=== PATIENT | male | born 1985 | race Caucasian/White ===

== ENCOUNTER 2023-02-24 06:07 | Outpatient (REF) | payer OTHER, SELFPAY ==
--- NOTE | ~2023-02-24 | XR_ITS ---
EXAMINATION: XR LUMBOSACRAL SPINE CLINICAL INFORMATION: Radiculopathy COMPARISON: None available. TECHNIQUE: Three views of the lumbosacral spine. FINDINGS: Mild curvature of the lumbar spine to the left. There may be transitional anatomy or 6 lumbar-type vertebral bodies. No fracture or dislocation. Mild lower lumbar spine degenerative spondylosis. Normal disc spaces. XR/XR lumbar spine 2-3V IMPRESSION: Mild curvature of the lumbar spine to the left and mild lower lumbar spine degenerative spondylosis.
[2023-02-24 06:31] LABS: MANUAL DIFF FLAG NO
[2023-02-24 07:27] LABS: Basophils Percent Auto 0.7 % (0-2); Eosinophils Absolute Auto 0.2 X10*3/uL (0.0-0.4); Hematocrit 45.7 % (42.0-52.0); Hemoglobin 15.6 g/dl (14.0-18.0); Imm Gran Abs Auto 0.01 X10*3/uL (0.00-0.03); Imm Gran Pct Auto 0.2 % (0.0-0.4); Lymphocytes Percent Auto 34.8 % (20-40); Mean Corpuscular HGB Conc 34.1 g/dl (31.0-36.0); Mean Corpuscular Hemoglobin 30.3 pg (27.0-33.0); Mean Corpuscular Volume 88.7 fL (80.0-98.0); Mean Platelet Volume 12.1 fL (9.4-12.4); Monocytes Absolute Auto 0.5 X10*3/uL (0.1-1.2); Monocytes Percent Auto 9.2 % (2-11); Neutrophils Absolute Auto 2.9 x10*3/uL (2.0-8.3); Neutrophils Percent Auto 51.1 % (45-73); Platelet Count 207 X10*3/uL (160-400); Red Blood Count 5.15 X10*6/uL (4.60-5.80); Red Cell Distribution Width 11.9 % (11.0-16.0); White Blood Count 5.8 X10*3/uL (4.8-10.8)
[2023-02-24 08:16] LABS: Alanine Aminotransferase 35 U/L (0-40); Albumin Level 4.3 g/dL (3.5-5.0); Alkaline Phosphatase 51 U/L (39-117); Anion Gap 11 (12-20); Aspartate Amino Transferase 26 U/L (5-37); Bilirubin Total 1.2 mg/dL (0.0-1.0); Blood Urea Nitrogen 16 mg/dL (9-16); Calcium 9.3 mg/dL (8.4-10.2); Carbon Dioxide 27 mmol/L (22-29); Chloride 108 mmol/L (96-108); Cholesterol 196 mg/dL; Estimated Glomerular Filt Rate > 60; Glucose Random 94 mg/dL (60-115); HDL Cholesterol 40 mg/dL; LDL Cholesterol Calculated 140 mg/dl; Potassium 4.1 mmol/L (3.3-5.1); Sodium 142 mmol/L (135-145); Total Protein 6.8 g/dL (6.5-8.0); Triglycerides 82 mg/dL
[2023-02-24 08:18] LABS: TSH reflex Free T4 2.09 uIU/mL (0.32-4.0)
== END 2023-02-24 06:08 | disposition home or self-care (01) ==
LOC: HO.XRAY 06:07
PROVIDERS: PCP Nurse Practitioner Family; Visit Provider Nurse Practitioner Family
DX: Z13.0 Encounter for screening for diseases of the blood and blood-forming organs and certain disorders involving the immune mechanism (principal); Z13.220 Encounter for screening for lipoid disorders; Z13.29 Encounter for screening for other suspected endocrine disorder; M54.16 Radiculopathy, lumbar region
CPT/HCPCS: 36415; 72100; 80053; 80061; 84443; 85025

== ENCOUNTER 2023-08-17 08:33 | Outpatient (AMB) | payer OTHER, SELFPAY ==
[2023-08-17 08:30] VITALS: BP 116/82; PULSE 56; O2SAT 98; BMI 35.9
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
== END 2023-08-17 08:55 | disposition home or self-care (01) ==
PROVIDERS: PCP Nurse Practitioner Family; Visit Provider Nurse Practitioner Family
DX: M54.16 Radiculopathy, lumbar region (principal); T59.811A Toxic effect of smoke, accidental (unintentional), initial encounter; G47.33 Obstructive sleep apnea (adult) (pediatric); E78.5 Hyperlipidemia, unspecified
CPT/HCPCS: 99214

== ENCOUNTER 2023-10-12 10:26 | Outpatient (AMB) | payer OTHER, SELFPAY ==
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
[2023-10-12 10:30] VITALS: BP 118/82; PULSE 77; O2SAT 97; BMI 36.9
== END 2023-10-12 10:44 | disposition home or self-care (01) ==
PROVIDERS: PCP Nurse Practitioner Family; Referring Provider Nurse Practitioner Family; Visit Provider Internal Medicine Pulmonary Disease
DX: T59.811A Toxic effect of smoke, accidental (unintentional), initial encounter (principal); R06.09 Other forms of dyspnea
CPT/HCPCS: 99204

== ENCOUNTER → 2023-10-12 10:26 | Outpatient (BNVA) | payer OTHER, SELFPAY | PROVIDERS: PCP Nurse Practitioner Family; Referring Provider Nurse Practitioner Family; Visit Provider Internal Medicine Pulmonary Disease | DX: T59.811A Toxic effect of smoke, accidental (unintentional), initial encounter (principal); R06.09 Other forms of dyspnea | CPT/HCPCS: 99202 ==

== ENCOUNTER 2023-11-24 07:00 | Outpatient (RCR) | payer OTHER, SELFPAY ==
--- NOTE | 2023-10-16 10:23 | MHC.PT.EP ---
[facility] [place] Office [place] Office [place] Office [address] Luz Hernandez [address] [phone] F: [phone] F: [phone] F: [phone] F: [phone] Physical Therapy Plan of Care Date of Evaluation: 10/16/23 Date of Surgery: none. Diagnosis: low back pain Assessment: Patient is a 38 year old R handed male who presents with s/s consistent with low back pain. 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 Patient past medical history includes sleep apnea and PTSD. Current impairments include pain, posture, ROM, strength, flexibility, activity tolerance and functional mobility. Functional limitations include decreased ability to walk, exercise, stand longer duration, squat, lift and run. Patient is motivated with good rehab potential. Skilled PT will address impairments and functional limitations in order to achieve goals. Frequency and Duration: The patient will be seen 2x/week for 5 weeks Short Term Goals: I with HEP - 2 weeks Centralized s/s - 3 weeks Tissue tension of lumbar spine and piriformis absent - 3 weeks Snf Goals: Able to walk/stand 1 hour or greater without increased s/s - 5 weeks Oswestry 12% or less - 5 weeks Max pain with ADLs - 2/10 - 5 weeks I with central/periph concept - 5 weeks Treatment Plan: Modalities to reduce pain, spasms and effusion. Manual therapy to restore motion and function. Therapeutic exercise to improve strength and flexibility. Neuromuscular re-education for posture and balance. Therapeutic activities to return to functional activities of daily living. Electronically signed by: Derrek Mccallum, PT Please sign and return to therapist. Thank you for your referral.
--- NOTE | 2024-06-13 11:09 | MHC.PT.DC ---
[facility] [place] Office [address] Luz Hernandez [address] [phone] F: [phone] F: [phone] F: [phone] F: [phone] Physical Therapy Discharge Report Diagnosis: low back pain Date of Surgery: none. Date of Evaluation: 10/16/23 Date of Discharge: 01/05/24 Treatments to Date: 7 Cancellations to Date: No Shows to Date: Discharge Status: Independent with HEP Discharge Summary: 11/24/23: pt with significantly less s/s than when he started. improved understanding of how to manage s/s when he does feel the onset. he is I with HEP. s/s centralized. tissue tension still present but to minimal degree. He is able to walk and stand > 1 hour without increased s/s . Max pain with ADLs 11/11. Oswestry 28%. 11/22/23: still with increased R piriformis tissue tension. he does respond well to above program and still needs continued hip strength, flex symmetry. 11/13/23: increasing independence. progressing well. still with pain with walking, group home weight bearing. strength and flexibility discrepancies still present. continue to progress as tolerated. 11/06/23: pt is progressing well. we are taping down to 1x/week for 2 more weeks and with likely transition to stretching and core strength HEP. 10/30/23: pt progressing well with skilled PT. no adverse reactions. reduced pain overall. we will progress functional activities NV. 10/25/23: pt progressing well with skilled PT. added stretching today and pt notes reduced s/s into LE. reduced severity around SI/lumbar area. continue to progress core stab and flex. 10/23/23: Pt progressed with skilled PT. added stretching and manual intervention. IFC to finish. assess response NV. normal skin presentation post. Patient is a 38 year old R handed male who presents with s/s consistent with low back pain. 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 Patient past medical history includes sleep apnea and PTSD. Current impairments include pain, posture, ROM, strength, flexibility, activity tolerance and functional mobility. Functional limitations include decreased ability to walk, exercise, stand longer duration, squat, lift and run. Patient is motivated with good rehab potential. Skilled PT will address impairments and functional limitations in order to achieve goals. Electronically signed by: Derrek Mccallum, PT Please sign and return to therapist. Thank you for your referral.
== END 2024-06-13 11:10 | disposition home or self-care (01) ==
LOC: HO.PTCHIC 07:00
PROVIDERS: PCP Nurse Practitioner Family; Visit Provider Nurse Practitioner Family
DX: M54.16 Radiculopathy, lumbar region (principal)
CPT/HCPCS: 97014; 97110; 97140; 97161

== ENCOUNTER 2023-11-24 08:54 | Outpatient (REF) | payer OTHER, SELFPAY ==
[2023-11-24 08:32] VITALS: PULSE 80; RESP 14; O2SAT 97
--- NOTE | 2023-11-24 11:20 | PFT_ITS ---
Flows: FEV1: 101 % of predicted at 5.19 L FVC: 99 % of predicted at 6.40 L FEV1/FVC: 81 % Bronchodilator response: Absent Volumes: Total lung capacity: 90 % of predicted at 7.80 L Residual volume: 67 % of predicted at 1.29 L Slow vital capacity: 96 % of predicted at 6.51 L Expiratory reserve volume: 63 % of predicted at 1.37 L Diffusion capacity: Normal Impression: No obstructive or restrictive ventilatory defect. No bronchodilator response. Essentially normal pulmonary function test. MTDD
== END 2023-11-24 08:55 | disposition home or self-care (01) ==
LOC: HO.RESP 08:54
PROVIDERS: Visit Provider Internal Medicine Pulmonary Disease
DX: T59.811A Toxic effect of smoke, accidental (unintentional), initial encounter (principal)
CPT/HCPCS: 94010; 94640; 94727; 94729

== ENCOUNTER → 2023-11-24 11:20 | Outpatient (BNV) | payer OTHER, SELFPAY | PROVIDERS: Visit Provider Internal Medicine Pulmonary Disease | DX: R06.09 Other forms of dyspnea (principal) | CPT/HCPCS: 94060; 94727; 94729 ==

== ENCOUNTER 2023-12-08 15:22 | Outpatient (REF) | payer OTHER, SELFPAY ==
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
== END 2023-12-08 15:23 | disposition home or self-care (01) ==
LOC: HO.CT 15:22
PROVIDERS: PCP Nurse Practitioner Family; Visit Provider Internal Medicine Pulmonary Disease
DX: T59.811A Toxic effect of smoke, accidental (unintentional), initial encounter (principal)
CPT/HCPCS: 71250

== ENCOUNTER 2023-12-13 08:54 | Outpatient (AMB) | payer OTHER, SELFPAY ==
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
[2023-12-13 09:05] VITALS: BP 122/78; PULSE 66; O2SAT 99; BMI 37.6
== END 2023-12-13 09:19 | disposition home or self-care (01) ==
PROVIDERS: PCP Nurse Practitioner Family; Referring Provider Nurse Practitioner Family; Visit Provider Internal Medicine Pulmonary Disease
DX: T59.811A Toxic effect of smoke, accidental (unintentional), initial encounter (principal); R91.8 Other nonspecific abnormal finding of lung field
CPT/HCPCS: 99214

== ENCOUNTER → 2023-12-13 08:54 | Outpatient (BNVA) | payer OTHER, SELFPAY | PROVIDERS: PCP Nurse Practitioner Family; Visit Provider Internal Medicine Pulmonary Disease | DX: J45.909 Unspecified asthma, uncomplicated (principal); T59.811A Toxic effect of smoke, accidental (unintentional), initial encounter; R91.8 Other nonspecific abnormal finding of lung field; Z87.891 Personal history of nicotine dependence | CPT/HCPCS: 99212 ==

== ENCOUNTER 2024-02-21 07:52 | Outpatient (AMB) | payer OTHER, SELFPAY ==
--- NOTE | 2024-02-21 07:55 | A.OFFPC_ITS ---
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 Pt is active . He has put in 20 yrs and will be retiring next year. Reports constant back pain and right hip pain for the past few years. Unable to walk more than a mile. Pain in the right hip radiating into the leg. Has had PT a month ago. Not much improvement. Tried OTC meds with minimal relief. Reluctant to take prescription anti inflammatories without exact diagnosis. Gives history of PTSD. Would like to speak to a therapist. [facility] Medical History (Updated 02/21/24 @ 08:29 by Kalpesh Sheldon MD) Lumbar back pain with radiculopathy affecting right lower extremity Adjustment disorder Surgical History No pertinent past surgical history Family History Father COPD (chronic obstructive pulmonary disease) CHF (congestive heart failure) Mother Hypertension High cholesterol Brother High cholesterol Maternal Grandfather Skin cancer Social History Housing: House Alcohol intake: current Alcohol intake frequency: a few times a week Alcohol type: hard liquor Patient Tobacco Use Status: Current someday Tobacco user Tobacco use type: Cigar and Smokeless Tobacco (Chewing Tobacco) e-Cigarette/Vaping Use: Never Used Second Hand Smoke Exposure: No service: Yes Current occupational status: employed Current occupational exposures/hazards: No Cognitive needs: No Hearing needs: No Vision needs: No Questionnaire PHQ-9 Over the last 2 weeks, how often have you been bothered by any of the following problems? 1. Little interest or pleasure in doing things: several days 2. Feeling down, depressed, or hopeless: several days 3. Trouble falling or staying asleep, or sleeping too much: nearly every day 4. Feeling tired or having little energy: more than half the days 5. Poor appetite or overeating: not at all 6. Feeling bad about yourself - or that you are a failure or have let yourself or your family down: not at all 7. Trouble concentrating on things, such as reading the newspaper or watching television: not at all 8. Moving or speaking so slowly that other people could have noticed. Or the opposite - being so fidgety or restless that you have been moving around a lot more than usual: not at all 9. Thoughts that you would be better off or of hurting yourself in some way: not at all Total score: 7 Depression Screening Interpretation: Positive Depression Screening Follow-up: Existing condition and Community Mental Health Worker F/U Depression Screening Done: Yes Source: Developed by Drs. Gwyn Ballesteros, Aby Lua, Selvin Albarran and colleagues, with an educational juvenal from [employer]. Thrive Questionnaire Date Thrive assessed: 02/21/24 I am a: Patient What is your living situation today?: I have a steady place to live Within the past 12 months, did the food you bought not last and you didn't have the money to get more?: Never true Within the past 12 months, did you worry whether your food would run out before you got money to buy more?: Never true Do you have trouble paying for medicines?: No Do you have trouble getting transportation to medical appointments?: No Do you have trouble paying your heating and electricity bill?: No Do you have trouble taking care of your child, family member or friend?: No Do you have trouble with day-to-day activities such as bathing, preparing meals, shopping, managing finances, etc.?: No Are you currently unemployed and looking for a job?: No Are you interested in more education?: No Please select the resources that you would like help with: None Currently or been in a relationship where the following occur: no concerns repo rted THRIVE Score: 0 AUDIT C Alcohol Use Questionnaire (AUDIT-C) 1. How often do you have a drink containing alcohol?: Monthly or less 2. How many drinks containing alcohol do you have on a typical day when you are drinking?: 1 or 2 3. How often do you have six or more drinks on one occasion?: Never Total Score: 1 HARSH-7 AMB Questionnaire HARSH-7 Date HARSH - 7 assessed: 02/21/24 Feeling nervous, anxious, or on edge: 2 = More than half the days Not being able to stop or control worryin = Not at all Worrying too much about different things: 2 = More than half the days Trouble relaxin = Not at all Being so restless that it is hard to sit still: 0 = Not at all Becoming easily annoyed or irritable: 2 = More than half the days Feeling afraid as if something awful might happen: 0 = Not at all Total HARSH-7 score (0-4 normal; 5-9 mild; 10-14 moderate; 15-21 severe): 6 Source: Developed by Drs. Gwyn Ballesteros, Aby Lua, Selvin Albarran and colleagues, with an educational juvenal from [employer]. Physical exam (Primary Care) Vital Signs: Last Vital Signs Pulse 77 02/21/24 07:57 BP 126/84 02/21/24 07:57 Pulse Ox 97 02/21/24 07:57 Oxygen Delivery Method Room Air 02/21/24 07:57 Care Plan Goal for BP management: BP is in range. BMI result Body Mass Index 36.6 BMI Assessment/Plan discussion: High (One pound per week weight suggested) BMI High, discussed plan: lifestyle, weight reduction, dietary and physical activity Tobacco/Smoking Status: Tobacco use Status Tobacco use date assessed 02/21/24 02/21/24 08:03 Patient Tobacco Use Status Current someday Tobacco 02/21/24 08:03 Tobacco use type Cigar,Smokeless Tobacco ( 02/21/24 08:03 Chewing Tobacco) e-Cigarette/Vaping Use Never Used 02/21/24 08:03 Are you ready to quit: No PHQ-9: PHQ-9 Score PHQ-9: Total score 7 02/21/24 08:03 Depression Screening Interpretation: Positive Depression Screening Follow-up: Existing condition and Community Mental Health Worker F/U Thrive Assessment: Date of Thrive Assessment Date Thrive assessed 02/21/24 02/21/24 08:03 Currently or been in a relationship where the following occur: no concerns reported Assessment and Plan Assessment & Plan (1) Lumbar back pain with radiculopathy affecting right lower extremity: Code(s): M54.16 - Radiculopathy, lumbar region Plan: MRI hip and lower back ordered. Pt was encuoraged to use muscle relaxants. (2) Borderline hyperlipidemia: Code(s): E78.5 - Hyperlipidemia, unspecified Plan: Will call with results (3) Annual physical exam: Code(s): Z00.00 - Encounter for general adult medical examination without abnormal findings Plan: Blood work ordered. Will call with results (4) Adjustment disorder: Code(s): F43.20 - Adjustment disorder, unspecified Plan: [facility] requesting a therapist Orders: Orders Basic Metabolic Panel Today E78.5 - Hyperlipidemia, unspecified, M54.16 - Radiculopathy, lumbar region Lipid Panel Today E78.5 - Hyperlipidemia, unspecified, M54.16 - Radiculopathy, lumbar region Liver Panel Today E78.5 - Hyperlipidemia, unspecified, M54.16 - Radiculopathy, lumbar region UA and rflx microscopic Today E78.5 - Hyperlipidemia, unspecified, M54.16 - Radiculopathy, lumbar region Complete Blood Count no Diff Today E78.5 - Hyperlipidemia, unspecified, M54.16 - Radiculopathy, lumbar region Thyroid Stimulating Hormone Today E78.5 - Hyperlipidemia, unspecified, M54.16 - Radiculopathy, lumbar region MR hip LT wo con Today M54.16 - Radiculopathy, lumbar region Coding Level of Care Code Est Pt Prev Care 18-39y(78026) Diagnoses Lumbar back pain with radiculopathy affecting right lower extremity M54.16 Borderline hyperlipidemia E78.5 Annual physical exam Z00.00 Adjustment disorder F43.20
[2024-02-21 07:57] VITALS: BP 126/84; PULSE 77; O2SAT 97; BMI 36.6
== END 2024-02-21 08:16 | disposition home or self-care (01) ==
PROVIDERS: PCP Nurse Practitioner Family; Visit Provider Internal Medicine
DX: M54.16 Radiculopathy, lumbar region (principal); E78.5 Hyperlipidemia, unspecified; Z00.00 Encounter for general adult medical examination without abnormal findings; F43.20 Adjustment disorder, unspecified
CPT/HCPCS: 99395

== ENCOUNTER 2024-05-29 09:16 | Outpatient (REF) | payer OTHER, SELFPAY ==
--- NOTE | ~2024-05-29 | MR_ITS ---
EXAMINATION: MR LUMBAR SPINE WITHOUT CONTRAST CLINICAL INFORMATION: Radiculopathy COMPARISON: None TECHNIQUE: MRI of the lumbar spine was obtained using routine sequences without contrast. FINDINGS: For the purposes of this dictation, the last formed disc space is designated L5-S1. Hypoplastic or absent ribs at T12. Mild leftward curvature of the lumbar spine. Lumbar straightening. Trace anterolisthesis of L3 on L4. No suspicious marrow signal or focal osseous lesion. No significant marrow edema. Several small endplate Schmorl's nodes including type II marrow signal changes associated with a Schmorl's node along the anterior aspect of the L4 inferior endplate. The vertebral body heights are maintained. Mild multilevel disc dessication and height loss. The conus medullaris terminates at the level of L1. The distal spinal cord is normal in appearance. The cauda equina nerve roots appear normal. No significant abnormalities of the paraspinal musculature. Limited evaluation of the intra-abdominal structures without significant abnormalities. The abdominal aorta is of normal contour and caliber. SPINAL LEVELS: L1-L2: No significant spinal canal or neuroforaminal narrowing. L2-L3: Shallow disc bulge and mild facet arthropathy. Bilateral subarticular zone narrowing. No significant spinal canal or neural foraminal narrowing. L3-L4: Facet arthropathy, worst in moderate to severe on the right. Trace anterolisthesis with posterior disc uncovering. No significant central spinal canal stenosis. Bilateral subarticular zone narrowing and moderate bilateral neural foraminal narrowing, right greater than left. L4-L5: Facet arthropathy, shallow disc bulge. No significant central spinal canal stenosis. [id number] bilateral neural foraminal narrowing L5-S1: No significant spinal canal or neuroforaminal narrowing. Facet arthropathy. MR/MR lumbar spine wo con IMPRESSION: 1. Mild leftward curvature of the lumbar spine with superimposed multilevel spondylosis as described above without significant central spinal canal narrowing. Degenerative changes are most notable at L3-L4 where asymmetric right greater than left facet arthropathy results in trace anterolisthesis and moderate right greater than left neural foraminal narrowing 2. Please refer to numbering convention as above with last formed disc space designated L5-S1 and absent or hypoplastic ribs at T12. Electronically signed by: Abdoulaye Collier MD 06/17/2024 12:47 PM EDT RP
== END 2024-05-29 09:17 | disposition home or self-care (01) ==
LOC: HO.MRI 09:16
PROVIDERS: PCP Internal Medicine; Visit Provider Internal Medicine
DX: M54.16 Radiculopathy, lumbar region (principal)
CPT/HCPCS: 72148

== ENCOUNTER 2024-06-20 10:20 | Outpatient (AMB) | payer OTHER, SELFPAY ==
--- NOTE | 2024-06-20 10:35 | MHC.PC.OV ---
Vital Signs 06/20/24 10:37 Height 6 ft 5 in Weight 312 lb 4 oz BMI 37.0 BP 110/60 Blood Pressure Location Lt brachial Position Sitting Pulse 70 Pulse Source Pulse Oximeter Pulse Oximetry (%) 98 Oxygen Delivery Method Room Air Intake Visit Reasons: Knee pain/ Referral to ENT & Psy Intake Note: Patient is here to follow up on right Knee pain, requesting for referral to ENT for post nasal drip and Psy for PTSD and MRI result. Gradall Operator Required: No Grease Maker: Not Required per policy Accompanied by: Self / Same As Patient Allergies amoxicillin Allergy (Mild, Verified 06/20/24 10:37) Hives Tobacco use date assessed: 06/20/24 Dental Screening Dental Screen Date: 02/21/24 HPI HPI Comments History of Present Illness Details 39-year-old male presents to the office to discuss his medical conditions. Patient continues to have lower back pain. He recently had an MRI done and would like to discuss the results. Patient also reports history of an adjustment disorder with depression. 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 Also reporting symptoms of persistent postnasal drip and a nonproductive cough. [facility] Medical History (Updated 02/21/24 @ 08:29 by Kalpesh Sheldon MD) Lumbar back pain with radiculopathy affecting right lower extremity Adjustment disorder Surgical History No pertinent past surgical history Family History Father COPD (chronic obstructive pulmonary disease) CHF (congestive heart failure) Mother Hypertension High cholesterol Brother High cholesterol Maternal Grandfather Skin cancer Social History Housing: House Alcohol intake: current Alcohol intake frequency: a few times a week Alcohol type: hard liquor Patient Tobacco Use Status: Current someday Tobacco user Tobacco use type: Cigar (once a month) and Smokeless Tobacco (Chewing Tobacco) e-Cigarette/Vaping Use: Never Used Second Hand Smoke Exposure: Yes service: Yes Current occupational status: employed Current occupational exposures/hazards: No Cognitive needs: No Hearing needs: No Vision needs: No Questionnaire PHQ-9 Over the last 2 weeks, how often have you been bothered by any of the following problems? 1. Little interest or pleasure in doing things: several days 2. Feeling down, depressed, or hopeless: several days 3. Trouble falling or staying asleep, or sleeping too much: several days 4. Feeling tired or having little energy: nearly every day 5. Poor appetite or overeating: not at all 6. Feeling bad about yourself - or that you are a failure or have let yourself or your family down: nearly every day 7. Trouble concentrating on things, such as reading the newspaper or watching television: nearly every day 8. Moving or speaking so slowly that other people could have noticed. Or the opposite - being so fidgety or restless that you have been moving around a lot more than usual: not at all 9. Thoughts that you would be better off or of hurting yourself in some way: not at all Total score: 12 Depression Screening Interpretation: Positive Depression Screening Follow-up: Community Mental Health Worker F/U Depression Screening Done: Yes Source: Developed by Drs. Gwyn Ballesteros, Aby Lua, Selvin Albarran and colleagues, with an educational juvenal from [employer]). Thrive Questionnaire Date Thrive assessed: 02/21/24 Are you currently unemployed and looking for a job?: No AUDIT C Alcohol Use Questionnaire (AUDIT-C) 1. How often do you have a drink containing alcohol?: 2-3 times a week 2. How many drinks containing alcohol do you have on a typical day when you are drinking?: 1 or 2 Total Score: 3 HARSH-7 AMB Questionnaire HARSH-7 Date HARSH - 7 assessed: 06/20/24 Feeling nervous, anxious, or on edge: 3 = Nearly every day Not being able to stop or control worryin = Nearly every day Worrying too much about different things: 3 = Nearly every day Trouble relaxin = Nearly every day Being so restless that it is hard to sit still: 3 = Nearly every day Becoming easily annoyed or irritable: 3 = Nearly every day Feeling afraid as if something awful might happen: 3 = Nearly every day Total HARSH-7 score (0-4 normal; 5-9 mild; 10-14 moderate; 15-21 severe): 21 Source: Developed by Drs. Gwyn Ballesteros, Selvin Carranzaoenke and colleagues, with an educational juvenal from [employer] ([employer]). Physical exam (Primary Care) Vital Signs: Last Vital Signs Pulse 70 06/20/24 10:37 BP 110/60 06/20/24 10:37 Pulse Ox 98 06/20/24 10:37 Oxygen Delivery Method Room Air 06/20/24 10:37 BMI result Body Mass Index 37.0 Tobacco/Smoking Status: Tobacco use Status Tobacco use date assessed 06/20/24 06/20/24 10:57 Patient Tobacco Use Status Current someday Tobacco 06/20/24 10:57 Tobacco use type Cigar (once a month), 06/20/24 10:57 Smokeless Tobacco (Chewing Tobacco) e-Cigarette/Vaping Use Never Used 06/20/24 10:57 PHQ-9: PHQ-9 Score PHQ-9: Total score 12 06/20/24 10:57 Depression Screening Interpretation: Positive Depression Screening Follow-up: Community Mental Health Worker F/U Thrive Assessment: Date of Thrive Assessment Date Thrive assessed 02/21/24 06/20/24 10:57 Const General: cooperative and healthy appearing Nutritional Appearance: well nourished Orientation/consciousness: patient oriented x3 Limitations: no limitations HENMT Head: Yes normal to inspection Eyes General: appearance normal, both eyes and all related structures Neck Neck: Yes normal visual inspection Chest Chest palpation & inspection: normal palpation of entire chest wall Resp Effort & Inspection: normal respiratory effort Neuro General: patient oriented x3 Assessment and Plan Assessment & Plan (1) PTSD (post-traumatic stress disorder): Code(s): F43.10 - Post-traumatic stress disorder, unspecified Plan: Appointment with psychiatry/therapist requested. (2) Lumbar back pain with radiculopathy affecting right lower extremity: Code(s): M54.16 - Radiculopathy, lumbar region Plan: MRI of the spine shows foraminal stenosis. An appointment with the spinal surgeon to be made. (3) Postnasal Drip: Code(s): R09.82 - Postnasal drip Plan: ENT appointment requested. Flonase has been added to the regimen. Orders: Referrals Ear/Nose/Throat Referral F43.10 - Post-traumatic stress disorder, unspecified, R09.82 - Postnasal drip Psychiatry Outpatient Consultation Service F43.10 - Post-traumatic stress disorder, unspecified Neuro Spine Referral M54.16 - Radiculopathy, lumbar region Coding Level of Care Code Est Pt Level 4 (00100) Complex EM visit Add On G2211 Diagnoses PTSD (post-traumatic stress disorder) F43.10 Lumbar back pain with radiculopathy affecting right lower extremity M54.16 Postnasal Drip R09.82
[2024-06-20 10:37] VITALS: BP 110/60; PULSE 70; O2SAT 98; BMI 37.0
== END 2024-06-20 11:16 | disposition home or self-care (01) ==
PROVIDERS: PCP Internal Medicine; Visit Provider Internal Medicine
DX: F43.10 Post-traumatic stress disorder, unspecified (principal); M54.16 Radiculopathy, lumbar region; R09.82 Postnasal drip

== ENCOUNTER → 2024-06-20 10:20 | Outpatient (BNVA) | payer OTHER, SELFPAY | PROVIDERS: PCP Internal Medicine; Visit Provider Internal Medicine | DX: M54.16 Radiculopathy, lumbar region (principal); F43.10 Post-traumatic stress disorder, unspecified; R09.82 Postnasal drip | CPT/HCPCS: 99212 ==

== ENCOUNTER 2024-06-28 10:24 | Outpatient (AMB) | payer OTHER, SELFPAY ==
--- NOTE | 2024-06-28 10:33 | HO.SPINEOV ---
Intake Visit Reasons: low back pain Intake Note: Ms. Lowe is here today c/o low back pain. 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 He generally just put up with the discomfort, but over time it has been getting progressively worse. He used to be very active, now has had 2 avoid doing things like running because it will aggravate the symptoms significantly. The pain is localized over his right SI joint region and seems to radiate down around to his right hip. He does not have any radicular pain shooting down the leg, tingling numbness weakness, bowel bladder incontinence etc.. He did undergo an MRI showing some foraminal stenosis on the right at L3 and was sent today for an evaluation. He can have a flare-up from time to time that will incapacitated him for few days. Generally he gets through this with things like ibuprofen, localized skin patches and tiger balm etc.. He did do physical therapy for awhile. It did seem to help a little bit. When he was doing the band exercises with abduction for his hips it seemed to make the symptoms get worse. He still does some of them at home. PMH: Vasectomy Social hx: Does not smoke drink use any recreational drugs Medications: None Allergies: Amoxicillin Physical exam: He is 6'3 , 295 lb. Strength and reflexes are normal. He does have pain with internal and external rotation of his legs that does mimic the pain that he gets when he is walking. Imaging review: Lumbar MRI shows varying degrees of mild degenerative disc disease, there is moderate right L3 stenosis. No significant central canal stenosis. A mild levoscoliosis but nothing meaningful. 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 The symptoms have slowly gotten worse over time. He has no radicular symptoms down the leg. He can get flare-ups from time to time that will incapacitated him for a few days. He generally gets out of this with tincture of time, ibuprofen etc.. Standing and walking he can feel it most of the time, running can make it flare-up a lot. On exam, he has reassuring neurological examination, does have tenderness over the SI joint and pain with internal and external rotation of his hip. His lumbar MRI does show some mild degenerative disc disease with a very subtle levoscoliosis, there is some mild to moderate right foraminal stenosis. Nothing on his MRI looks surgical at this time. I think what he is dealing with his likely some kind of overuse injury from the days of carrying very heavy packs going on extended 20-30 mi hikes with this weight on his back. It could be an SI joint inflammation, or some kind of tendinopathy. I do not think it is discogenic and he does not have any radicular symptoms to correlate to the L3 foraminal stenosis. I think what he would benefit most from is a physiatry evaluation. I will send him to Dr. Sandoval and Jordan GARY to see if they have any thoughts on what might help him. Thank you for allowing us to care for your patient. The total time spent with this visit with this patient was 45 minutes reviewing history, physical exam, lumbar imaging review, and implementation of treatment plan or further diagnostic testing Manas Marie MD,PhD [facility] Orders: Referrals Physiatry Referral M54.9 - Dorsalgia, unspecified Coding Level of Care Code New Pt Level 4 (03021) Diagnoses Back pain M54.9
== END 2024-06-28 11:07 | disposition home or self-care (01) ==
PROVIDERS: PCP Internal Medicine; Referring Provider Internal Medicine; Visit Provider Physician Assistant
DX: M54.9 Dorsalgia, unspecified (principal)
CPT/HCPCS: 99204

== ENCOUNTER → 2024-06-28 10:24 | Outpatient (BNVA) | payer OTHER, SELFPAY | PROVIDERS: PCP Internal Medicine; Visit Provider Physician Assistant | DX: M54.9 Dorsalgia, unspecified (principal) | CPT/HCPCS: 99202 ==

== ENCOUNTER 2024-08-08 14:21 | Outpatient (AMB) | payer OTHER, SELFPAY ==
--- NOTE | 2024-08-08 13:12 | A.OFFPSYCH_ITS ---
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 He served two tours in the [facility] in [place] and [place]. Pt stated he witnessed several deaths, bodies, and violence during his tours. He has been able to compartmentalize the memories and feelings most of the time for years, but its become more difficult over time; He has coped by working and by staying very task oriented during the day and then using alcohol at night. He reports the memories and images of the war are constantly intruding in his mind; He is on high alert no matter where he goes. he is always casing the the place for exits and to make sure his family is safe. He feels at times that all the violence he experienced and lived through was for no reason. 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 He himself had contemplated and planned a suicide in 2016 when he was overwhelmed with distress. He did not follow through because he thought of his children; He is very close with his and dedicated to his family. He is not currently suicidal but struggles with PTSD symptoms, feelings of guilt, remorse, and trying to make sense of all his experiences. Pt reports he drinks approximately 5 days a week and upt to 4 drinks. Pt stated he has come to the point where he feels he is unable to suppress his traumatic memories (has constant images playing in his mind from war), and feels he needs medications and psychotherapy. Past Psychiatric History: brief treatment in 2010 but feared judgement from peers Subjective Subjective Subjective Medication Compliance: Yes Side effects from medications: No Review of Systems Medical Review of Systems: unchanged Mental Status Exam Mental Status Exam Patient Appearance: Appropriate Patient Orientation: Person, Place, Time and Situation Level of Consciousness: Appropriate Patient Behavior: Appropriate, Swearing, Crying (tearful) and Poor Eye Contact (off and on ) Mood Description: Depressed Affect Description: Depressed Patient Cognition Impaired: No Ability to Follow Directions: Good Speech Pattern: Difficulty Finding Words, Appropriate and Coherent Memory Description: Intact and Episodic Impaired Hallucinations: None Delusions: Not Present Thought Process: Intact and Racing (some flooding of trauma related images, sensations, feelings) Thought Content: positive for Goal Oriented and positive for Loose Associations Judgement: Good Assessment and Plan Assessment & Plan (1) PTSD (post-traumatic stress disorder): Status: Acute Code(s): F43.10 - Post-traumatic stress disorder, unspecified Plan start Prozac 20 mg daily start gababpentin 100mg in evening consider EMDR therpay consider vet group therapy consider cutting back on etoh use Medications: New fluoxetine (Prozac) 20 mg PO DAILY 30 caps 1RF gabapentin 100 mg PO BEDTIME 30 caps 1RF Counseling and coordination of Care Pt. Self Management counseling: Maintenance-social rhythm, Mod caffeine/ETOH intake, General coping skills and Greif counseling Medication management counseling: Effectiveness, Side effects, Dosing range, Duration, Drug interaction and Adherence Diagnosis and Prognosis Counseling: Accuracy of diagnosis, Prognosis over time, Impact of diagnosis on life functions, Impact of family relationship, Probl ematic behaviors secondary to diagnosis and Adequacy of current interventions Details: I spent 75 minutes reviewing the record, seeing the patient and documenting in the medical record. Counseling provided to the patient/caregiver as outlined below. Addressed patient/caregiver concerns regarding current medication regime including effective adherence. Addressed patient/caregiver concerns regarding diagnosis and prognosis including accuracy of diagnosis, prognosis over time, impact of diagnosis. Addressed patient/caregiver concerns regarding impact of recent stressors. [facility] Medical History (Updated 06/28/24 @ 10:59 by ABDIRAHMAN Miller) Lumbar back pain with radiculopathy affecting right lower extremity Adjustment disorder Surgical History No pertinent past surgical history Family History Father COPD (chronic obstructive pulmonary disease) CHF (congestive heart failure) Mother Hypertension High cholesterol Brother High cholesterol Maternal Grandfather Skin cancer Social History Housing: House Alcohol intake: current Alcohol intake frequency: a few times a week Alcohol type: hard liquor Patient Tobacco Use Status: Current someday Tobacco user Tobacco use type: Cigar (once a month) and Smokeless Tobacco (Chewing Tobacco) e-Cigarette/Vaping Use: Never Used Second Hand Smoke Exposure: Yes service: Yes Current occupational status: employed Current occupational exposures/hazards: No Cognitive needs: No Hearing needs: No Vision needs: No Social History: lives with of 17 years and his 2 children age 11 and 15. He works FT in [employer]; grew up with both parents until they divorce when he was 10 yrs old; has an older brother; was very close to father who was also in ; father from unexpected complication of COPD in 2021 at the age of 66. Substance History: etoh 5 days a week 4 drinks Trauma History: yes age 22- 2 tours in the [facility] 2008 and 2010. Coding Level of Care Code Psych Diag Eval w/Med (22954) Diagnoses PTSD (post-traumatic stress disorder) F43.10
== END 2024-08-08 15:42 | disposition home or self-care (01) ==
LOC: HO.HOP 14:21
PROVIDERS: PCP Internal Medicine; Visit Provider Clinical Nurse Specialist Psychiatric/Mental Health
DX: F43.10 Post-traumatic stress disorder, unspecified (principal)
CPT/HCPCS: 90792

== ENCOUNTER → 2024-08-08 14:21 | Outpatient (BNVA) | payer OTHER, SELFPAY | PROVIDERS: PCP Internal Medicine; Visit Provider Clinical Nurse Specialist Psychiatric/Mental Health | DX: F43.10 Post-traumatic stress disorder, unspecified (principal); F10.20 Alcohol dependence, uncomplicated; Z91.85 Personal history of military service; Z91.82 Personal history of military deployment | CPT/HCPCS: 90792 ==

== ENCOUNTER 2024-09-05 09:59 | Outpatient (AMB) | payer OTHER, SELFPAY ==
--- NOTE | 2024-09-05 10:22 | MHC.OFFVISPS ---
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 He reports less reactivity. He did not take gabapentin; he has cut back ETOH use. No side effects from meds. Pt reports he can think about war memories without feeling completely overwhelmed at times. He is still sorting through his experiences and making sense of them. Discussed trauma and development of internal parts to cope. Discussed positive psychology strategies to utilize in current day life to increase good feelings when not in crisis/ high adrenaline situations. No SI or HI. Past Psychiatric History: brief outpt treatment in 2010 but feared judgement from peers Subjective Subjective Subjective Medication Compliance: Yes Side effects from medications: No Review of Systems Medical Review of Systems: unchanged Mental Status Exam Mental Status Exam Patient Appearance: Well Grooomed and Appropriate Patient Orientation: Person, Place, Time and Situation Level of Consciousness: Awake, Appropriate and Alert Patient Behavior: Appropriate, Talkative and Cooperative Mood Description: Anxious and Sad Affect Description: Anxious, Blunted and Sad Patient Cognition Impaired: No Ability to Follow Directions: Good Speech Pattern: Appropriate and Coherent Memory Description: Episodic Impaired Hallucinations: None Delusions: Not Present Thought Process: Intact Thought Content: positive for Intact and positive for Loose Associations Judgement: Good Assessment and Plan Assessment & Plan (1) PTSD (post-traumatic stress disorder): Status: Acute Code(s): F43.10 - Post-traumatic stress disorder, unspecified Plan continue prozac consider individual therapy Medications: Refilled fluoxetine (Prozac) 20 mg PO DAILY 30 caps 1RF Counseling and coordination of Care Pt. Self Management counseling: Maintenance-social rhythm, Mod caffeine/ETOH intake, Sleep hygiene, Behavior activation, Cognitive restructuring, General coping skills, Greif counseling and Problem solving Medication management counseling: Effectiveness, Side effects, Dosing range, Duration, Drug interaction and Adherence Diagnosis and Prognosis Counseling: Accuracy of diagnosis, Prognosis over time, Impact of diagnosis on life functions, Impact of family relationship, Problematic behaviors secondary to diagnosis and Adequacy of current interventions Details: I spent 55 minutes reviewing the record, seeing the patient and documenting in the medical record. Counseling provided to the patient/caregiver as outlined below. Addressed patient/caregiver concerns regarding current medication regime including effective adherence. Addressed patient/caregiver concerns regarding diagnosis and prognosis including accuracy of diagnosis, prognosis over time, impact of diagnosis. Addressed patient/caregiver concerns regarding impact of recent stressors. [facility] Medical History (Updated 06/28/24 @ 10:59 by ABDIRAHMAN Miller) Lumbar back pain with radiculopathy affecting right lower extremity Adjustment disorder Surgical History No pertinent past surgical history Family History Father COPD (chronic obstructive pulmonary disease) CHF (congestive heart failure) Mother Hypertension High cholesterol Brother High cholesterol Maternal Grandfather Skin cancer Social History Housing: House Alcohol intake: current Alcohol intake frequency: a few times a week Alcohol type: hard liquor Patient Tobacco Use Status: Current someday Tobacco user Tobacco use type: Cigar (once a month) and Smokeless Tobacco (Chewing Tobacco) e-Cigarette/Vaping Use: Never Used Second Hand Smoke Exposure: Yes service: Yes Current occupational status: employed Current occupational exposures/hazards: No Cognitive needs: No Hearing needs: No Vision needs: No Social History: lives with of 17 years and his 2 children age 11 and 15. He works FT in [employer]; grew up with both parents until they divorce when he was 10 yrs old; has an older brother; was very close to father who was also in ; father from unexpected complication of COPD in 2021 at the age of 66. Substance History: etoh 5 days a week 4 drinks Trauma History: yes age 22- 2 tours in [facility] 2008 and 2010. Coding Level of Care Code Est Pt Level 4 (84779) Therapy 30m w/E&M (84919) Diagnoses PTSD (post-traumatic stress disorder) F43.10
--- OUTSIDE RECORDS SUMMARY | 2024-09-11 01:26 | XMS_ITS | Continuity of Care Document ---
Author Name [facility] Organization [facility] Care Team Providers Care Continuous Improvement Coordinator Name Role Phone [facility] Unavailable Unavailable Problems Combined list of problems from Department of Defense and Veterans Affairs facilities. It does not include entries that were removed or entered in error. Problem Status Onset Date Problem Type Date of Resolution Comments Source visit for: screening mental / developmental disorders Inactive Condition DoD visit for: examination of subpopulation Active Condition DoD adjustment disorder with anxiety Active Condition DoD marital problem Inactive Condition DoD adjustment disorder Active Condition Do D atopic dermatitis Inactive Condition DoD astigmatism Active Condition DoD visit for: follow-up exam Active Condition DoD visit for: administrative purpose Active Condition DoD visit for: laboratory Active Condition DoD visit for: ears / hearing exam Active Condition DoD visit for: services physical Active Condition DoD ankle sprain left Inactive Condition [facility] Patient Counseling: Inactive Condition No treatment indicated per this interview DoD Need For Vaccination Against Single Disease Inactive Condition DoD Need For Vaccination Against Combinations Of Diseases Inactive Condition DoD visit for: screening exam pulmonary tuberculosis Inactive Condition DoD visit for: screening exam Inactive Condition DoD refractive error Active Condition DoD visit for: new patient eye exam Inactive Condition DoD Allergies, Adverse Reactions, Alerts Combined list of allergies from Department of Defense and Veterans Affairs facilities. It does not include entries that were removed or entered in error. Substance Category Reaction Severity Reaction type Status Date Reported Comments Source AMOXICILLIN (AMOXICILLIN TRIHYDRATE) Drug allergy (disorder) Unknown active 01/08/2009 [facility] Immunizations Combined list of available immunizations from the Department of Defense and Veterans Affairs facilities. Immunization Series Date Given Administered By Site Reaction Lot Number CVX Code Drug Judo Teacher Status Comments Source influenza, injectable, quadrivalent, preservative free 2021 JANES GILLETTE () Not Given influenza , injectabl e, quadrival ent, preservat tino free [facility] Influenza, injectable, quadrivalent, preservative free 0 2021 Unknown, Provider TRS 150 [employer] (SKB) complet ed Influenza , injectabl e, quadrival ent, preservat tino free DoD COVID-19, mRNA, LNP-S, PF, 30 mcg/0.3 mL dose 2020 JANES GILLETTE () Not Given COVID-19, mRNA, LNP-S, PF, 30 mcg/0.3 mL dose DoD SARS-COV-2 (COVID-19) vaccine, mRNA, spike protein, LNP, preservative free, 30 mcg/0.3mL dose 0 2020 Unknown, Provider TRS 208 [facility], [facility] (PFR) complet ed SARS-COV- 2 (COVID-19 ) vaccine, mRNA, spike protein, LNP, preservat tino free, 30 mcg/0.3mL dose DoD COVID-19, mRNA, LNP-S, PF, 30 mcg/0.3 mL dose 2020 JANES GILLETTE () Not Given COVID-19, mRNA, LNP-S, PF, 30 mcg/0.3 mL dose DoD SARS-COV-2 (COVID-19) vaccine, mRNA, spike protein, LNP, preservative free, 30 mcg/0.3mL dose 0 2020 Unknown, Provider TRS 208 [employer] (PFR) complet ed SARS-COV- 2 (COVID-19 ) vaccine, mRNA, spike protein, LNP, preservat tino free, 30 mcg/0.3mL dose DoD Influenza, injectable, quadrivalent, preservative free 1 2020 [id number] 150 [employer] (SEQ) comple t ed Influenza , injectabl e, quadrival ent, preservat tino free DoD influenza, injectable, quadrivalent, preservative free 2019 EVERARDO HAMILTON () Not Given influenza , injectabl e, quadrival ent, preservat tino free DoD Influenza, injectable, quadrivalent, preservative free 0 2019 150 (MVX) complet ed Influenza , injectabl e, quadrival ent, preservat tino free DoD influenza, injectable, quadrivalent, preservative free 2018 EVERARDO HAMILTON () Not Given influenza , injectabl e, quadrival ent, preservat tino free DoD Influenza, injectable, quadrivalent, preservative free 0 2018 150 (MVX) complet ed Influenza , injectabl e, quadrival ent, preservat tino free DoD influenza, injectable, quadrivalent, contains preservative 1 2018 [id number] 158 [employer] (SKB) complet ed influenza , injectabl e, quadrival ent, contains preservat tino DoD influenza, injectable, quadrivalent, contains preservative 1 2017 [id number] 158 Unknown (UNK) comple t ed influenza , injectabl e, quadrival ent, contains preservat tino DoD Influenza, injectable, quadrivalent, preservative free 1 2016 [id number] 150 [employer] (SKB) complet ed Influenza , injectabl e, quadrival ent, preservat tino free DoD influenza, injectable, quadrivalent, contains preservative 1 2015 [id number] 158 [employer]irus (SEQ) complet ed influenza , injectabl e, quadrival ent, contains preservat tino DoD measles, mumps and rubella virus vaccine 2 2014 [id number] 03 Merck (MSD) complet ed measles, mumps and rubella virus vaccine DoD Influenza, seasonal, injectable 2013 CARMELA ROQUE () Not Given Influenza , seasonal, injectabl e DoD influenza, injectable, quadrivalent, contains preservative 1 2013 [id number] 158 Novartis [employer]aisert[employer] l Adriano. (NOV) complet ed influenza , injectabl e, quadrival ent, contains preservat tino DoD Influenza, seasonal, injectable 0 2012 141 (MVX) complet ed Influenza , seasonal, injectabl e DoD Influenza, seasonal, injectable, preservative free 1 2012 [id number] 140 Unknown (UNK) comple t ed Influenza , seasonal, injectabl e, preservat tino free DoD Influenza, seasonal, injectable, preservative free 1 2011 [id number] 140 Nov[employer] Adriano. (NOV) complet ed Influenza , seasonal, injectabl e, preservat tino free DoD tuberculin skin test; purified protein derivative solution, intradermal 0 2010 TRUDI BRIGGS 96 Transcribed (TRS) complet ed tuberculi n skin test; purified protein derivativ e solution, intraderm al DoD Influenza, seasonal, injectable, preservative free 1 2010 [id number] 140 Unknown (UNK) comple t ed Influenza , seasonal, injectabl e, preservat tino free DoD typhoid Vi capsular polysaccharid e vaccine 1 2010 [id number] 101 Sanofi Pasteur ([facility]) complet ed typhoid Vi capsular polysacch aride vaccine DoD anthrax vaccine 2 2010 [id number] 24 [facility] ([facility]) complet ed anthrax vaccine DoD tetanus toxoid, reduced diphtheria toxoid, and acellular pertu is vaccine, adsorbed 1 2010 [id number] 115 Sanofi Pasteur ([facility]) complet ed tetanus toxoid, reduced diphtheri a toxoid, and acellular pertussis vaccine, adsorbed DoD influenza virus vaccine, unspecified formulation 1 2010 [id number] 88 [facility] ([facility]) complet ed influenza virus vaccine, unspecifi ed formulati on DoD hepatitis A vaccine, adult dosage 4 2009 [id number] 52 [employer] (SKB) complet ed hepatitis A vaccine, adult dosage DoD Novel influenza-H1N 1-09, injectable 1 2008 [id number] 127 [employer]. (NOV) complet ed Novel influenza -Q0V8-80, injectabl e DoD anthrax vaccine 1 2008 [id number] 24 [facility] ([facility]) complet ed anthrax vaccine DoD typhoid Vi capsular polysaccharid e vaccine 1 2008 [id number] 101 Sanofi Pasteur ([facility]) complet ed typhoid Vi capsular polysacch aride vaccine DoD influenza virus vaccine, live, attenuated, for intranasal use 1 2007 [id number] 111 Other (OTH) complet ed influenza virus vaccine, live, attenuate d, for intranasa l use DoD influenza virus vaccine, live, attenuated, for intranasal use 1 2006 [id number] 111 [employer] (MED) complet ed influenza virus vaccine, live, attenuate d, for intranasa l use DoD influenza virus vaccine, live, attenuated, for intranasal use 1 2005 UNK 111 Unknown (UNK) comple t ed influenza virus vaccine, live, attenuate d, for intranasa l use DoD hepatitis A vaccine, adult dosage 3 2005 UNK 52 Unknown (UNK) comple t ed hepatitis A vaccine, adult dosage DoD vaccinia (smallpox) vaccine 1 2005 [id number] 75 Rogelio-Ayreinat (WAL) complet ed vaccinia (smallpox ) vaccine DoD typhoid Vi capsular polysaccharid e vaccine 1 2005 [id number] Sanofi Pasteur (PMC) complet ed typhoid Vi capsular polysacch aride vaccine DoD hepatitis A and hepatitis B vaccine 2 2005 [id number] 104 [employer] (SKB) complet ed hepatitis A and hepatitis B vaccine DoD varicella virus vaccine 1 2004 NONE 21 (NON) Not Given varicella virus vaccine DoD hepatitis B vaccine, adult dosage 1 2004 NONE 43 (NON) Not Given hepatitis B vaccine, adult dosage DoD hepatitis A vaccine, adult dosage 1 2004 [id number] 52 [employer] (SKB) complet ed hepatitis A vaccine, adult dosage DoD measles, mumps and rubella virus vaccine 1 2004 [id number] 03 Merck (MSD) complet ed measles, mumps and rubella virus vaccine DoD tetanus and diphtheria toxoids, adsorbed, preservative free, for adult use (2 Lf of tetanus toxoid and 2 Lf of diphtheria toxoid) 1 2004 [id number] 09 Sanofi Pasteur (PMC) complet ed tetanus and diphtheri a toxoids, adsorbed, preservat tino free, for adult use (2 Lf of tetanus toxoid and 2 Lf of diphtheri a toxoid) DoD poliovirus vaccine, inactivated 1 2004 [id number] 10 Sanofi Pasteur (PMC) complet ed polioviru s vaccine, inactivat ed DoD influenza virus vaccine, split virus (incl. purified surface antigen)-reti red CODE 1 2004 [id number] 15 [employer]. (MED) complet ed influenza virus vaccine, split virus (incl. purified surface antigen)- retired CODE DoD meningococcal polysaccharid e vaccine (MPSV4) 1 2004 [id number] 32 Sanofi Pasteur (PMC) complet ed meningoco ccal polysacch aride vaccine (MPSV4) DoD Encounters Combined list of: 1) Encounters from Department of Veterans Affairs facilities going back up to thelast 18 months. 2) Encounters from the Department of Defense facilities going back up to 280 months. Location Location Details Encounter Type Encounter Number Reason For Visit Attending Provider ADM Date DC Date Status Disposition Source [place] [facility] [place] OUTPATIENT [id number] YEHUDA Vides 08/30 Released w/o Limitations [facility] [place] [facility]) [place] OUTPATIENT [id number] LATANYA PERALTA 08/31 Released w/o Limitations [place] [place] ) [facility](1st C.R.O.W.S .) OUTPATIENT [id number] IMAN Miranda 01/24 Released w/o Limitations [facility](1 st C.R.O.W .S.) [facility]([place] 2-2 SBCT) OUTPATIENT [id number] left ankle pain TRUDI SAGASTUME 08/01 Released w/o Limitations [facility]([place] 2-2 SBCT) [facility]([place] OUTPATIENT [id number] JESICA SUAREZ 09/17 Released w/o Limitations [facility]([place] ) [facility](AMH S 01A17 Fabricati on) OUTPATIENT [id number] hiv screeni YVAN Villegas 01/08 Released w/o Limitations [facility](A MHS 01A17 [place] tion) [facility](AMH S 01A17 Fabricati on) OUTPATIENT [id number] HIV test RENITA FERNANDEZ 05/27 Released w/o Limitations [facility](A MHS 01A17 [place] tion) [facility](AMH S 01A17 Fabricati on) OUTPATIENT [id number] oversea s screeni RENITA Feng 06/01 Released w/o Limitations [facility](A MHS 01A17 [place] tion) [facility](ZZZBH R Physical Exam) OUTPATIENT [id number] INPROCE RON OMER 07/21 Released w/o Limitations [facility](ZZZ R Physica l Exam) [facility](1AD 11/07 In BAS) OUTPATIENT [id number] ALLI Chand 07/29 Released w/o Limitations [facility](1AD 2 In BAS) [facility](ZZZ R Physical Exam) OUTPATIENT [id number] PDHA JENNIFER RONAylin COLLAZO 08/30 Released w/o Limitations [facility](ZZZ R Physica l Exam) [facility] Hearing Conservat ion) OUTPATIENT [id number] Pre-Dep loyment Hearing Test JOBY COX 08/30 Released w/o Limitations [facility] Hearing Conserv ation) [facility] Optometry ) OUTPATIENT [id number] eye exam GENO FRENCH 02/22 Released w/o Limitations [facility] Optomet ry) [facility] Primary Care) OUTPATIENT [id number] PHA, online portion complet ed FRANCISCO RIOS 03/14 Released w/o Limitations [facility] Primary Care) [facility] OUTPATIENT [id number] 06/17 Released w/o Limitations Theater Facilit y [facility](ZZZ R Pre/Post Deploymen t) OUTPATIENT [id number] redeplo yment FRANCISCO RIOS 08/13 Released w/o Limitations [facility](ZZZ BHR Pre/Pos t Deploym ent) [facility](1AD 11/07 In BAS) OUTPATIENT [id number] pdhWALTER Castillo 01/15 Released w/o Limitations [facility](1AD 11/07 In BAS) [facility] Du) OUTPATIENT [id number] meta/yue d pod/fit test NASRA UNGER 09/02 Released w/o Limitations [facility]( [facility] Du) [facility] ANGELA Fernandez([facility]) OUTPATIENT [id number] Notes Entered by: MILIND FERRO 04 May 2017 1319 ------- ------- ------- ------- -- PHA KATHERINE DURÁN 05/04 Released w/o Limitations ANGELA Phan([facility]) ANGELA Phan([facility]) OUTPATIENT [id number] Notes Entered by: MILIND FERRO 24 May 2017 1314 ------- ------- ------- ------- -- Hearing follow up KATHERINE DURÁN 05/24 Released w/o Limitations ANGELA Phan([facility]) ANGELA Phan([facility] S01A [facility]) TELE CONSULT [id number] Notes Entered by: MAURICIO DAO 19 Jun 2019 0751 ------- ------- ------- ------- -- Month Medicat ion Review CORRINE DAO 06/19 Other Not Elsewhere Classified ANGELA Phan([facility] S01A [facility]) ANGELA Phan([facility] F02B [facility]) TELE CONSULT [id number] 3 Notes Entered by: MAURICIO DAO 10 Sep 2020 1124 ------- ------- ------- ------- -- Month Medicat ion Review CORRINE DAO 09/10 Other Not Elsewhere Classified ANGELA Phan([facility] F02B [facility]) Procedures Combined list of: 1) Procedures from Department of Veterans Affairs facilities going back up to thelast 18 months, not all VA non-surgical procedures are included; 2) All procedures from the Department of Defense facilities. Procedure Procedure Type Code Date Perfomer Comments Kamlesh e HEPATITIS A VACCINE (HEPA), ADULT DOSAGE, FOR INTRAMUSCULAR USE 08/31/20 05 DoD PHYS/OTH QUALIFIED HEALTH JAVA SCALA DEVELOPER QUALIFIED,EDUCATION, TRAIN,LICENSURE/REGU LATION (WHEN APPLICABLE) EDUC SER RENDERED TO PATS IN A [facility] SETTING (EG,,OBESITY ,OR DIABETIC INSTRUCT) 08/30/[address] [facility] OPHTHALMOLOGICAL SERVICES: MEDICAL EXAMINATION AND EVALUATION WITH INITIATION OF DIAGNOSTIC AND TREATMENT PROGRAM; INTERMEDIATE, NEW PATIENT 08/30/[address] [facility] HEPATITIS A VACCINE (HEPA), ADULT DOSAGE, FOR INTRAMUSCULAR USE 04/06/20 10 DoD PHYS/OTH QUALIFIED HEALTH JAVA SCALA DEVELOPER QUALIFIED,EDUCATION, TRAIN,LICENSURE/REGU LATION (WHEN APPLICABLE) EDUC SER RENDERED TO PATS IN A GRP SETTING (EG,,OBESITY ,OR DIABETIC INSTRUCT) 02/11/[address] [facility] ANALYSIS OF CLINICAL DATA STORED IN COMPUTERS (EG, ECGS, BLOOD PRESSURES, HEMATOLOGIC DATA) 10/23/[address] [facility] SUPP &MATERIAL (EXCEPT SPECTACLE),PROVID,TH E PHYS/OTH QUALIFIED HEALTH JAVA SCALA DEVELOPER OVER &ABOVE THOSE USUALLY INCLD W THE OFFICE VISIT/OTH SER RENDERED (LIST DRUG,TRAYS,SUPP,OR MATERIAL PROVID) 09/17/[address] [facility] ANALYSIS OF CLINICAL DATA STORED IN COMPUTERS (EG, ECGS, BLOOD PRESSURES, HEMATOLOGIC DATA) 10/04/[address] [facility] COLLECTION OF VENOUS BLOOD BY VENIPUNCTURE 05/10/[address] [facility] OXYGEN UPTAKE, GAS ANALYSIS; REST AND EXERCISE, DIRECT, SIMPLE 09/02/[address] [facility] PSYCHIATRIC DIAGNOSTIC EVALUATION 02/11/[address] [facility] MOST RECENT DIASTOLIC BLOOD PRESSURE 80-89 MM HG (HTN, CKD, CAD) (DM) 05/24/[address] [facility] WEIGHT RECORDED (PAG) 05/04/[address] [facility] PSYC TSTNG(PSYCODIAG ASSESS,EMOTITY,INTEL LECTUAL ABILITIES,PERSONALIT Y&PSYCOPATHOLOGY,EG, MMPI&WAIS),W QUALIFIED HEALTH CARE PROFSIONAL INTERP&RPT,ADMINISTE RED THREAD DRESSER,/HR,TECH TME,FCE-2-FCE 02/28/[address] [facility] INDIVIDUAL PSYCHOTHERAPY, INSIGHT ORIENTED, BEHAVIOR MODIFYING AND/OR SUPPORTIVE, IN AN OFFICE OR OUTPATIENT FACILITY, APPROXIMATELY 45 TO 50 MINUTES [id number] WITH THE PATIENT 10/27/[address] [facility] INDIVIDUAL PSYCHOTHERAPY, INSIGHT ORIENTED, BEHAVIOR MODIFYING AND/OR SUPPORTIVE, IN AN OFFICE OR OUTPATIENT FACILITY, APPROXIMATELY 45 TO 50 MINUTES [id number] WITH THE PATIENT 10/13/[address] [facility] INDIVIDUAL PSYCHOTHERAPY, INSIGHT ORIENTED, BEHAVIOR MODIFYING AND/OR SUPPORTIVE, IN AN OFFICE OR OUTPATIENT FACILITY, APPROXIMATELY 20 TO 30 MINUTES [id number] W THE PATIENT; W MED EVAL & MGT SER 10/12/19 12 DoD INDIVIDUAL PSYCHOTHERAPY, INSIGHT ORIENTED, BEHAVIOR MODIFYING AND/OR SUPPORTIVE, IN AN OFFICE OR OUTPATIENT FACILITY, APPROXIMATELY 45 TO 50 MINUTES [id number] WITH THE PATIENT 09/27/[address] [facility] INDIVIDUAL PSYCHOTHERAPY, INSIGHT ORIENTED, BEHAVIOR MODIFYING AND/OR SUPPORTIVE, IN AN OFFICE OR OUTPATIENT FACILITY, APPROXIMATELY 20 TO 30 MINUTES [id number] W THE PATIENT; W MED EVAL & MGT SER 09/19/20 11 DoD INDIVIDUAL PSYCHOTHERAPY, INSIGHT ORIENTED, BEHAVIOR MODIFYING AND/OR SUPPORTIVE, IN AN OFFICE OR OUTPATIENT FACILITY, APPROXIMATELY 45 TO 50 MINUTES [id number] WITH THE PATIENT 09/02/[address] [facility] PSYCHIATRIC DIAGNOSTIC INTERVIEW EXAMINATION 09/02/[address] [facility] PSYCHIATRIC DIAGNOSTIC INTERVIEW EXAMINATION 08/24/[address] [facility] SCREENING TEST OF VISUAL ACUITY, QUANTITATIVE, BILATERAL 03/14/[address] [facility] FITTING OF SPECTACLES, EXCEPT FOR APHAKIA; MONOFOCAL 02/23/[address] [facility] PURE TONE AUDIOMETRY (THRESHOLD); AIR ONLY 08/30/20 10 DoD Most Recent Diastolic BP 80-89 mmHg Most Recent Diastolic BP 80-89 mmHg [id number] 05/24/20 17 KATHERINE DURÁN Most Recent Systolic BP 130 - 139 mmHg Most Recent Systolic BP 130 - 139 mmHg 3075F 05/24/20 17 KATHERINE DURÁN Threshold Audiogram (Pure Tone) Threshold Audiogram (Pure Tone) 59093 05/24/20 17 KATHERINE DURÁN Weight Recorded Weight Recorded 05/04/20 17 KATHERINE DURÁN Most Recent Diastolic BP 80-89 mmHg Most Recent Diastolic BP 80-89 mmHg 3079F 05/04/20 17 KATHERINE DURÁN Most Recent Systolic BP < 130 mmHg Most Recent Systolic BP < 130 mmHg 3074F 05/04/20 17 KATHERINE DURÁN Threshold Audiogram (Pure Tone) Threshold Audiogram (Pure Tone) 49232 05/04/20 17 KATHERINE DURÁN Screening Test Of Visual Acuity, Quantitative, Bilateral Screening Test Of Visual Acuity, Quantitative, Bilateral 23070 05/04/20 17 KATHERINE DURÁN PT A e ment Physical Performance Testing PT Assessment Physical Performance Testing 37939 09/02/20 NASRA EPSTEIN Pulmon Function - O2 Uptake - Gas Analysis Rest, Ind Pulmon Function - O2 [place] [address] 09/02/20 14 TNODINNASRA KELLEY [facility] Pulmonary Function - O2 Uptake - Gas Determination Pulmonary Function - O2 Uptake - Gas Determination 20027 09/02/20 14 TNODINNASRA KELLEY [facility] PT Performance Testing A istive Technology A e [facility] PT Performance Testing Assistive Technology Assessment 11039 09/02/20 14 TNODINNASRA KELLEY [facility] Psychiatric Diagnostic Evaluation Review of Records and Reports Psychiatric Diagnostic Evaluation Review of Records and Reports [id number] 02/28/[address] [facility] Psychologic Testing And Report Administered By Aircraft Avionics Technician Psychologic Testing And Report Administered By Aircraft Avionics Technician [id number] 02/28/[address] [facility] Psychiatric Diagnostic Evaluation Comprehensive Examination Psychiatric Diagnostic Evaluation Comprehensive Examination 00315 02/28/[address] [facility] Clinical Social Work Individual Outpatient Counseling 45 Minutes Clinical Social Work Individual Outpatient Counseling 45 Minutes 15619 10/28/[address] [facility] Clinical Social Work Individual Outpatient Counseling 45 Minutes Clinical Social Work Individual Outpatient Counseling 45 Minutes [id number] 10/14/[address] [facility] Psychotherapy Individual Approx 30 Min W/ Medical Evaluation & Management Psychotherapy Individual Approx 30 Min W/ Medical Evaluation & Management 93378 10/12/[address] [facility] Clinical Social Work Individual Outpatient Counseling 45 Minutes Clinical Social Work Individual Outpatient Counseling 45 Minutes 07602 09/28/20 11 BRIELLE RUIZ Psychotherapy With Medication Management Psychotherapy With Medication Management [id number] 09/19/[address] [facility] Clinical Social Work Individual Outpatient Counseling 45 Minutes Clinical Social Work Individual Outpatient Counseling 45 Minutes 47145 09/08/[address] [facility] Psychiatric Diagnostic Evaluation Comprehensive Examination Psychiatric Diagnostic Evaluation Comprehensive Examination 61430 09/02/[address] [facility] Psychiatric Diagnostic Evaluation Comprehensive Examination Psychiatric Diagnostic Evaluation Comprehensive Examination 73130 08/30/20 11 BRIELLE RUIZ [employer] [facility] Fitting Monofocal Except For Aphakia [facility] Services Fitting Monofocal Except For Aphakia 72531 02/23/20 11 GENO FRENCH Fitted and ordered 350, FOC. [facility] Determination Of Refractive State Determination Of Refractive State 99348 02/23/[address] [facility] Ophthalmological New Patient Start Comprehensive Care Ophthalmological New Patient Start Comprehensive Care 74113 02/23/[address] [facility] Threshold Audiogram (Pure Tone) Threshold Audiogram (Pure Tone) 20591 08/30/[address] [facility] Physician Supervised Group Educational Services 09/17/[address] [facility] Physician Supervised Services Provision Of Special Supplies Physician Supervised Services Provision Of Special Supplies 04974 09/17/20 08 NARENDRA COOLEY Audiometry Group Testing Audiometry Group Testing 15512 09/17/[address] [facility] ENT Services ENT Services 63294 09/17/[address] [facility] Special Physician Services Analysis Of Computerized Data Special Physician Services Analysis Of Computerized Data 72305 09/17/[address] [facility] Threshold Audiogram (Pure Tone) Threshold Audiogram (Pure Tone) 46075 09/17/[address] [facility] Influenza Split Virus Vaccine 0.5mL Dosage Intramuscular 08/31/[address] [place] [address] Immunization Administration By Injection, One Vaccine Immunization Administration By Injection, One Vaccine 32926 08/31/[address] [place] [address] Hepatitis A Vaccine Adult Dosage (Intramuscular Use) Hepatitis A Vaccine Adult Dosage (Intramuscular Use) 70838 08/31/[address] [place] [address] Venipuncture Venipuncture 95887 08/31/[address] [place] [address] Vaccines Viral Measles, Mumps and Rubella, Live Vaccines Viral Measles, Mumps and Rubella, Live 65894 08/31/[address] [place] [address] Td Vaccine Td Vaccine 11713 08/31/[address] [place] [address] Skin Test Anergy Tuberculin Intradermal Skin Test Anergy Tuberculin Intradermal [id number] 08/31/[address] [place] [address] Physician Supervised Injection Subcutaneous Physician Supervised Injection Subcutaneous [id number] 08/31/[address] [place] [address] Meningococcal Polysaccharide Vaccine Serogroup C Meningococcal Polysaccharide Vaccine Serogroup C [id number] 08/31/[address] [place] [address] Vaccines Viral Polio, Inactivated Vaccines Viral Polio, Inactivated [id number] 08/31/[address] [place] [address] [facility] Immunization Administration By Injection, Each Additional Vaccine 08/31/[address] [facility] Spectacles Services Fitting Monofocal Except For Aphakia Spectacles Services Fitting Monofocal Except For Aphakia 65881 08/30/20 05 YEHUDA POLK Determination Of Refractive State Determination Of Refractive State 93513 08/30/20 05 YEHUDA POLK Ophthalmological New Patient Start Intermediate Level Care Ophthalmological New Patient Start Intermediate Level Care [id number] 08/30/[address] [facility] Psychiatric Diagnostic Evaluation Psychiatric Diagnostic Evaluation [id number] [facility] Social History Combined list of available smoking, tobacco, and other social history from [facility] Defense and [facility] facilities. Social History Type Response Date Comment Sour e This section is an empty social history section. [employer]
== END 2024-09-05 11:19 | disposition home or self-care (01) ==
LOC: HO.HOP 09:59
PROVIDERS: PCP Internal Medicine; Visit Provider Clinical Nurse Specialist Psychiatric/Mental Health
DX: F43.10 Post-traumatic stress disorder, unspecified (principal)
CPT/HCPCS: 90833; 99214

== ENCOUNTER → 2024-09-05 09:59 | Outpatient (BNVA) | payer OTHER, SELFPAY | PROVIDERS: PCP Internal Medicine; Visit Provider Clinical Nurse Specialist Psychiatric/Mental Health | DX: F43.10 Post-traumatic stress disorder, unspecified (principal); Z91.85 Personal history of military service | CPT/HCPCS: 99212 ==

== ENCOUNTER 2024-10-07 10:01 | Outpatient (AMB) | payer OTHER, SELFPAY ==
--- NOTE | 2024-10-07 10:10 | A.OFFPSYCH_ITS ---
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 He thinks the prozac helps lower the irritability; o SI no Hi sleep fair. Past Psychiatric History: brief outpt treatment in 2010 but feared judgement from peers Subjective Subjective Subjective Medication Compliance: Yes Side effects from medications: No Review of Systems Medical Review of Systems: unchanged Mental Status Exam Mental Status Exam Patient Appearance: Well Grooomed and Appropriate Patient Orientation: Person, Place, Time and Situation Level of Consciousness: Awake and Appropriate Patient Behavior: Appropriate, Restless and Anxious Mood Description: Anxious and Sad Affect Description: Anxious and Sad Patient Cognition Impaired: No Ability to Follow Directions: Good Speech Pattern: Clear and Appropriate Memory Description: Intact Hallucinations: None Delusions: Not Present Thought Process: Goal Oriented Thought Content: positive for Intact and positive for Goal Oriented Judgement: Fair Assessment and Plan Assessment & Plan (1) PTSD (post-traumatic stress disorder): Status: Acute Code(s): F43.10 - Post-traumatic stress disorder, unspecified Plan increase prozac to 40mg yung trial of trazodone for sleep retrun in 4 weeks Medications: New fluoxetine (Prozac) 40 mg PO DAILY 30 caps 2RF trazodone 50 mg orally Take 1 tab 20 minutes before bed and repeat 1 tab in one hour if still awake in one hour; 60 tabs 1RF Discontinued fluoxetine Discontinued Reason: Doctor's Order 20 mg PO DAILY 30 caps 1RF Counseling and coordination of Care Details: I spent [] minutes reviewing the record, seeing the patient and documenting in the medical record. Counseling provided to the patient/caregiver as outlined below. Addressed patient/caregiver concerns regarding current medication regime including effective adherence. Addressed patient/caregiver concerns regarding diagnosis and prognosis including accuracy of diagnosis, prognosis over time, impact of diagnosis. Addressed patient/caregiver concerns regarding impact of recent stressors. [facility] Medical History (Updated 06/28/24 @ 10:59 by ABDIRAHMAN Miller) Lumbar back pain with radiculopathy affecting right lower extremity Adjustment disorder Surgical History No pertinent past surgical history Family History Father COPD (chronic obstructive pulmonary disease) CHF (congestive heart failure) Mother Hypertension High cholesterol Brother High cholesterol Maternal Grandfather Skin cancer Social History Housing: House Alcohol intake: current Alcohol intake frequency: a few times a week Alcohol type: hard liquor Patient Tobacco Use Status: Current someday Tobacco user Tobacco use type: Cigar (once a month) and Smokeless Tobacco (Chewing Tobacco) e-Cigarette/Vaping Use: Never Used Second Hand Smoke Exposure: Yes service: Yes Current occupational status: employed Current occupational exposures/hazards: No Cognitive needs: No Hearing needs: No Vision needs: No Social History: lives with of 17 years and his 2 children age 11 and 15. He works FT in [employer]; grew up with both parents until they divorce when he was 10 yrs old; has an older brother; was very close to father who was also in ; father from unexpected complication of COPD in 2021 at the age of 66. Substance History: etoh 5 days a week 4 drinks Trauma History: yes age 22- [address] [facility] 2008 and 2010. Coding Level of Care Code Est Pt Level 4 (38004) Diagnoses PTSD (post-traumatic stress disorder) F43.10
--- OUTSIDE RECORDS SUMMARY | 2024-10-07 10:57 | XMS_ITS | Continuity of Care Document ---
Author Name [facility] Organization [facility] Care Team Providers Care Telephone Solicitor Supervisor Name Role Phone [facility] Unavailable Unavailable Problems Combined list of problems [...] Condition DoD ankle sprain left Inactive Condition [facility] Patient Counseling: Inactive Condition No treatment indicated [...] TRIHYDRATE) Drug allergy (disorder) Unknown [facility] Immunizations Combined list of available immunizations from the Department of Defense and Veterans Affairs facilities. Immunization Series Date Given Administered By Site Reaction Lot Number CVX Code Drug Allergist/Immunologist Physician Status Comments Source influenza, injectable, quadrivalent, preservative free 2021 JANES GILLETTE () Not Given influenza , injectabl e, quadrival ent, preservat tino free [facility] Influenza, injectable, quadrivalent, preservative free 0 2021 [...] dose 0 2020 Unknown, Provider TRS 208 [facility] (PFR) complet ed SARS-COV- 2 (COVID-19 ) vaccine, mRNA, spike protein, LNP, preservat tino free, 30 mcg/0.3mL dose DoD COVID-19, mRNA, LNP-S, PF, 30 mcg/0.3 mL dose 2020 JANES GILLETTE () Not Given COVID-19, mRNA, LNP-S, PF, 30 mcg/0.3 mL dose DoD SARS-COV-2 (COVID-19) vaccine, mRNA, spike protein, LNP, preservative free, 30 mcg/0.3mL dose 0 2020 Unknown, Provider TRS 208 [employer] (PFR) complet ed SARS-COV- 2 (COVID-19 ) [...] quadrivalent, preservative free 1 2016 [id number] [employer] (SKB) complet ed Influenza , injectabl e, quadrival ent, preservat tino free DoD influenza, injectable, quadrivalent, contains preservative 1 2015 [id number] 158 [employer] (SEQ) complet ed influenza , injectabl e, quadrival ent, contains preservat tino DoD measles, mumps and rubella virus vaccine 2 2014 [id number] Merck (MSD) complet ed measles, mumps and rubella virus vaccine DoD Influenza, seasonal, injectable 2013 CARMELA ROQUE () Not Given Influenza , seasonal, injectabl e DoD influenza, injectable, quadrivalent, contains preservative 1 2013 [id number] [employer]is [employer] Adriano. (NOV) complet ed influenza , injectabl e, quadrival ent, contains preservat tino DoD Influenza, seasonal, injectable 0 2012 141 (MVX) complet ed Influenza , seasonal, injectabl e DoD Influenza, seasonal, injectable, preservative free 1 2012 [id number] 140 Unknown (UNK) comple t ed Influenza , seasonal, injectabl e, preservat tino free DoD Influenza, seasonal, injectable, preservative free 1 2011 [id number] 140 [employer]ano. (NOV) complet ed Influenza , seasonal, injectabl e, preservat tino free DoD tuberculin skin test; purified protein derivative solution, intradermal 0 2010 TRUDI BRIGGS 96 Transcribed (TRS) complet ed tuberculi n skin test; purified protein derivativ e solution, intraderm al DoD Influenza, seasonal, injectable, preservative free 1 2010 [id number] 140 Unknown (UNK) comple t ed Influenza , seasonal, injectabl e, preservat tino free DoD typhoid Vi capsular polysaccharid e vaccine 1 2010 [id number] 101 Sanofi Pasteur ([facility]) complet ed typhoid Vi capsular polysacch aride vaccine DoD anthrax vaccine 2 2010 [id number] 24 [facility] ([facility]) complet ed anthrax vaccine DoD tetanus toxoid, reduced diphtheria toxoid, and acellular pertu is vaccine, adsorbed 1 2010 [id number] 115 Sanofi Pasteur ([facility]) complet ed tetanus toxoid, reduced diphtheri a toxoid, and acellular pertussis vaccine, adsorbed DoD influenza virus vaccine, unspecified formulation 1 2010 [id number] 88 [facility] ([facility]) complet ed influenza virus vaccine, unspecifi ed formulati on DoD hepatitis A vaccine, adult dosage 4 2009 [id number] 52 [employer] (SKB) complet ed hepatitis A vaccine, adult dosage DoD Novel influenza-H1N 1-09, injectable 1 2008 [id number] 127 [employer]. (NOV) complet ed Novel influenza -[id number], injectabl e DoD anthrax vaccine 1 2008 [id number] 24 [facility] ([facility]) complet ed anthrax vaccine DoD typhoid Vi capsular polysaccharid e vaccine 1 2008 [id number] 101 Sanofi Pasteur ([facility]) complet ed typhoid Vi capsular polysacch aride vaccine DoD influenza virus vaccine, live, attenuated, for intranasal use 1 2007 [id number] 111 Other (OTH) complet ed influenza virus vaccine, live, attenuate d, for intranasa l use DoD influenza virus vaccine, live, attenuated, for intranasal use 1 2006 [id number] 111 [employer] (MED) complet ed influenza virus vaccine, [...] dosage DoD vaccinia (smallpox) vaccine 1 2005 [id number] 75 Rogel[employer] (WAL) complet ed vaccinia (smallpox ) vaccine DoD typhoid Vi capsular polysaccharid e vaccine 1 2005 [id number] 101 Sanofi Pasteur (PMC) complet ed typhoid [...] 2 Lf of diphtheria toxoid) 1 2004 [id number] 09 Sanofi Pasteur (PMC) complet ed tetanus and diphtheri a toxoids, adsorbed, preservat tino free, for adult use (2 Lf of tetanus toxoid and 2 Lf of diphtheri a toxoid) DoD poliovirus vaccine, inactivated 1 2004 [id number] 10 Sanofi Pasteur (PMC) complet ed polioviru s vaccine, inactivat ed DoD influenza virus vaccine, split virus (incl. purified surface antigen)-reti red CODE 1 2004 [id number] 15 [employer]. (MED) complet ed influenza virus vaccine, split virus (incl. purified surface antigen)- retired CODE DoD meningococcal polysaccharid e vaccine (MPSV4) 1 2004 [id number] 32 Sanofi Pasteur (PMC) complet ed meningoco [...] [place] [facility] ) OUTPATIENT [id number] YEHUDA Vides 08/30 Released w/o Limitations Veronica [place]Rece [place] Optomet ry) [facility] [place]) OUTPATIENT [id number] LATANYA PERALTA 08/31 Released w/o Limitations Ver[place](Rece [place]tion Station ) [facility](1st C.R.O.W.S .) OUTPATIENT [id number] IMAN Miranda 01/24 Released w/o Limitations [facility](1 st C.R.O.W .S.) [facility]([place] 2-2 SBCT) OUTPATIENT [id number] left ankle pain TRUDI SAGASTUME 08/01 Released w/o Limitations [facility]([place] 2-[place] SBCT) [facility]([place] OUTPATIENT [id number] JESICA SUAREZ 09/17 Released w/o Limitations [facility]([place] ) [facility](AMH S 01A17 Fabricati on) OUTPATIENT [id number] hiv screeni YVAN Villegas 01/08 Released w/o Limitations [facility](A MHS 01A17 [place] [facility](AMH S 01A17 Fabricati on) OUTPATIENT [id number] HIV test RENITA FERNANDEZ 05/27 Released w/o Limitations [facility](A MHS 01A17 [place] [facility](AMH S 01A17 Fabricati on) OUTPATIENT [id number] oversea s screeni RENITA Feng 06/01 Released w/o Limitations [facility](A MHS 01A17 [place]) [facility](ZZZBH R Physical Exam) OUTPATIENT [id number] INPROCE RON OMER 07/21 Released w/o Limitations [facility](ZZZ R Physica l Exam) [facility](1AD 11/07 In BAS) OUTPATIENT [id number] ALLI Chand 07/29 Released w/o Limitations [facility](1AD 2 In BAS) [facility](ZZZ R Physical Exam) OUTPATIENT [id number] PDHA JENNIFER RONAylin COLLAZO 08/30 Released w/o Limitations [facility](ZZZ R Physica l Exam) [facility] Hearing Conservat ion) OUTPATIENT [id number] Pre-Dep loyment Hearing Test JOBY COX 08/30 Released w/o Limitations [facility] Hearing Conserv ation) [facility] Optometry ) OUTPATIENT [id number] eye exam GENO FRENCH 02/22 Released w/o Limitations [facility] Optomet ry) [facility] Primary Care) OUTPATIENT [id number] PHA, online portion complet ed FRANCISCO RIOS 03/14 Released w/o Limitations [facility] Primary Care) Theater Facility OUTPATIENT [id number] 06/17 Released w/o Limitations Theater Facilit y [facility](ZZZ R Pre/Post Deploymen t) OUTPATIENT [id number] redeplo yment FRANCISCO RIOS 08/13 Released w/o Limitations [facility](ZZZ BHR Pre/Pos t Deploym ent) [facility](1AD 11/07 In BAS) OUTPATIENT [id number] pdhWALTER Castillo 01/15 Released w/o Limitations [facility](1AD 11/07 In BAS) [facility]) OUTPATIENT [id number] meta/yue d pod/fit test NASRA UNGER 09/02 Released w/o Limitations [facility]( [facility]) [facility] ANGELA Fernandez([facility]) OUTPATIENT [id number] Notes Entered by: MILIND FERRO 04 May 2017 1319 ------- ------- ------- ------- -- PHA KATHERINE DURÁN 05/04 Released w/o Limitations ANGELA Phan([facility]) ANGELA Phan([facility]) OUTPATIENT [id number] Notes Entered by: MILIND FERRO 24 May 2017 1314 ------- ------- ------- ------- -- Hearing follow up KATHERINE DURÁN 05/24 Released w/o Limitations ANGELA Phan([facility]) ANGELA Phan([facility] S01A [facility]) TELE CONSULT [id number] 2 Notes Entered by: MAURICIO DAO 19 Jun 2019 0751 ------- ------- ------- ------- -- Month Medicat ion Review CORRINE DAO 06/19 Other Not Elsewhere Classified ANGELA Phan([facility] S01A [facility]) ANGELA Phan([facility] F02B [facility]) TELE CONSULT [id number] 3 Notes Entered by: MAURICIO DAO 10 Sep 2020 1124 ------- ------- ------- ------- -- Month Medicat ion Review CORRINE DAO 09/10 Other Not Elsewhere Classified ANGELA Phan([facility] F02B [facility]) Procedures Combined list of: 1) Procedures from Department of Veterans Affairs facilities going back up to thelast 18 months, not all VA non-surgical procedures are included; 2) All procedures from the Department of Defense facilities. Procedure Procedure Type Code Date Perfomer Comments Kamlesh e HEPATITIS A VACCINE (HEPA), ADULT DOSAGE, FOR INTRAMUSCULAR USE 08/31/20 05 DoD PHYS/OTH QUALIFIED HEALTH TRACTOR DRIVER TEAMSTER QUALIFIED,EDUCATION, TRAIN,LICENSURE/REGU LATION (WHEN APPLICABLE) EDUC SER RENDERED TO PATS IN A WHITE HOSPITAL SETTING (EG,,OBESITY ,OR DIABETIC INSTRUCT) 08/30/20 05 [facility] OPHTHALMOLOGICAL SERVICES: MEDICAL EXAMINATION AND EVALUATION WITH INITIATION OF DIAGNOSTIC AND TREATMENT PROGRAM; INTERMEDIATE, NEW PATIENT 08/30/20 05 [facility] PSYCHIATRIC DIAGNOSTIC EVALUATION 02/11/20 22 [facility] MOST RECENT DIASTOLIC BLOOD PRESSURE 80-89 MM HG (HTN, CKD, CAD) (DM) 05/24/20 17 [facility] WEIGHT RECORDED (PAG) 05/04/20 17 [facility] HEPATITIS A VACCINE (HEPA), ADULT DOSAGE, FOR INTRAMUSCULAR USE 04/06/20 10 [facility] PHYS/OTH QUALIFIED HEALTH TRACTOR DRIVER TEAMSTER QUALIFIED,EDUCATION, TRAIN,LICENSURE/REGU LATION (WHEN APPLICABLE) EDUC SER RENDERED TO PATS IN A GRP SETTING (EG,,OBESITY ,OR DIABETIC INSTRUCT) 02/11/20 09 [facility] ANALYSIS OF CLINICAL DATA STORED IN COMPUTERS (EG, ECGS, BLOOD PRESSURES, HEMATOLOGIC DATA) 10/23/19 09 [facility] SUPP &MATERIAL (EXCEPT SPECTACLE),PROVID,TH E PHYS/OTH QUALIFIED HEALTH TRACTOR DRIVER TEAMSTER OVER &ABOVE THOSE USUALLY INCLD W THE OFFICE VISIT/OTH SER RENDERED (LIST DRUG,TRAYS,SUPP,OR MATERIAL PROVID) 09/17/20 08 [facility] ANALYSIS OF CLINICAL DATA STORED IN COMPUTERS (EG, ECGS, BLOOD PRESSURES, HEMATOLOGIC DATA) 10/04/19 08 [facility] COLLECTION OF VENOUS BLOOD BY VENIPUNCTURE 05/10/20 07 [facility] OXYGEN UPTAKE, GAS ANALYSIS; REST AND EXERCISE, DIRECT, SIMPLE 09/02/20 14 [facility] PSYC TSTNG(PSYCODIAG ASSESS,EMOTITY,INTEL LECTUAL ABILITIES,PERSONALIT Y&PSYCOPATHOLOGY,EG, MMPI&WAIS),W QUALIFIED HEALTH CARE PROFSIONAL INTERP&RPT,ADMINISTE RED INFUSION PHARMACIST,/HR,TECH TME,FCE-2-FCE 02/28/20 12 [facility] INDIVIDUAL PSYCHOTHERAPY, INSIGHT ORIENTED, BEHAVIOR MODIFYING AND/OR SUPPORTIVE, IN AN OFFICE OR OUTPATIENT FACILITY, APPROXIMATELY 45 TO 50 MINUTES SPHX-NM-JSPD WITH THE PATIENT 10/27/19 12 [facility] INDIVIDUAL PSYCHOTHERAPY, INSIGHT ORIENTED, BEHAVIOR MODIFYING AND/OR SUPPORTIVE, IN AN OFFICE OR OUTPATIENT FACILITY, APPROXIMATELY 45 TO 50 MINUTES GQSA-OG-DRSS WITH THE PATIENT 10/13/19 12 [facility] INDIVIDUAL PSYCHOTHERAPY, INSIGHT ORIENTED, BEHAVIOR MODIFYING AND/OR SUPPORTIVE, IN AN OFFICE OR OUTPATIENT FACILITY, APPROXIMATELY 20 TO 30 MINUTES CLBV-NT-QUZR W THE PATIENT; W MED EVAL & MGT SER 10/12/19 12 DoD INDIVIDUAL PSYCHOTHERAPY, INSIGHT ORIENTED, BEHAVIOR MODIFYING AND/OR SUPPORTIVE, IN AN OFFICE OR OUTPATIENT FACILITY, APPROXIMATELY 45 TO 50 MINUTES IZTB-ZW-ALEI WITH THE PATIENT 09/27/20 11 [facility] INDIVIDUAL PSYCHOTHERAPY, INSIGHT ORIENTED, BEHAVIOR MODIFYING AND/OR SUPPORTIVE, IN AN OFFICE OR OUTPATIENT FACILITY, APPROXIMATELY 20 TO 30 MINUTES XFZP-[id number]-[id number] W THE PATIENT; W MED EVAL & MGT SER 09/19/20 11 DoD INDIVIDUAL PSYCHOTHERAPY, INSIGHT ORIENTED, BEHAVIOR MODIFYING AND/OR SUPPORTIVE, IN AN OFFICE OR OUTPATIENT FACILITY, APPROXIMATELY 45 TO 50 MINUTES QPCI-VO-UYUS WITH THE PATIENT 09/02/20 11 [facility] PSYCHIATRIC DIAGNOSTIC INTERVIEW EXAMINATION 09/02/20 11 [facility] PSYCHIATRIC DIAGNOSTIC INTERVIEW EXAMINATION 08/24/20 11 [facility] SCREENING TEST OF VISUAL ACUITY, QUANTITATIVE, BILATERAL 03/14/20 11 [facility] FITTING OF SPECTACLES, EXCEPT FOR APHAKIA; MONOFOCAL 02/23/20 11 [facility] PURE TONE AUDIOMETRY (THRESHOLD); AIR ONLY 08/30/20 10 DoD Most Recent Diastolic BP 80-89 mmHg Most Recent Diastolic BP 80-89 mmHg 3079F 05/24/20 17 KATHERINE DURÁN Most Recent Systolic BP 130 - 139 mmHg Most Recent Systolic BP 130 - 139 mmHg 3075F 05/24/20 17 KATHERINE DURÁN Threshold Audiogram (Pure Tone) Threshold Audiogram (Pure Tone) 29789 05/24/20 17 KATHERINE DURÁN Weight Recorded Weight Recorded 05/04/20 17 KATHERINE DURÁN Most Recent Diastolic BP 80-89 mmHg Most Recent Diastolic BP 80-89 mmHg 3079F 05/04/20 17 KATHERINE DURÁN Most Recent Systolic BP < 130 mmHg Most Recent Systolic BP < 130 mmHg 3074F 05/04/20 17 KATHERINE DURÁN Threshold Audiogram (Pure Tone) Threshold Audiogram (Pure Tone) 17130 05/04/20 17 KATHERINE DURÁN Screening Test Of Visual Acuity, Quantitative, Bilateral Screening Test Of Visual Acuity, Quantitative, Bilateral 37141 05/04/20 17 KATHERINE DURÁN PT A e ment Physical Performance Testing PT Assessment Physical Performance Testing 48002 09/02/20 NASRA EPSTEIN Pulmon Function - O2 Uptake - Gas Analysis Rest, Ind Pulmon Function - O2 [place] [address] 09/02/20 14 HIODINNASRA KELLEY [facility] Pulmonary Function - O2 Uptake - Gas Determination Pulmonary Function - O2 Uptake - Gas Determination 43758 09/02/20 14 HIODINNASRA KELLEY [facility] PT Performance Testing A istive Technology A e [facility] PT Performance Testing Assistive Technology Assessment 24194 09/02/20 14 HIODINNASRA KELLEY [facility] Psychiatric Diagnostic Evaluation Review of Records and Reports Psychiatric Diagnostic Evaluation Review of Records and Reports 02228 02/28/20 12 ANTONIA SUNSHINE [facility] Psychologic Testing And Report Administered By Nurse Informatics Educator Psychologic Testing And Report Administered By Nurse Informatics Educator 88228 02/28/20 12 ANTONIA SUNSHINE [facility] Psychiatric Diagnostic Evaluation Comprehensive Examination Psychiatric Diagnostic Evaluation Comprehensive Examination 74517 02/28/20 12 ANTONIA SUNSHINE [facility] Clinical Social Work Individual Outpatient Counseling 45 Minutes Clinical Social Work Individual Outpatient Counseling 45 Minutes 18330 10/28/19 12 BRIELLE RUIZ [facility] Clinical Social Work Individual Outpatient Counseling 45 Minutes Clinical Social Work Individual Outpatient Counseling 45 Minutes 92635 10/14/19 12 BRIELLE RUIZ [facility] Psychotherapy Individual Approx 30 Min W/ Medical Evaluation & Management Psychotherapy Individual Approx 30 Min W/ Medical Evaluation & Management 07934 10/12/19 12 DILEEP HANSON [facility] Clinical Social Work Individual Outpatient Counseling 45 Minutes Clinical Social Work Individual Outpatient Counseling 45 Minutes 18088 09/28/20 11 BRIELLE RUIZ Psychotherapy With Medication Management Psychotherapy With Medication Management 82969 09/19/20 11 DILEEP HANSON [facility] Clinical Social Work Individual Outpatient Counseling 45 Minutes Clinical Social Work Individual Outpatient Counseling 45 Minutes 70599 09/08/20 11 BRIELLE RUIZ [facility] Psychiatric Diagnostic Evaluation Comprehensive Examination Psychiatric Diagnostic Evaluation Comprehensive Examination 25493 09/02/20 11 DILEEP HANSON [facility] Psychiatric Diagnostic Evaluation Comprehensive Examination Psychiatric Diagnostic Evaluation Comprehensive Examination 10240 08/30/20 11 BRIELLE RUIZ [facility] [facility] Fitting Monofocal Except For Aphakia [facility] Fitting Monofocal Except For Aphakia 50086 02/23/20 11 GENO FRENCH Fitted and ordered 350, FOC. [facility] Determination Of Refractive State Determination Of Refractive State 74109 02/23/20 11 GENO FRENCH [facility] Ophthalmological New Patient Start Comprehensive Care Ophthalmological New Patient Start Comprehensive Care 01723 02/23/20 11 GENO FRENCH [facility] Threshold Audiogram (Pure Tone) Threshold Audiogram (Pure Tone) 58002 08/30/20 10 JOBY COX [facility] Physician Supervised Group Educational Services 09/17/20 08 NARENDRA COOLEY [facility] Physician Supervised Services Provision Of Special Supplies Physician Supervised Services Provision Of Special Supplies 00651 09/17/20 08 NARENDRA COOLEY Audiometry Group Testing Audiometry Group Testing 68956 09/17/20 08 NARENDRA COOLEY [facility] ENT Services ENT Services 60309 09/17/20 08 NARENDRA COOLEY [facility] Special Physician Services Analysis Of Computerized Data Special Physician Services Analysis Of Computerized Data 93921 09/17/20 08 NARENDRA COOLEY [facility] Threshold Audiogram (Pure Tone) Threshold Audiogram (Pure Tone) 30239 09/17/20 08 NARENDRA COOLEY [facility] Influenza Split Virus Vaccine 0.5mL Dosage Intramuscular 08/31/[address] [place] [address] Immunization Administration By Injection, One Vaccine Immunization Administration By Injection, One Vaccine 49223 08/31/[address] [place] [address] Hepatitis A Vaccine Adult Dosage (Intramuscular Use) Hepatitis A Vaccine Adult Dosage (Intramuscular Use) 09737 08/31/[address] [place] [address] Venipuncture Venipuncture 49873 08/31/[address] [place] [address] Vaccines Viral Measles, Mumps and Rubella, Live Vaccines Viral Measles, Mumps and Rubella, Live 28829 08/31/[address] [place] [address] Td Vaccine Td Vaccine 92283 08/31/[address] [place] [address] Skin Test Anergy Tuberculin Intradermal Skin Test Anergy Tuberculin Intradermal 53130 08/31/[address] [place] [address] Physician Supervised Injection Subcutaneous Physician Supervised Injection Subcutaneous 95094 08/31/[address] [place] [address] Meningococcal Polysaccharide Vaccine Serogroup C Meningococcal Polysaccharide Vaccine Serogroup C 89597 08/31/[address] [place] [address] Vaccines Viral Polio, Inactivated Vaccines Viral Polio, Inactivated 81403 08/31/[address] [place] [address] [facility] Immunization Administration By Injection, Each Additional Vaccine 08/31/20 05 LATANYA RUIZ [facility] [employer] [facility] Fitting Monofocal Except For Aphakia [facility] [facility] Fitting Monofocal Except For Aphakia 40737 08/30/20 05 YEHUDA POLK Determination Of Refractive State Determination Of Refractive State 05633 08/30/20 05 YEHUDA POLK Ophthalmological New Patient Start Intermediate Level Care Ophthalmological New Patient Start Intermediate Level Care 18222 08/30/20 05 YEHUDA POLK [facility] Psychiatric Diagnostic Evaluation Psychiatric Diagnostic Evaluation 92867 ERNESTO MOYER [facility] Social History Combined list of available smoking, tobacco, and other social history from Department of Defense and Veterans Affairs facilities. Social History Type Response Date Comment Sour e This section is an empty social history section. [facility]
== END 2024-10-07 10:54 | disposition home or self-care (01) ==
LOC: HO.HOP 10:01
PROVIDERS: PCP Internal Medicine; Visit Provider Clinical Nurse Specialist Psychiatric/Mental Health
DX: F43.10 Post-traumatic stress disorder, unspecified (principal)
CPT/HCPCS: 99214

== ENCOUNTER → 2024-10-07 10:01 | Outpatient (BNVA) | payer OTHER, SELFPAY | PROVIDERS: PCP Internal Medicine; Visit Provider Clinical Nurse Specialist Psychiatric/Mental Health | DX: F43.10 Post-traumatic stress disorder, unspecified (principal) | CPT/HCPCS: 99212 ==

== ENCOUNTER 2024-11-05 09:23 | Outpatient (AMB) | payer OTHER, SELFPAY ==
--- NOTE | 2024-11-05 08:57 | A.OFFPSYCH_ITS ---
Intake Intake Visit Reasons: f/u consultation Cooker Loader Required: No Allergies amoxicillin Allergy (Mild, Verified 12/03/24 11:45) Hives Medication List - Last Reconciled 11/05/24 by Annette Westbrook APRN fluoxetine (Prozac) 40 mg PO DAILY gabapentin 100 mg PO BEDTIME trazodone 50 mg orally Take 1 tab 20 minutes before bed and repeat 1 tab in one hour if still awake in one hour; HPI- Psychiatric Chief Complaint: f/u consultation HPI Narrative: pt tolerating medication. no side effects; he reports improved mood, less anxious, less sad and irritable. no SI or HI. Past Psychiatric History: brief outpt treatment in 2010 but feared judgement from peers Subjective Subjective Subjective Medication Compliance: Yes Side effects from medications: No Review of Systems Medical Review of Systems: unchanged Mental Status Exam Mental Status Exam Patient Appearance: Well Grooomed and Appropriate Patient Orientation: Person, Place, Time and Situation Level of Consciousness: Awake, Appropriate and Alert Patient Behavior: Appropriate, Cooperative and Good Eye Contact Mood Description: Appropriate and Anxious Affect Description: Appropriate and Anxious Patient Cognition Impaired: No Ability to Follow Directions: Good Speech Pattern: Clear and Appropriate Memory Description: Intact Hallucinations: None Delusions: Not Present Thought Process: Intact and Goal Oriented Thought Content: positive for Intact and positive for Goal Oriented Judgement: Fair Assessment and Plan Assessment & Plan (1) PTSD (post-traumatic stress disorder): Status: Acute Code(s): F43.10 - Post-traumatic stress disorder, unspecified Plan continue prozac 40mg daily consider psychotherapy in future followup with PCP Medications: Refilled fluoxetine (Prozac) 40 mg PO DAILY 30 caps 2RF Discontinued gabapentin Discontinued Reason: No Longer Medically Relevant 100 mg PO BEDTIME 30 caps 1RF trazodone Discontinued Reason: Patient no longer taking 50 mg orally Take 1 tab 20 minutes before bed and repeat 1 tab in one hour if still awake in one hour; 60 tabs 1RF Counseling and coordination of Care Pt. Self Management counseling: Mindfulness, Mod caffeine/ETOH intake, Sleep hygiene and General coping skills Diagnosis and Prognosis Counseling: Accuracy of diagnosis, Prognosis over time, Impact of diagnosis on life functions, Impact of family relationship, Problematic behaviors secondary to diagnosis and Adequacy of current interventions Details: I spent 40 minutes reviewing the record, seeing the patient and documenting in the medical record. Counseling provided to the patient/caregiver as outlined below. Addressed patient/caregiver concerns regarding current medication regime including effective adherence. Addressed patient/caregiver concerns regarding diagnosis and prognosis including accuracy of diagnosis, prognosis over time, impact of diagnosis. Addressed patient/caregiver concerns regarding impact of recent stressors. [facility] Medical History Lumbar back pain with radiculopathy affecting right lower extremity Adjustment disorder Surgical History No pertinent past surgical history Family History Father COPD (chronic obstructive pulmonary disease) CHF (congestive heart failure) Mother Hypertension High cholesterol Brother High cholesterol Maternal Grandfather Skin cancer Social History Housing: House Alcohol intake: current Alcohol intake frequency: 0-2 drinks per day Alcohol type: hard liquor Patient Tobacco Use Status: Current someday Tobacco user Tobacco use type: Cigar (once a month) and Smokeless Tobacco (Chewing Tobacco) e-Cigarette/Vaping Use: Never Used Second Hand Smoke Exposure: Yes service: Yes Current occupational status: employed Current occupational exposures/hazards: No Cognitive needs: No Hearing needs: No Vision needs: No Social History: lives with of 17 years and his 2 children age 11 and 15. He works FT in [employer]; grew up with both parents until they divorce when he was 10 yrs old; has an older brother; was very close to father who was also in ; father from unexpected complication of COPD in 2021 at the age of 66. Substance History: etoh 5 days a week 4 drinks Trauma History: yes age 22- 2 tours in [facility] 2008 and 2010. Coding Level of Care Code Est Pt Level 4 (79221) Diagnoses PTSD (post-traumatic stress disorder) F43.10
--- OUTSIDE RECORDS SUMMARY | 2024-11-05 09:54 | XMS_ITS | Continuity of Care Document ---
Author Name [facility] Organization [facility] Care Team Providers Care Manager Dish Name Role Phone [facility] Unavailable Unavailable Problems Combined list of problems [...] DoD ankle sprain left Inactive Condition [facility] Patient Counseling: Inactive Condition No treatment indicated [...] TRIHYDRATE) Drug allergy (disorder) Unknown [facility] Immun[facility] Combined list of available immunizations from the Department of Defense and Veterans Affairs facilities. Immunization Series Date Given Administered By Site Reaction Lot Number CVX Code Drug Rn First Assistant Status Comments Source influenza, injectable, quadrivalent, preservative free 2021 JANES GILLETTE () Not Given influenza , injectabl e, quadrival ent, preservat tino free [facility] Influenza, injectable, quadrivalent, preservative free 0 2021 [...] dose 0 2020 Unknown, Provider TRS 208 [facility], [facility] (PFR) complet ed SARS-COV- 2 (COVID-19 ) vaccine, mRNA, spike protein, LNP, preservat tino free, 30 mcg/0.3mL dose DoD COVID-19, mRNA, LNP-S, PF, 30 mcg/0.3 mL dose 2020 JANES GILLETTE () Not Given COVID-19, mRNA, LNP-S, PF, 30 mcg/0.3 mL dose DoD SARS-COV-2 (COVID-19) vaccine, mRNA, spike protein, LNP, preservative free, 30 mcg/0.3mL dose 0 2020 Unknown, Provider TRS 208 [employer] (PFR) complet ed SARS-COV- 2 (COVID-19 [...] quadrivalent, preservative free 1 2016 [id number] 150 [place] (SKB) complet ed Influenza , injectabl e, quadrival ent, preservat tino free DoD influenza, injectable, quadrivalent, contains preservative 1 2015 [id number] 158 [employer] (SEQ) complet ed influenza , injectabl e, quadrival ent, contains preservat tino DoD measles, mumps and rubella virus vaccine 2 2014 [id number] Merck (MSD) complet ed measles, mumps and rubella virus vaccine DoD Influenza, seasonal, injectable 2013 CARMELA ROQUE () Not Given Influenza , seasonal, injectabl e DoD influenza, injectable, quadrivalent, contains preservative 1 2013 [id number] 158 Nov[employer]is [employer]un[employer] Adriano. (NOV) complet ed influenza , injectabl e, quadrival ent, contains preservat tino DoD Influenza, seasonal, injectable 0 2012 141 (MVX) complet ed Influenza , seasonal, injectabl e DoD Influenza, seasonal, injectable, preservative free 1 2012 [id number] 140 Unknown (UNK) comple t ed Influenza , seasonal, injectabl e, preservat tino free DoD Influenza, seasonal, injectable, preservative free 1 2011 [id number] 140 Nov[employer]is [employer]un[employer] Adriano. (NOV) complet ed Influenza , seasonal, injectabl e, preservat tino free DoD tuberculin skin test; purified protein derivative solution, intradermal 0 2010 TRUDI BRIGGS 96 Transcribed (TRS) complet ed tuberculi n skin test; purified protein derivativ e solution, intraderm al DoD Influenza, seasonal, injectable, preservative free 1 2010 [id number] 140 Unknown (UNK) comple t ed Influenza , seasonal, injectabl e, preservat tino free DoD typhoid Vi capsular polysaccharid e vaccine 1 2010 [id number] 101 Sanofi Pasteur ([facility]) complet ed typhoid Vi capsular polysacch aride vaccine DoD anthrax vaccine [id number] [facility] ([facility]) complet ed anthrax vaccine DoD tetanus toxoid, reduced diphtheria toxoid, and acellular pertu is vaccine, adsorbed 1 2010 [id number] 115 Sanofi Pasteur ([facility]) complet ed tetanus toxoid, reduced diphtheri a toxoid, and acellular pertussis vaccine, adsorbed DoD influenza virus vaccine, unspecified formulation [id number] [facility] ([facility]) complet ed influenza virus vaccine, unspecifi ed formulati on DoD hepatitis A vaccine, adult dosage 4 2009 [id number] 52 [employer] (SKB) complet ed hepatitis A vaccine, adult dosage DoD Novel influenza-H1N 1-09, injectable 1 2008 [id number] 127 [employer]. (NOV) complet ed Novel influenza -P8D3-44, injectabl e DoD anthrax vaccine [id number] [facility] ([facility]) complet ed anthrax vaccine DoD typhoid Vi capsular polysaccharid e vaccine 1 2008 [id number] 101 Sanofi Pasteur ([facility]) complet ed typhoid Vi capsular polysacch aride vaccine DoD influenza virus vaccine, live, attenuated, for intranasal use 1 2007 [id number] 111 Other (OTH) complet ed influenza virus vaccine, live, attenuate d, for intranasa l use DoD influenza virus vaccine, live, attenuated, for intranasal use 1 2006 [id number] 111 [employer] (MED) complet ed influenza virus vaccine, [...] dosage DoD vaccinia (smallpox) vaccine 1 2005 [id number] 75 [employer] (WAL) complet ed vaccinia (smallpox ) vaccine DoD typhoid Vi capsular polysaccharid e vaccine 1 2005 [id number] 101 Sanofi Pasteur ([facility]) complet ed typhoid [...] 2 Lf of diphtheria toxoid) 1 2004 [id number] 09 Sanofi Pasteur (PMC) complet ed tetanus and diphtheri a toxoids, adsorbed, preservat tino free, for adult use (2 Lf of tetanus toxoid and 2 Lf of diphtheri a toxoid) DoD poliovirus vaccine, inactivated 1 2004 [id number] 10 Sanofi Pasteur (PMC) complet ed polioviru s vaccine, inactivat ed DoD influenza virus vaccine, split virus (incl. purified surface antigen)-reti red CODE 1 2004 [id number] 15 [employer]. (MED) complet ed influenza virus vaccine, split virus (incl. purified surface antigen)- retired CODE DoD meningococcal polysaccharid e vaccine (MPSV4) 1 2004 [id number] 32 Sanofi Pasteur ([facility]MC) complet ed meningoco [...] [place] [facility] ) OUTPATIENT [id number] YEHUDA Vides 08/30 Released w/o Limitations Veronica [place] Optomet [facility]) [place] OUTPATIENT [id number] LATANYA PERALTA 08/31 Released w/o Limitations Ver[place](Rece [place] Station ) [facility](1st C.R.O.W.S .) OUTPATIENT [id number] IMAN Miranda 01/24 Released w/o Limitations [facility](1 st C.R.O.W .S.) [facility]([place] 2-2 SBCT) OUTPATIENT [id number] left ankle pain TRUDI SAGASTUME 08/01 Released w/o Limitations [facility]([place] 2-2 SBCT) [facility]([place] Hearing Program) OUTPATIENT [id number] JESICA SUAREZ 09/17 Released w/o Limitations [facility]([place] [facility] ) [facility](AMH S 01A17 Fabricati on) OUTPATIENT [id number] hiv screeni YVAN Villegas 01/08 Released w/o Limitations [facility](A MHS 01A17 [place] t[place]) [facility](AMH S 01A17 Fabricati on) OUTPATIENT [id number] HIV test RENITA FERNANDEZ 05/27 Released w/o Limitations [facility](A MHS 01A17 [place]) [facility](AMH S 01A17 Fabricati on) OUTPATIENT [id number] oversea s screeni RENITA Feng 06/01 Released w/o Limitations [facility](A MHS 01A17 [place]) [facility](ZZZBH R Physical Exam) OUTPATIENT [id number] INPROCE RON OMER 07/21 Released w/o Limitations [facility](ZZZ R Physica l Exam) [facility](1AD 11/07 In BAS) OUTPATIENT [id number] ALLI Chand 07/29 Released w/o Limitations [facility](1AD 2 In BAS) [facility](ZZZ R Physical Exam) OUTPATIENT [id number] PDHA JENNIFER RONAylin COLLAZO 08/30 Released w/o Limitations [facility](ZZZ R Physica l Exam) [facility] Hearing Conservat ion) OUTPATIENT [id number] Pre-Dep loyment Hearing Test JOBY COX 08/30 Released w/o Limitations [facility] Hearing Conserv ation) [facility] Optometry ) OUTPATIENT [id number] eye exam GENO FRENCH 02/22 Released w/o Limitations [facility] Optomet ry) [facility] Primary Care) OUTPATIENT [id number] PHA, online portion complet ed FRANCISCO RIOS 03/14 Released w/o Limitations [facility] Primary Care) Theater Facility OUTPATIENT [id number] 06/17 Released w/o Limitations Theater Facilit y [facility](ZZZ R Pre/Post Deploymen t) OUTPATIENT [id number] redeplo yment FRANCISCO RIOS 08/13 Released w/o Limitations [facility](ZZZ BHR Pre/Pos t Deploym ent) [facility](1AD 11/07 In BAS) OUTPATIENT [id number] pdhWALTER Castillo 01/15 Released w/o Limitations [facility](1AD 11/07 In BAS) [facility]) OUTPATIENT [id number] meta/yue d pod/fit test NASRA UNGER 09/02 Released w/o Limitations [facility]( [facility] Du) Critical access hospital ANGELA Fernandez([facility]) OUTPATIENT [id number] Notes Entered by: MILIND FERRO 04 May 2017 1319 ------- ------- ------- ------- -- PHA KATHERINE DURÁN 05/04 Released w/o Limitations ANGELA Phan([facility]) ANGELA Phan([facility]) OUTPATIENT [id number] Notes Entered by: MILIND FERRO 24 May 2017 1314 ------- ------- ------- ------- -- Hearing follow up KATHERINE DURÁN 05/24 Released w/o Limitations Bette Cornejo, ANGELA([facility]) ANGELA Phan([facility] S[facility]) TELE CONSULT [id number] 2 Notes Entered by: MAURICIO DAO 19 Jun 2019 0751 ------- ------- ------- ------- -- Month Medicat ion Review CORRINE DAO 06/19 Other Not Elsewhere Classified ANGELA Phan([facility]) ANGELA Phan([facility] F[facility]) TELE CONSULT [id number] 3 Notes Entered by: MAURICIO DAO 10 Sep 2020 1124 ------- ------- ------- ------- -- Month Medicat ion Review CORRINE DAO 09/10 Other Not Elsewhere Classified Elma ANGELA Carl([facility] F[facility]) Procedures Combined list of: 1) Procedures from Department of Veterans Affairs facilities going back up to thelast 18 months, not all VA non-surgical procedures are included; 2) All procedures from the Department of Defense facilities. Procedure Procedure Type Code Date Perfomer Comments Sour e Most Recent Diastolic BP 80-89 mmHg Most Recent Diastolic BP 80-89 mmHg 3079F 05/24/20 17 KATHERINE DURÁN Most Recent Systolic BP 130 - 139 mmHg Most Recent Systolic BP 130 - 139 mmHg 3075F 05/24/20 17 KATHERINE DURÁN Threshold Audiogram (Pure Tone) Threshold Audiogram (Pure Tone) 64279 05/24/20 17 KATHERINE DURÁN Weight Recorded Weight Recorded 05/04/20 17 KATHERINE DURÁN Most Recent Diastolic BP 80-89 mmHg Most Recent Diastolic BP 80-89 mmHg 3079F 05/04/20 17 KATHERINE DURÁN Most Recent Systolic BP < 130 mmHg Most Recent Systolic BP < 130 mmHg 3074F 05/04/20 17 KATHERINE DURÁN Threshold Audiogram (Pure Tone) Threshold Audiogram (Pure Tone) 81056 05/04/20 17 KATHERINE DURÁN Screening Test Of Visual Acuity, Quantitative, Bilateral Screening Test Of Visual Acuity, Quantitative, Bilateral 47930 05/04/20 17 KATHERINE DURÁN PT A e ment Physical Performance Testing PT Assessment Physical Performance Testing 55949 09/02/20 [facility] Pulmon Function - O2 Uptake - Gas Analysis [place], [place] Pulmon Function - [place] [address] 09/02/20 14 [facility] Pulmonary Function - O2 Uptake - Gas Determination Pulmonary Function - O2 Uptake - Gas Determination 86645 09/02/20 14 [facility] PT Performance Testing A istive Technology A e ment PT Performance Testing Assistive Technology Assessment 05735 09/02/20 14 [facility] Psychiatric Diagnostic Evaluation Review of Records and Reports Psychiatric Diagnostic Evaluation Review of Records and Reports 03823 02/28/[address] [facility] Psychologic Testing And Report Administered By Rag Room Supervisor Psychologic Testing And Report Administered By Rag Room Supervisor [id number] 02/28/[address] [facility] Psychiatric Diagnostic Evaluation Comprehensive Examination Psychiatric Diagnostic Evaluation Comprehensive Examination 30072 02/28/[address] [facility] Clinical Social Work Individual Outpatient Counseling 45 Minutes Clinical Social Work Individual Outpatient Counseling 45 Minutes 18639 10/28/19 12 BRIELLE RUIZ Clinical Social Work Individual Outpatient Counseling 45 Minutes Clinical Social Work Individual Outpatient Counseling 45 Minutes 75396 10/14/19 12 BRIELLE RUIZ Psychotherapy Individual Approx 30 Min W/ Medical Evaluation & Management Psychotherapy Individual Approx 30 Min W/ Medical Evaluation & Management 06043 10/12/[address] [facility] Clinical Social Work Individual Outpatient Counseling 45 Minutes Clinical Social Work Individual Outpatient Counseling 45 Minutes 78961 09/28/[address] [facility] Psychotherapy With Medication Management Psychotherapy With Medication Management 99953 09/19/[address] [facility] Clinical Social Work Individual Outpatient Counseling 45 Minutes Clinical Social Work Individual Outpatient Counseling 45 Minutes 11811 09/08/[address] [facility] Psychiatric Diagnostic Evaluation Comprehensive Examination Psychiatric Diagnostic Evaluation Comprehensive Examination 07984 09/02/[address] [facility] Psychiatric Diagnostic Evaluation Comprehensive Examination Psychiatric Diagnostic Evaluation Comprehensive Examination 15235 08/30/[address] [facility] Spectacles Services Fitting Monofocal Except For Aphakia Spectacles Services Fitting Monofocal Except For Aphakia 15334 02/23/20 11 GENO FRENCH Fitted and ordered 350, FOC. [facility] Determination Of Refractive State Determination Of Refractive State 03207 02/23/[address] [facility] Ophthalmological New Patient Start Comprehensive Care Ophthalmological New Patient Start Comprehensive Care 00733 02/23/[address] [facility] Threshold Audiogram (Pure Tone) Threshold Audiogram (Pure Tone) 76755 08/30/[address] [facility] Physician Supervised Group Educational Services 09/17/[address] [facility] Physician Supervised Services Provision Of Special Supplies Physician Supervised Services Provision Of Special Supplies 53631 09/17/[address] [facility] Audiometry Group Testing Audiometry Group Testing 35022 09/17/[address] [facility] ENT Services ENT Services 90374 09/17/[address] [facility] Special Physician Services Analysis Of Computerized Data Special Physician Services Analysis Of Computerized Data 20593 09/17/[address] [facility] Threshold Audiogram (Pure Tone) Threshold Audiogram (Pure Tone) 97550 09/17/[address] [facility] Influenza Split Virus Vaccine 0.5mL Dosage Intramuscular 08/31/20 05 [facility] Immunization Administration By Injection, One Vaccine Immunization Administration By Injection, One Vaccine 24709 08/31/20 05 [facility] Hepatitis A Vaccine Adult Dosage (Intramuscular Use) Hepatitis A Vaccine Adult Dosage (Intramuscular Use) 58383 08/31/20 05 [facility] Venipuncture Venipuncture 60773 08/31/20 05 [facility] Vaccines Viral Measles, Mumps and Rubella, Live Vaccines Viral Measles, Mumps and Rubella, Live 01111 08/31/20 05 [facility] Td Vaccine Td Vaccine 63806 08/31/[address] [place] [address] Skin Test Anergy Tuberculin Intradermal Skin Test Anergy Tuberculin Intradermal 43579 08/31/20 05 [facility] Physician Supervised Injection Subcutaneous Physician Supervised Injection Subcutaneous 29579 08/31/[address] [place] [address] Meningococcal Polysaccharide Vaccine Serogroup C Meningococcal Polysaccharide Vaccine Serogroup C 58428 08/31/20 05 [facility] Vaccines Viral Polio, Inactivated Vaccines Viral Polio, Inactivated 45298 08/31/20 05 [facility] Immunization Administration By Injection, Each Additional Vaccine 08/31/20 05 [facility] Spectacles Services Fitting Monofocal Except For Aphakia Spectacles Services Fitting Monofocal Except For Aphakia 91510 08/30/[address] [facility] Determination Of Refractive State Determination Of Refractive State 17889 08/30/[address] [facility] Ophthalmological New Patient Start Intermediate Level Care Ophthalmological New Patient Start Intermediate Level Care 29490 08/30/[address] [facility] Psychiatric Diagnostic Evaluation Psychiatric Diagnostic Evaluation [address] [facility] HEPATITIS A VACCINE (HEPA), ADULT DOSAGE, FOR INTRAMUSCULAR USE 08/31/[address] [facility] PHYS/OTH QUALIFIED HEALTH PROFESSOR OF EARLY CHILDHOOD EDUCATION QUALIFIED,EDUCATION, TRAIN,LICENSURE/REGU LATION (WHEN APPLICABLE) EDUC SER RENDERED TO PATS IN A GRP SETTING (EG,,OBESITY ,OR DIABETIC INSTRUCT) 08/30/[address] [facility] OPHTHALMOLOGICAL SERVICES: MEDICAL EXAMINATION AND EVALUATION WITH INITIATION OF DIAGNOSTIC AND TREATMENT PROGRAM; INTERMEDIATE, NEW PATIENT 08/30/[address] [facility] PSYCHIATRIC DIAGNOSTIC EVALUATION 02/11/[address] [facility] MOST RECENT DIASTOLIC BLOOD PRESSURE 80-89 MM HG (HTN, CKD, CAD) (DM) 05/24/[address] [facility] WEIGHT RECORDED (PAG) 05/04/[address] [facility] HEPATITIS A VACCINE (HEPA), ADULT DOSAGE, FOR INTRAMUSCULAR USE 04/06/[address] [facility] PHYS/OTH QUALIFIED HEALTH PROFESSOR OF EARLY CHILDHOOD EDUCATION QUALIFIED,EDUCATION, TRAIN,LICENSURE/REGU LATION (WHEN APPLICABLE) EDUC SER RENDERED TO PATS IN A GRP SETTING (EG,,OBESITY ,OR DIABETIC INSTRUCT) 02/11/[address] [facility] ANALYSIS OF CLINICAL DATA STORED IN COMPUTERS (EG, ECGS, BLOOD PRESSURES, HEMATOLOGIC DATA) 10/23/[address] [facility] SUPP &MATERIAL (EXCEPT SPECTACLE),PROVID,TH E PHYS/OTH QUALIFIED HEALTH PROFESSOR OF EARLY CHILDHOOD EDUCATION OVER &ABOVE THOSE USUALLY INCLD W THE OFFICE VISIT/OTH SER RENDERED (LIST DRUG,TRAYS,SUPP,OR MATERIAL PROVID) 09/17/[address] [facility] ANALYSIS OF CLINICAL DATA STORED IN COMPUTERS (EG, ECGS, BLOOD PRESSURES, HEMATOLOGIC DATA) 10/04/[address] [facility] COLLECTION OF VENOUS BLOOD BY VENIPUNCTURE 05/10/[address] [facility] OXYGEN UPTAKE, GAS ANALYSIS; REST AND EXERCISE, DIRECT, SIMPLE 09/02/[address] [facility] PSYC TSTNG(PSYCODIAG ASSESS,EMOTITY,INTEL LECTUAL ABILITIES,PERSONALIT Y&PSYCOPATHOLOGY,EG, MMPI&WAIS),W QUALIFIED HEALTH CARE PROFSIONAL INTERP&RPT,ADMINISTE RED MERCHANDISING MANAGER,/HR,TECH TME,FCE-2-FCE 02/28/[address] [facility] INDIVIDUAL PSYCHOTHERAPY, INSIGHT ORIENTED, BEHAVIOR MODIFYING AND/OR SUPPORTIVE, IN AN OFFICE OR OUTPATIENT FACILITY, APPROXIMATELY 45 TO 50 MINUTES [id number] WITH THE PATIENT 10/27/[address] [facility] INDIVIDUAL PSYCHOTHERAPY, INSIGHT ORIENTED, BEHAVIOR MODIFYING AND/OR SUPPORTIVE, IN AN OFFICE OR OUTPATIENT FACILITY, APPROXIMATELY 45 TO 50 MINUTES [id number] WITH THE PATIENT 10/13/[address] [facility] INDIVIDUAL PSYCHOTHERAPY, INSIGHT ORIENTED, BEHAVIOR MODIFYING AND/OR SUPPORTIVE, IN AN OFFICE OR OUTPATIENT FACILITY, APPROXIMATELY 20 TO 30 MINUTES [id number] W THE PATIENT; W MED EVAL & MGT SER 10/12/[address] [facility] INDIVIDUAL PSYCHOTHERAPY, INSIGHT ORIENTED, BEHAVIOR MODIFYING AND/OR SUPPORTIVE, IN AN OFFICE OR OUTPATIENT FACILITY, APPROXIMATELY 45 TO 50 MINUTES [id number] WITH THE PATIENT 09/27/[address] [facility] INDIVIDUAL PSYCHOTHERAPY, INSIGHT ORIENTED, BEHAVIOR MODIFYING AND/OR SUPPORTIVE, IN AN OFFICE OR OUTPATIENT FACILITY, APPROXIMATELY 20 TO 30 MINUTES [id number] W THE PATIENT; W MED EVAL & MGT SER 09/19/[address] [facility] INDIVIDUAL PSYCHOTHERAPY, INSIGHT ORIENTED, BEHAVIOR MODIFYING AND/OR SUPPORTIVE, IN AN OFFICE OR OUTPATIENT FACILITY, APPROXIMATELY 45 TO 50 MINUTES [id number] WITH THE PATIENT 09/02/[address] [facility] PSYCHIATRIC DIAGNOSTIC INTERVIEW EXAMINATION 09/02/[address] [facility] PSYCHIATRIC DIAGNOSTIC INTERVIEW EXAMINATION 08/24/[address] [facility] SCREENING TEST OF VISUAL ACUITY, QUANTITATIVE, BILATERAL 03/14/[address] [facility] FITTING OF SPECTACLES, EXCEPT FOR APHAKIA; MONOFOCAL 02/23/[address] [facility] PURE TONE AUDIOMETRY (THRESHOLD); AIR ONLY 08/30/20 10 [facility] Social History Combined list of available smoking, tobacco, and other social history from Department of Defense and Veterans Affairs facilities. Social History Type Response Date Comment Sour e This section is an empty social history section. [facility]
== END 2024-11-05 10:22 | disposition home or self-care (01) ==
LOC: HO.HOP 09:23
PROVIDERS: PCP Internal Medicine; Visit Provider Clinical Nurse Specialist Psychiatric/Mental Health
DX: F43.10 Post-traumatic stress disorder, unspecified (principal)
CPT/HCPCS: 99214

== ENCOUNTER → 2024-11-05 09:23 | Outpatient (BNVA) | payer OTHER, SELFPAY | PROVIDERS: PCP Internal Medicine; Visit Provider Clinical Nurse Specialist Psychiatric/Mental Health | DX: F43.10 Post-traumatic stress disorder, unspecified (principal) | CPT/HCPCS: 99212 ==

== ENCOUNTER 2024-11-19 12:49 | Outpatient (AMB) | payer OTHER, SELFPAY ==
--- NOTE | 2024-11-19 13:01 | AM.OFFWIN_ITS ---
Intake Vital Signs 3 11/19/24 13:02 Weight 320 lb BP 118/72 Blood Pressure Location Lt brachial Position Sitting Pulse 72 Pulse Source Pulse Oximeter Temp 98.2 F Temp Source Oral Pulse Oximetry (%) 98 Oxygen Delivery Method Room Air Intake Visit Reasons: EP Rt arm/elbow pain/swelling (not WC) Intake Note: Patient here for right elbow pain and swelling that started last night but he did have a fall last monday and landed on it and it was sore for a couple of days but has worsened over time. Patient Tobacco Use Status: Current someday Tobacco user Allergies amoxicillin Allergy (Mild, Verified 11/19/24 13:07) Hives Medication List - Last Reconciled 11/19/24 by Zhane Lynch MD fluoxetine (Prozac) 40 mg PO DAILY Do you need a note to return to daycare/school/sports/work: No HPI EP Rt arm/elbow pain/swelling (not WC) 2 HPI0 Details Chief Complaint - Pain and swelling in the right elbow f ollowing a fall a week ago History of Present Illness - The patient is a 39-year-old male pres enting with pain and swelling in the right elbow following a fall. - The patient fell on ice a week prior, resulting initially in pain but maintaining a good range of motion. - The condition worsened last night, pre senting today with swelling, pain, and limited range of motion. - Minor skin injury present at the time of fall but healed well without signs of infection Patient Instructions - Take prescribed antibiotics as directe d to prevent potential infection. Since there was a minor abrasion at the time of fall - Obtain an x-ray of the right elbow at the facility next door. - diclofenac prescribed for pain managem ent, take as needed with food - Monitor swelling; if not improved or w orsens, visit the emergency room to rule out septic arthritis - If symptoms do not improve with antibi otics, seek further evaluation promptly. 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 Skin: No rash Extremities: As per history [facility] Medical History Lumbar back pain with radiculopathy affecting right lower extremity Adjustment disorder Surgical History No pertinent past surgical history Family History Father COPD (chronic obstructive pulmonary disease) CHF (congestive heart failure) Mother Hypertension High cholesterol Brother High cholesterol Maternal Grandfather Skin cancer Social History Housing: House Alcohol intake: current Alcohol intake frequency: a few times a week Alcohol type: hard liquor Patient Tobacco Use Status: Current someday Tobacco user Tobacco use type: Cigar (once a month) and Smokeless Tobacco (Chewing Tobacco) e-Cigarette/Vaping Use: Never Used Second Hand Smoke Exposure: Yes service: Yes Current occupational status: employed Current occupational exposures/hazards: No Cognitive needs: No Hearing needs: No Vision needs: No Physical Exam Vital Signs: Last Vital Signs Temp 98.2 F 11/19/24 13:02 Pulse 72 11/19/24 13:02 BP 118/72 11/19/24 13:02 Pulse Ox 98 11/19/24 13:02 Oxygen Delivery Method Room Air 11/19/24 13:02 Const General: no acute distress Orientation/consciousness: patient oriented x3 Eyes General: appearance normal, both eyes and all related structures Resp Effort & Inspection: normal respiratory effort and able to speak in complete sentences Neuro General: patient oriented x3 Extrem Shoulder/upper arm images: 2 1. Swollen, range of motion limited because of swelling 2. 1 cm abrasion healed well, vascular intact neuro intact Psych Mental Status: mental status grossly normal Assessment & Plan Assessment & Plan (1) Swelling of joint, elbow, right: Code(s): M25.421 - Effusion, right elbow (2) Status post fall: Code(s): Z91.81 - History of falling Plan Chief Complaint - Pain and swelling in the right elbow following a fall a week ago History of Present Illness - The patient is a 39-year-old male presenting with pain and swelling in the right elbow following a fall. - The patient fell on ice a week prior, resulting initially in pain but maintaining a good range of motion. - The condition worsened last night, presenting today with swelling, pain, and limited range of motion. - Minor skin injury present at the time of fall but healed well without signs of infection Patient Instructions - Take prescribed antibiotics as directed to prevent potential infection. Since there was a minor abrasion at the time of fall - Obtain an x-ray of the right elbow at the facility next door. - diclofenac prescribed for pain management, take as needed with food - Monitor swelling; if not improved or worsens, visit the emergency room to rule out septic arthritis - If symptoms do not improve with antibiotics, seek further evaluation promptly. Patient does not know work note and would like to go back to work Orders: Orders 2 XR elbow RT 2V Today M25.421 - Effusion, right elbow Medications: New 2 levofloxacin 500 mg PO DAILY 7 days 7 tabs 0RF diclofenac sodium 75 mg PO BID 10 days 20 tabs 0RF pain Coding Level of Care Code Est Pt Level 4 (28467) Diagnoses Swelling of joint, elbow, right M25.421 Status post fall Z91.81
[2024-11-19 13:02] VITALS: BP 118/72; PULSE 72; TEMP 36.8; O2SAT 98
--- OUTSIDE RECORDS SUMMARY | 2024-11-19 13:41 | XMS_ITS | Continuity of Care Document ---
Author Name [facility] Organization [facility] Care Team Providers Care Predatory Animal Hunter Name Role Phone [facility] Unavailable Unavailable Problems Combined list of problems [...] DoD ankle sprain left Inactive Condition [facility] Patient Counseling: Inactive Condition No treatment [...] Drug allergy (disorder) Unknown [facility] Immunizations Combined list of available immunizations from the Department of Defense and Veterans Affairs facilities. Immunization Series Date Given Administered By Site Reaction Lot Number CVX Code Drug Hearing Screen Coordinator Status Comments Source influenza, injectable, quadrivalent, preservative free 2021 JANES GILLETTE () Not Given influenza , injectabl e, quadrival ent, preservat tino free [facility] Influenza, injectable, quadrivalent, preservative free 0 [...] dose 0 2020 Unknown, Provider TRS 208 [facility], [facility] (PFR) complet ed SARS-COV- 2 (COVID-19 ) vaccine, mRNA, spike protein, LNP, preservat tino free, 30 mcg/0.3mL dose DoD COVID-19, mRNA, LNP-S, PF, 30 mcg/0.3 mL dose 2020 JANES GILLETTE () Not Given COVID-19, mRNA, LNP-S, PF, 30 mcg/0.3 mL dose DoD SARS-COV-2 (COVID-19) vaccine, mRNA, spike protein, LNP, preservative free, 30 mcg/0.3mL dose 0 2020 Unknown, Provider TRS 208 [facility] (PFR) complet ed SARS-COV- 2 (COVID-19 ) [...] quadrivalent, preservative free 1 2016 [id number] 150 [place] (SKB) complet ed Influenza , injectabl e, quadrival ent, preservat tino free DoD influenza, injectable, quadrivalent, contains preservative 1 2015 [id number] 158 Seqirus (SEQ) complet ed influenza , injectabl e, quadrival ent, contains preservat tino DoD measles, mumps and rubella virus vaccine 2 2014 [id number] Merck (MSD) complet ed measles, mumps and rubella virus vaccine DoD Influenza, seasonal, injectable 2013 CARMELA ROQUE () Not Given Influenza , seasonal, injectabl e DoD influenza, injectable, quadrivalent, contains preservative 1 2013 [id number] 158 Novartis dineouttica l Adriano. (NOV) complet ed influenza , injectabl e, quadrival ent, contains preservat tino DoD Influenza, seasonal, injectable 0 2012 141 (MVX) complet ed Influenza , seasonal, injectabl e DoD Influenza, seasonal, injectable, preservative free 1 2012 [id number] 140 Unknown (UNK) comple t ed Influenza , seasonal, injectabl e, preservat tino free DoD Influenza, seasonal, injectable, preservative free 1 2011 [id number] 140 Novartis dineouttica l Adriano. (NOV) complet ed Influenza , seasonal, injectabl e, preservat tino free DoD tuberculin skin test; purified protein derivative solution, intradermal 0 2010 TRUDI BRIGGS 96 Transcribed (TRS) complet ed tuberculi n skin test; purified protein derivativ e solution, intraderm al DoD Influenza, seasonal, injectable, preservative free 1 2010 [id number] 140 Unknown (UNK) comple t ed Influenza , seasonal, injectabl e, preservat tino free DoD typhoid Vi capsular polysaccharid e vaccine 1 2010 [id number] 101 Sanofi Pasteur ([facility]) complet ed typhoid Vi capsular polysacch aride vaccine DoD anthrax vaccine 2 2010 [id number] 24 [facility] ([facility]) complet ed anthrax vaccine DoD tetanus toxoid, reduced diphtheria toxoid, and acellular pertu is vaccine, adsorbed 1 2010 [id number] 115 Sanofi Pasteur ([facility]) complet ed tetanus toxoid, reduced diphtheri a toxoid, and acellular pertussis vaccine, adsorbed DoD influenza virus vaccine, unspecified formulation 1 2010 [id number] 88 [facility] ([facility]) complet ed influenza virus vaccine, unspecifi ed formulati on DoD hepatitis A vaccine, adult dosage 4 2009 [id number] 52 [employer] (SKB) complet ed hepatitis A vaccine, adult dosage DoD Novel influenza-H1N 1-09, injectable 1 2008 [id number] 127 [place]. (NOV) complet ed Novel influenza -L8B8-15, injectabl e DoD anthrax vaccine 1 2008 [id number] 24 [facility] ([facility]) complet ed anthrax vaccine DoD typhoid Vi capsular polysaccharid e vaccine 1 2008 [id number] 101 Sanofi Pasteur ([facility]) complet ed typhoid Vi capsular polysacch aride vaccine DoD influenza virus vaccine, live, attenuated, for intranasal use 1 2007 [id number] 111 Other (OTH) complet ed influenza virus vaccine, live, attenuate d, for intranasa l use DoD influenza virus vaccine, live, attenuated, for intranasal use 1 2006 [id number] 111 [employer] (MED) complet ed influenza virus vaccine, [...] dosage DoD vaccinia (smallpox) vaccine 1 2005 [id number] 75 Rogelio-Geraldo (WAL) complet ed vaccinia (smallpox ) vaccine DoD typhoid Vi capsular polysaccharid e vaccine 1 2005 [id number] 101 Sanofi Pasteur ([facility]) complet ed typhoid [...] 2 Lf of diphtheria toxoid) 1 2004 [id number] 09 Sanofi Pasteur ([facility]MC) complet ed tetanus and diphtheri a toxoids, adsorbed, preservat tino free, for adult use (2 Lf of tetanus toxoid and 2 Lf of diphtheri a toxoid) DoD poliovirus vaccine, inactivated 1 2004 [id number] 10 Sanofi Pasteur ([facility]) complet ed polioviru s vaccine, inactivat ed DoD influenza virus vaccine, split virus (incl. purified surface antigen)-reti red CODE 1 2004 [id number] 15 [place]. (MED) complet ed influenza virus vaccine, split virus (incl. purified surface antigen)- retired CODE DoD meningococcal polysaccharid e vaccine (MPSV4) 1 2004 [id number] 32 Sanofi Pasteur ([facility]) complet ed meningoco ccal polysacch aride vaccine (MPSV4) DoD Encounters Combined list of: 1) Encounters from Department of Veterans Affairs facilities going backup to the last 18 months, not all VA inpatient encounters are included; 2) Encounters from the Department of Defense facilities going backup to 280 months. Location Location Details Encounter Type Encounter Number Reason For Visit Attending Provider ADM Date DC Date Status Disposition Source [place] [facility] [place] OUTPATIENT [id number] YEHUDA Vides 08/30 Released w/o Limitations [place] [facility] [id number] LATANYA PERALTA 08/31 Released w/o Limitations [place] [facility](1st C.R.O.W.S .) OUTPATIENT [id number] IMAN Miranda 01/24 Released w/o Limitations [facility](1 st C.R.O.W .S.) [facility]([place] 2-2 SBCT[place] OUTPATIENT [id number] left ankle pain TRUDI SAGASTUME 08/01 Released w/o Limitations [facility]([place] 2-2 SB[place]) [facility]([place] OUTPATIENT [id number] JESICA SUAREZ 09/17 Released w/o Limitations [facility]([place] [facility] ) [facility](AMH S 01A17 Fabricati on) OUTPATIENT [id number] hiv screeni YVAN Villegas 01/08 Released w/o Limitations [facility](A MHS 01[place] [facility](AMH S 01A17 Fabricati on) OUTPATIENT [id number] HIV test RENITA FERNANDEZ 05/27 Released w/o Limitations [facility](A MHS 01A17 [place]) [facility](AMH S 01A17 Fabricati on) OUTPATIENT [id number] oversea s screeni RENITA Feng 06/01 Released w/o Limitations [facility](A MHS 01A17 [place] t[place]) [facility](ZZZBH R Physical Exam) OUTPATIENT [id number] [facility] RON RODRIGUEZ 07/21 Released w/o Limitations [facility](ZZZ R Physica l Exam) [facility](1AD 11/07 In BAS) OUTPATIENT [id number] [facility] TAJALLI 07/29 Released w/o Limitations [facility](1AD 2 In BAS) [facility](ZZZ R Physical Exam) OUTPATIENT [id number] PDHA RON RODRIGUEZ 08/30 Released w/o Limitations [facility](ZZZ BHR Physica l Exam) [facility] Hearing Conservat ion) OUTPATIENT [id number] Pre-Dep loyment Hearing Test JOBY COX 08/30 Released w/o Limitations [facility] Hearing Conserv ation) [facility] Optometry ) OUTPATIENT [id number] eye exam GENO FRENCH 02/22 Released w/o Limitations [facility] Optomet ry) [facility] Primary Care) OUTPATIENT [id number] PHA, online portion complet ed FRANCISCO RIOS 03/14 Released w/o Limitations [facility] Primary Care) [facility] OUTPATIENT [id number] 06/17 Released w/o Limitations Theater Facilit y [facility](ZZZ R Pre/Post Deploymen t) OUTPATIENT [id number] redeplo yment FRANCISCO RIOS 08/13 Released w/o Limitations [facility](ZZZ BHR Pre/Pos t Deploym ent) [facility](1AD 11/07 In BAS) OUTPATIENT [id number] pdhWALTER Castillo 01/15 Released w/o Limitations [facility](1AD 6th In BAS) [facility]) OUTPATIENT [id number] meta/yue d pod/fit test NASRA UNGER 09/02 Released w/o Limitations [facility]( [facility]) ANGELA Phan([facility]) OUTPATIENT [id number] Notes Entered by: MILIND FERRO 04 May 2017 1319 ------- ------- ------- ------- -- PHA KATHERINE DURÁN 05/04 Released w/o Limitations ANGELA Phan([facility]) ANGELA Phan([facility]) OUTPATIENT [id number] Notes Entered by: MILIND FERRO 24 May 2017 1314 ------- ------- ------- ------- -- Hearing follow up KATHERINE DURÁN 05/24 Released w/o Limitations ANGELA Phan([facility]) ANGELA Phan([facility]) TELE CONSULT [id number] Notes Entered by: MAURICIO DAO 19 Jun 2019 0751 ------- ------- ------- ------- -- Month Medicat ion Review CORRINE DAO 06/19 Other Not Elsewhere Classified ANGELA Phan([facility]) ANGELA Phan([facility] F[facility]) TELE CONSULT [id number] 3 Notes Entered by: MAURICIO DAO 10 Sep 2020 1124 ------- ------- ------- ------- -- Month Medicat ion Review CORRINE DAO 09/10 Other Not Elsewhere Classified ANGELA Phan([facility]) Procedures Combined list of: 1) Procedures from Department of Veterans Affairs facilities going back up to thelast 18 months, not all VA non-surgical procedures are included; 2) All procedures from the Department of Defense facilities. Procedure Procedure Type Code Date Perfomer Comments Sour e Most Recent Diastolic BP 80-89 mmHg Most Recent Diastolic BP 80-89 mmHg 3079F 05/24/[address] [facility] Most Recent Systolic BP 130 - 139 mmHg Most Recent Systolic BP 130 - 139 mmHg 3075F 05/24/20 17 KATHERINE DURÁN Threshold Audiogram (Pure Tone) Threshold Audiogram (Pure Tone) 92703 05/24/20 17 KATHERINE DURÁN Weight Recorded Weight Recorded 2001F 05/04/20 17 KATHERINE DURÁN Most Recent Diastolic BP 80-89 mmHg Most Recent Diastolic BP 80-89 mmHg 3079F 05/04/20 17 KATHERINE DURÁN Most Recent Systolic BP < 130 mmHg Most Recent Systolic BP < 130 mmHg 3074F 05/04/20 17 KATHERINE DURÁN Threshold Audiogram (Pure Tone) Threshold Audiogram (Pure Tone) 21512 05/04/20 17 KATHERINE DURÁN Screening Test Of Visual Acuity, Quantitative, Bilateral Screening Test Of Visual Acuity, Quantitative, Bilateral 11201 05/04/20 17 KATHERINE DURÁN PT A e ment Physical Performance Testing PT Assessment Physical Performance Testing 55522 09/02/20 14 [facility] Pulmon Function - O2 Uptake - Gas Analysis [place], [place] Pulmon Function - [place] [address] 09/02/20 14 [facility] Pulmonary Function - O2 Uptake - Gas Determination Pulmonary Function - O2 Uptake - Gas Determination 30818 09/02/20 14 [facility] PT Performance Testing A istive Technology A e ment PT Performance Testing Assistive Technology Assessment 00329 09/02/20 14 [facility] Psychiatric Diagnostic Evaluation Review of Records and Reports Psychiatric Diagnostic Evaluation Review of Records and Reports 66608 02/28/20 12 ANTONIA SUNSHINE Psychologic Testing And Report Administered By Campus Director Psychologic Testing And Report Administered By Campus Director [id number] 02/28/[address] [facility] Psychiatric Diagnostic Evaluation Comprehensive Examination Psychiatric Diagnostic Evaluation Comprehensive Examination 80311 02/28/[address] [facility] Clinical Social Work Individual Outpatient Counseling 45 Minutes Clinical Social Work Individual Outpatient Counseling 45 Minutes 11316 10/28/19 12 BRIELLE RUIZ Clinical Social Work Individual Outpatient Counseling 45 Minutes Clinical Social Work Individual Outpatient Counseling 45 Minutes 57155 10/14/19 12 BRIELLE RUIZ Psychotherapy Individual Approx 30 Min W/ Medical Evaluation & Management Psychotherapy Individual Approx 30 Min W/ Medical Evaluation & Management 84081 10/12/[address] [facility] Clinical Social Work Individual Outpatient Counseling 45 Minutes Clinical Social Work Individual Outpatient Counseling 45 Minutes 24238 09/28/20 11 BRIELLE RUIZ Psychotherapy With Medication Management Psychotherapy With Medication Management 85854 09/19/[address] [facility] Clinical Social Work Individual Outpatient Counseling 45 Minutes Clinical Social Work Individual Outpatient Counseling 45 Minutes 69031 09/08/[address] [facility] Psychiatric Diagnostic Evaluation Comprehensive Examination Psychiatric Diagnostic Evaluation Comprehensive Examination 29288 09/02/[address] [facility] Psychiatric Diagnostic Evaluation Comprehensive Examination Psychiatric Diagnostic Evaluation Comprehensive Examination 11673 08/30/20 11 BRIELLE RUIZ [employer] Fitting Monofocal Except For Aphakia [employer] Fitting Monofocal Except For Aphakia 08419 02/23/20 11 GENO FRENCH Fitted and ordered 350, FOC. [facility] Determination Of Refractive State Determination Of Refractive State 38757 02/23/[address] [facility] Ophthalmological New Patient Start Comprehensive Care Ophthalmological New Patient Start Comprehensive Care 26577 02/23/[address] [facility] Threshold Audiogram (Pure Tone) Threshold Audiogram (Pure Tone) 26212 08/30/[address] [facility] Physician Supervised Group Educational Services 09/17/[address] [facility] Physician Supervised Services Provision Of Special Supplies Physician Supervised Services Provision Of Special Supplies 98389 09/17/[address] [facility] Audiometry Group Testing Audiometry Group Testing 41557 09/17/[address] [facility] ENT Services ENT Services 27596 09/17/[address] [facility] Special Physician Services Analysis Of Computerized Data Special Physician Services Analysis Of Computerized Data 04160 09/17/[address] [facility] Threshold Audiogram (Pure Tone) Threshold Audiogram (Pure Tone) 73797 09/17/[address] [facility] Influenza Split Virus Vaccine 0.5mL Dosage Intramuscular 08/31/[address] [facility] Immunization Administration By Injection, One Vaccine Immunization Administration By Injection, One Vaccine 71702 08/31/20 05 [facility] Hepatitis A Vaccine Adult Dosage (Intramuscular Use) Hepatitis A Vaccine Adult Dosage (Intramuscular Use) 96842 08/31/20 05 [facility] Venipuncture Venipuncture 23461 08/31/20 05 [facility] Vaccines Viral Measles, Mumps and Rubella, Live Vaccines Viral Measles, Mumps and Rubella, Live 61476 08/31/20 05 [facility] Td Vaccine Td Vaccine 81956 08/31/20 05 [facility] Skin Test Anergy Tuberculin Intradermal Skin Test Anergy Tuberculin Intradermal 88965 08/31/20 05 [facility] Physician Supervised Injection Subcutaneous Physician Supervised Injection Subcutaneous 47661 08/31/[address] [place] [address] Meningococcal Polysaccharide Vaccine Serogroup C Meningococcal Polysaccharide Vaccine Serogroup C 93782 08/31/20 05 [facility] Vaccines Viral Polio, Inactivated Vaccines Viral Polio, Inactivated 52767 08/31/20 05 [facility] Immunization Administration By Injection, Each Additional Vaccine 08/31/20 05 [facility] [employer] Fitting Monofocal Except For Aphakia [employer] [facility] Fitting Monofocal Except For Aphakia 08244 08/30/[address] [facility] Determination Of Refractive State Determination Of Refractive State 13028 08/30/[address] [facility] Ophthalmological New Patient Start Intermediate Level Care Ophthalmological New Patient Start Intermediate Level Care 77823 08/30/[address] [facility] Psychiatric Diagnostic Evaluation Psychiatric Diagnostic Evaluation [address] [facility] OXYGEN UPTAKE, GAS ANALYSIS; REST AND EXERCISE, DIRECT, SIMPLE 09/02/[address] [facility] PSYCHIATRIC DIAGNOSTIC EVALUATION 02/11/[address] [facility] MOST RECENT DIASTOLIC BLOOD PRESSURE 80-89 MM HG (HTN, CKD, CAD) (DM) 05/24/[address] [facility] WEIGHT RECORDED (PAG) 05/04/[address] [facility] HEPATITIS A VACCINE (HEPA), ADULT DOSAGE, FOR INTRAMUSCULAR USE 08/31/[address] [facility] PHYS/OTH QUALIFIED HEALTH LINK KNITTING MACHINE OPERATOR QUALIFIED,EDUCATION, TRAIN,LICENSURE/REGU LATION (WHEN APPLICABLE) EDUC SER RENDERED TO PATS IN A GRP SETTING (EG,,OBESITY ,OR DIABETIC INSTRUCT) 08/30/[address] [facility] OPHTHALMOLOGICAL SERVICES: MEDICAL EXAMINATION AND EVALUATION WITH INITIATION OF DIAGNOSTIC AND TREATMENT PROGRAM; INTERMEDIATE, NEW PATIENT 08/30/[address] [facility] PSYC TSTNG(PSYCODIAG ASSESS,EMOTITY,INTEL LECTUAL ABILITIES,PERSONALIT Y&PSYCOPATHOLOGY,EG, MMPI&WAIS),W QUALIFIED HEALTH CARE PROFSIONAL INTERP&RPT,ADMINISTE RED AIR QUALITY MANAGER,/HR,TECH TME,FCE-2-FCE 02/28/[address] [facility] INDIVIDUAL PSYCHOTHERAPY, INSIGHT ORIENTED, BEHAVIOR MODIFYING AND/OR SUPPORTIVE, IN AN OFFICE OR OUTPATIENT FACILITY, APPROXIMATELY 45 TO 50 MINUTES [id number] WITH THE PATIENT 10/27/[address] [facility] INDIVIDUAL PSYCHOTHERAPY, INSIGHT ORIENTED, BEHAVIOR MODIFYING AND/OR SUPPORTIVE, IN AN OFFICE OR OUTPATIENT FACILITY, APPROXIMATELY 45 TO 50 MINUTES [id number] WITH THE PATIENT 10/13/[address] [facility] INDIVIDUAL PSYCHOTHERAPY, INSIGHT ORIENTED, BEHAVIOR MODIFYING AND/OR SUPPORTIVE, IN AN OFFICE OR OUTPATIENT FACILITY, APPROXIMATELY 20 TO 30 MINUTES [id number] W THE PATIENT; W MED EVAL & MGT SER 10/12/[address] [facility] INDIVIDUAL PSYCHOTHERAPY, INSIGHT ORIENTED, BEHAVIOR MODIFYING AND/OR SUPPORTIVE, IN AN OFFICE OR OUTPATIENT FACILITY, APPROXIMATELY 45 TO 50 MINUTES [id number]-[id number] WITH THE PATIENT 09/27/[address] [facility] INDIVIDUAL PSYCHOTHERAPY, INSIGHT ORIENTED, BEHAVIOR MODIFYING AND/OR SUPPORTIVE, IN AN OFFICE OR OUTPATIENT FACILITY, APPROXIMATELY 20 TO 30 MINUTES [id number] W THE PATIENT; W MED EVAL & MGT SER 09/19/[address] [facility] INDIVIDUAL PSYCHOTHERAPY, INSIGHT ORIENTED, BEHAVIOR MODIFYING AND/OR SUPPORTIVE, IN AN OFFICE OR OUTPATIENT FACILITY, APPROXIMATELY 45 TO 50 MINUTES [id number] WITH THE PATIENT 09/02/[address] [facility] PSYCHIATRIC DIAGNOSTIC INTERVIEW EXAMINATION 09/02/[address] [facility] PSYCHIATRIC DIAGNOSTIC INTERVIEW EXAMINATION 08/24/[address] [facility] SCREENING TEST OF VISUAL ACUITY, QUANTITATIVE, BILATERAL 03/14/[address] [facility] FITTING OF SPECTACLES, EXCEPT FOR APHAKIA; MONOFOCAL 02/23/[address] [facility] PURE TONE AUDIOMETRY (THRESHOLD); AIR ONLY 08/30/[address] [facility] HEPATITIS A VACCINE (HEPA), ADULT DOSAGE, FOR INTRAMUSCULAR USE 04/06/[address] [facility] PHYS/OTH QUALIFIED HEALTH LINK KNITTING MACHINE OPERATOR QUALIFIED,EDUCATION, TRAIN,LICENSURE/REGU LATION (WHEN APPLICABLE) EDUC SER RENDERED TO PATS IN A [facility] SETTING (EG,,OBESITY ,OR DIABETIC INSTRUCT) 02/11/20 09 DoD ANALYSIS OF CLINICAL DATA STORED IN COMPUTERS (EG, ECGS, BLOOD PRESSURES, HEMATOLOGIC DATA) 10/23/19 09 DoD SUPP &MATERIAL (EXCEPT SPECTACLE),PROVID,TH E PHYS/OTH QUALIFIED HEALTH LINK KNITTING MACHINE OPERATOR OVER &ABOVE THOSE USUALLY INCLD W THE OFFICE VISIT/OTH SER RENDERED (LIST DRUG,TRAYS,SUPP,OR MATERIAL PROVID) 09/17/[address] [facility] ANALYSIS OF CLINICAL DATA STORED IN COMPUTERS (EG, ECGS, BLOOD PRESSURES, HEMATOLOGIC DATA) 10/04/[address] [facility] COLLECTION OF VENOUS BLOOD BY VENIPUNCTURE 05/10/20 07 DoD Social History Combined list of available smoking, tobacco, and other social history from Department of Defense and Veterans Affairs facilities. Social History Type Response Date Comment Sour e This section is an empty social history section. DoD
== END 2024-11-19 13:46 | disposition home or self-care (01) ==
PROVIDERS: PCP Internal Medicine; Visit Provider Internal Medicine
DX: M25.421 Effusion, right elbow (principal); Z91.81 History of falling

== ENCOUNTER 2024-11-19 12:49 | Outpatient (REF) | payer OTHER, SELFPAY ==
--- NOTE | ~2024-11-19 | XR_ITS ---
EXAMINATION: XR ELBOW, RIGHT CLINICAL INFORMATION: M25.421 - Effusion, right elbow COMPARISON: None available. TECHNIQUE: AP, lateral, and oblique views of the right elbow. FINDINGS: No fracture, dislocation, or suspicious bone lesion. Normal alignment. Normal joint spaces. No evidence of joint effusion. Soft tissue swelling overlying the olecranon suspicious for olecranon bursitis. XR/XR elbow RT min 3V IMPRESSION: 1. No acute bony abnormalities. No joint effusion. 2. Soft tissue swelling overlying the olecranon suspicious for olecranon bursitis. Electronically signed by: Titi Juan MD 11/20/2024 10:20 AM [facility]
--- OUTSIDE RECORDS SUMMARY | 2024-11-19 14:16 | XMS_ITS | Continuity of Care Document ---
Author Name [facility] Organization [facility] Care Team Providers Care Crab Picker Name Role Phone [facility] Unavailable Unavailable Problems Combined list of problems [...] Condition DoD ankle sprain left Inactive Condition [facility] Patient Counseling: Inactive Condition No treatment indicated [...] TRIHYDRATE) Drug allergy (disorder) Unknown active [facility] Immunizations Combined list of available immunizations from the Department of Defense and Veterans Affairs facilities. Immunization Series Date Given Administered By Site Reaction Lot Number CVX Code Drug Pocket Setter Lockstitch Status Comments Source influenza, injectable, quadrivalent, preservative free 2021 JANES GILLETTE () Not Given influenza , injectabl e, quadrival ent, preservat tino free [facility] Influenza, injectable, quadrivalent, preservative free 0 2021 [...] dose 0 2020 Unknown, Provider TRS 208 [facility], [facility] (PFR) complet ed SARS-COV- 2 (COVID-19 ) vaccine, mRNA, spike protein, LNP, preservat tino free, 30 mcg/0.3mL dose DoD COVID-19, mRNA, LNP-S, PF, 30 mcg/0.3 mL dose 2020 JANES GILLETTE () Not Given COVID-19, mRNA, LNP-S, PF, 30 mcg/0.3 mL dose DoD SARS-COV-2 (COVID-19) vaccine, mRNA, spike protein, LNP, preservative free, 30 mcg/0.3mL dose 0 2020 Unknown, Provider TRS 208 [employer] (PFR) complet ed SARS-COV- 2 (COVID-19 ) [...] quadrivalent, preservative free 1 2016 [id number] [place] (SKB) complet ed Influenza , injectabl e, quadrival ent, preservat tino free DoD influenza, injectable, quadrivalent, contains preservative 1 2015 [id number] 158 [employer] (SEQ) complet ed influenza , injectabl e, quadrival ent, contains preservat tino DoD measles, mumps and rubella virus vaccine 2 2014 [id number] Merck (MSD) complet ed measles, mumps and rubella virus vaccine DoD Influenza, seasonal, injectable 2013 CARMELA ROQUE () Not Given Influenza , seasonal, injectabl e DoD influenza, injectable, quadrivalent, contains preservative 1 2013 [id number] 158 Novartis [employer] Adriano. (NOV) complet ed influenza , injectabl e, quadrival ent, contains preservat tino DoD Influenza, seasonal, injectable 0 2012 141 (MVX) complet ed Influenza , seasonal, injectabl e DoD Influenza, seasonal, injectable, preservative free 1 2012 [id number] 140 Unknown (UNK) comple t ed Influenza , seasonal, injectabl e, preservat tino free DoD Influenza, seasonal, injectable, preservative free 1 2011 [id number] 140 Novartis [employer] [place]. (NOV) complet ed Influenza , seasonal, injectabl e, preservat tino free DoD tuberculin skin test; purified protein derivative solution, intradermal 0 2010 TRUDI BRIGGS 96 Transcribed (TRS) complet ed tuberculi n skin test; purified protein derivativ e solution, intraderm al DoD Influenza, seasonal, injectable, preservative free 1 2010 [id number] 140 Unknown (UNK) comple t ed Influenza , seasonal, injectabl e, preservat tino free DoD typhoid Vi capsular polysaccharid e vaccine 1 2010 [id number] 101 Sanofi Pasteur ([facility]) complet ed typhoid Vi capsular polysacch aride vaccine DoD anthrax vaccine 2 2010 [id number] 24 [facility] ([facility]) complet ed anthrax vaccine DoD tetanus toxoid, reduced diphtheria toxoid, and acellular pertu is vaccine, adsorbed 1 2010 [id number] 115 Sanofi Pasteur ([facility]) complet ed tetanus toxoid, reduced diphtheri a toxoid, and acellular pertussis vaccine, adsorbed DoD influenza virus vaccine, unspecified formulation 1 2010 [id number] 88 [facility] ([facility]) complet ed influenza virus vaccine, unspecifi ed formulati on DoD hepatitis A vaccine, adult dosage 4 2009 [id number] 52 [employer] (SKB) complet ed hepatitis A vaccine, adult dosage DoD Novel influenza-H1N 1-09, injectable 1 2008 [id number] 127 [employer]. (NOV) complet ed Novel influenza -[id number], injectabl e DoD anthrax vaccine 1 2008 [id number] 24 [facility] ([facility]) complet ed anthrax vaccine DoD typhoid Vi capsular polysaccharid e vaccine 1 2008 [id number] 101 Sanofi Pasteur ([facility]) complet ed typhoid Vi capsular polysacch aride vaccine DoD influenza virus vaccine, live, attenuated, for intranasal use 1 2007 [id number] 111 Other (OTH) complet ed influenza virus vaccine, live, attenuate d, for intranasa l use DoD influenza virus vaccine, live, attenuated, for intranasal use 1 2006 [id number] 111 [employer] (MED) complet ed influenza virus vaccine, [...] dosage DoD vaccinia (smallpox) vaccine 1 2005 [id number] 75 Rogelio[employer]Geraldo (WAL) complet ed vaccinia (smallpox ) vaccine DoD typhoid Vi capsular polysaccharid e vaccine 1 2005 [id number] 101 Sanofi Pasteur ([facility]MC) complet ed typhoid [...] 2 Lf of diphtheria toxoid) 1 2004 [id number] 09 Sanofi Pasteur (PMC) complet ed tetanus and diphtheri a toxoids, adsorbed, preservat tino free, for adult use (2 Lf of tetanus toxoid and 2 Lf of diphtheri a toxoid) DoD poliovirus vaccine, inactivated 1 2004 [id number] 10 Sanofi Pasteur (PMC) complet ed polioviru s vaccine, inactivat ed DoD influenza virus vaccine, split virus (incl. purified surface antigen)-reti red CODE 1 2004 [id number] 15 [employer]. (MED) complet ed influenza virus vaccine, split virus (incl. purified surface antigen)- retired CODE DoD meningococcal polysaccharid e vaccine (MPSV4) 1 2004 [id number] 32 Sanofi Pasteur (PMC) complet ed meningoco [...] [place] [facility] ) OUTPATIENT [id number] YEHUDA Vides 08/30 Released w/o Limitations Veronica [place] Optomet [facility]) [place] OUTPATIENT [id number] LATANYA PERALTA 08/31 Released w/o Limitations Ver[place](Rece [place] Station ) [facility](1st C.R.O.W.S .) OUTPATIENT [id number] IMAN Miranda 01/24 Released w/o Limitations [facility](1 st C.R.O.W .S.) [facility]([place] 2-2 SBCT) OUTPATIENT [id number] left ankle pain TRUDI SAGASTUME 08/01 Released w/o Limitations [facility]([place] 2-2 SBCT) [facility]([place] Hearing Program) OUTPATIENT [id number] JESICA SUAREZ 09/17 Released w/o Limitations [facility]([place] [facility] ) [facility](AMH S 01A17 Fabricati on) OUTPATIENT [id number] hiv screeni YVAN Villegas 01/08 Released w/o Limitations [facility](A MHS 01A17 Biscoe tion) [facility](AMH S 01A17 Fabricati on) OUTPATIENT [id number] HIV test RENITA FERNANDEZ 05/27 Released w/o Limitations [facility](A MHS 01A17 Biscoe tion) [facility](AMH S 01A17 Fabricati on) OUTPATIENT [id number] oversea s screeni RENITA Feng 06/01 Released w/o Limitations [facility](A MHS 01A17 Biscoe tion) [facility](ZZZBH R Physical Exam) OUTPATIENT [id number] [facility] RON RODRIGUEZ 07/21 Released w/o Limitations [facility](ZZZ R Physica l Exam) [facility](1AD 11/07 In BAS) OUTPATIENT [id number] [facility] TAJALLI 07/29 Released w/o Limitations [facility](1AD 2 In BAS) [facility](ZZZ R Physical Exam) OUTPATIENT [id number] PDHA RON RODRIGUEZ 08/30 Released w/o Limitations [facility](ZZZ BHR Physica l Exam) [facility] Hearing Conservat ion) OUTPATIENT [id number] Pre-Dep loyment Hearing Test JOBY COX 08/30 Released w/o Limitations [facility] Hearing Conserv ation) [facility] Optometry ) OUTPATIENT [id number] eye exam GENO FRENCH 02/22 Released w/o Limitations [facility] Optomet ry) [facility] Primary Care) OUTPATIENT [id number] PHA, online portion complet ed FRANCISCO RIOS 03/14 Released w/o Limitations [facility] Primary Care) [facility] OUTPATIENT [id number] 06/17 Released w/o Limitations Theater Facilit y [facility](ZZZ R Pre/Post Deploymen t) OUTPATIENT [id number] redeplo yment FRANCISCO RIOS 08/13 Released w/o Limitations [facility](ZZZ BHR Pre/Pos t Deploym ent) [facility](1AD 11/07 In BAS) OUTPATIENT [id number] pdhWALTER Castillo 01/15 Released w/o Limitations [facility](1AD 6th In BAS) [facility]) OUTPATIENT [id number] meta/yue d pod/fit test NASRA UNGER 09/02 Released w/o Limitations [facility]( [facility]) ANGELA Phan([facility]) OUTPATIENT [id number] Notes Entered by: MILIND FERRO 04 May 2017 1319 ------- ------- ------- ------- -- PHA KATHERINE DURÁN 05/04 Released w/o Limitations ANGELA Phan([facility]) ANGELA Phan([facility]) OUTPATIENT [id number] Notes Entered by: MILIND FERRO 24 May 2017 1314 ------- ------- ------- ------- -- Hearing follow up KATHERINE DURÁN 05/24 Released w/o Limitations ANGELA Phan([facility]) ANGELA Phan(COUNTS INCLUDE 234 BEDS AT THE [facility] S01A [facility]) TELE CONSULT [id number] 2 Notes Entered by: MAURICIO DAO 19 Jun 2019 0751 ------- ------- ------- ------- -- Month Medicat ion Review CORRINE DAO 06/19 Other Not Elsewhere Classified ANGELA Phan(COUNTS INCLUDE 234 BEDS AT THE [facility] S[facility]) ANGELA Phan(COUNTS INCLUDE 234 BEDS AT THE [facility] F02B [facility]) TELE CONSULT [id number] 3 Notes Entered by: MAURICIO DAO 10 Sep 2020 1124 ------- ------- ------- ------- -- Month Medicat ion Review CORRINE DAO 09/10 Other Not Elsewhere Classified ANGELA Phan(COUNTS INCLUDE 234 BEDS AT THE [facility] F02B [facility]) Procedures Combined list of: 1) Procedures from Department of Veterans Affairs facilities going back up to thelast 18 months, not all VA non-surgical procedures are included; 2) All procedures from the Department of Defense facilities. Procedure Procedure Type Code Date Perfomer Comments Sour e Most Recent Diastolic BP 80-89 mmHg Most Recent Diastolic BP 80-89 mmHg 3079F 05/24/20 17 KATHERINE DURÁN [facility] Most Recent Systolic BP 130 - 139 mmHg Most Recent Systolic BP 130 - 139 mmHg 3075F 05/24/20 17 KATHERINE DURÁN Threshold Audiogram (Pure Tone) Threshold Audiogram (Pure Tone) 24512 05/24/20 17 KATHERINE DURÁN Weight Recorded Weight Recorded 2001F 05/04/20 17 KATHERINE DURÁN Most Recent Diastolic BP 80-89 mmHg Most Recent Diastolic BP 80-89 mmHg 3079F 05/04/20 17 KATHERINE DURÁN Most Recent Systolic BP < 130 mmHg Most Recent Systolic BP < 130 mmHg 3074F 05/04/20 17 KATHERINE DURÁN Threshold Audiogram (Pure Tone) Threshold Audiogram (Pure Tone) 01003 05/04/20 17 KATHERINE DURÁN Screening Test Of Visual Acuity, Quantitative, Bilateral Screening Test Of Visual Acuity, Quantitative, Bilateral 34258 05/04/20 17 KATHERINE DURÁN PT A e ment Physical Performance Testing PT Assessment Physical Performance Testing 66457 09/02/20 14 [facility] Pulmon Function - O2 Uptake - Gas Analysis Rest, Ind Pulmon Function - [place] [address] 09/02/20 14 [facility] Pulmonary Function - O2 Uptake - Gas Determination Pulmonary Function - O2 Uptake - Gas Determination 56971 09/02/20 14 [facility] PT Performance Testing A istive Technology A e ment PT Performance Testing Assistive Technology Assessment 55596 09/02/20 14 [facility] Psychiatric Diagnostic Evaluation Review of Records and Reports Psychiatric Diagnostic Evaluation Review of Records and Reports 97526 02/28/20 12 ANTONIA SUNSHINE Psychologic Testing And Report Administered By Bonding Equipment Operator Psychologic Testing And Report Administered By Bonding Equipment Operator 77415 02/28/20 12 ANTONIA SUNSHINE [facility] Psychiatric Diagnostic Evaluation Comprehensive Examination Psychiatric Diagnostic Evaluation Comprehensive Examination 67788 02/28/20 12 ANTONIA SUNSHINE [facility] Clinical Social Work Individual Outpatient Counseling 45 Minutes Clinical Social Work Individual Outpatient Counseling 45 Minutes 17121 10/28/19 12 BRIELLE RUIZ Clinical Social Work Individual Outpatient Counseling 45 Minutes Clinical Social Work Individual Outpatient Counseling 45 Minutes 81846 10/14/19 12 BRIELLE RUIZ Psychotherapy Individual Approx 30 Min W/ Medical Evaluation & Management Psychotherapy Individual Approx 30 Min W/ Medical Evaluation & Management 07000 10/12/19 12 DILEEP HANSON [facility] Clinical Social Work Individual Outpatient Counseling 45 Minutes Clinical Social Work Individual Outpatient Counseling 45 Minutes 95647 09/28/20 11 BRIELLE RUIZ Psychotherapy With Medication Management Psychotherapy With Medication Management 84739 09/19/20 11 DILEEP HANSON [facility] Clinical Social Work Individual Outpatient Counseling 45 Minutes Clinical Social Work Individual Outpatient Counseling 45 Minutes 81845 09/08/20 11 BRIELLE RUIZ [facility] Psychiatric Diagnostic Evaluation Comprehensive Examination Psychiatric Diagnostic Evaluation Comprehensive Examination 04388 09/02/20 11 DILEEP HANSON [facility] Psychiatric Diagnostic Evaluation Comprehensive Examination Psychiatric Diagnostic Evaluation Comprehensive Examination 99484 08/30/20 11 BRIELLE RUIZ [employer] Fitting Monofocal Except For Aphakia [employer] Fitting Monofocal Except For Aphakia 82142 02/23/20 11 GENO FRENCH Fitted and ordered 350, FOC. [facility] Determination Of Refractive State Determination Of Refractive State 14354 02/23/20 11 GENO FRENCH [facility] Ophthalmological New Patient Start Comprehensive Care Ophthalmological New Patient Start Comprehensive Care 46161 02/23/20 11 GENO FRENCH [facility] Threshold Audiogram (Pure Tone) Threshold Audiogram (Pure Tone) 69107 08/30/20 10 JOBY COX [facility] Physician Supervised Group Educational Services 09/17/20 08 NARENDRA COOLEY [facility] Physician Supervised Services Provision Of Special Supplies Physician Supervised Services Provision Of Special Supplies 89675 09/17/20 08 NARENDRA COOLEY [facility] Audiometry Group Testing Audiometry Group Testing 48672 09/17/20 08 NARENDRA COOLEY [facility] ENT Services ENT Services 91423 09/17/20 08 NARENDRA COOLEY [facility] Special Physician Services Analysis Of Computerized Data Special Physician Services Analysis Of Computerized Data 45416 09/17/20 08 NARENDRA COOLEY [facility] Threshold Audiogram (Pure Tone) Threshold Audiogram (Pure Tone) 41411 09/17/20 08 NARENDRA COOLEY [facility] Influenza Split Virus Vaccine 0.5mL Dosage Intramuscular 08/31/20 05 LATANYA RUIZ [facility] Immunization Administration By Injection, One Vaccine Immunization Administration By Injection, One Vaccine 15880 08/31/20 05 [facility] Hepatitis A Vaccine Adult Dosage (Intramuscular Use) Hepatitis A Vaccine Adult Dosage (Intramuscular Use) 91303 08/31/20 05 [facility] Venipuncture Venipuncture 35270 08/31/20 05 [facility] Vaccines Viral Measles, Mumps and Rubella, Live Vaccines Viral Measles, Mumps and Rubella, Live 89472 08/31/20 05 [facility] Td Vaccine Td Vaccine 04531 08/31/20 05 [facility] Skin Test Anergy Tuberculin Intradermal Skin Test Anergy Tuberculin Intradermal 40784 08/31/20 05 [facility] Physician Supervised Injection Subcutaneous Physician Supervised Injection Subcutaneous 35391 08/31/[address] [place] [address] Meningococcal Polysaccharide Vaccine Serogroup C Meningococcal Polysaccharide Vaccine Serogroup C 04364 08/31/20 05 [facility] Vaccines Viral Polio, Inactivated Vaccines Viral Polio, Inactivated 42454 08/31/20 05 [facility] Immunization Administration By Injection, Each Additional Vaccine 08/31/20 05 [facility] [employer] Fitting Monofocal Except For Aphakia [employer] Fitting Monofocal Except For Aphakia 02375 08/30/20 05 YEHUDA POLK [facility] Determination Of Refractive State Determination Of Refractive State 95734 08/30/20 05 YEHUDA POLK [facility] Ophthalmological New Patient Start Intermediate Level Care Ophthalmological New Patient Start Intermediate Level Care 71289 08/30/20 05 YEHUDA POLK [facility] Psychiatric Diagnostic Evaluation Psychiatric Diagnostic Evaluation 44023 ERNESTO MOYER [facility] OXYGEN UPTAKE, GAS ANALYSIS; REST AND EXERCISE, DIRECT, SIMPLE 09/02/20 14 [facility] PSYCHIATRIC DIAGNOSTIC EVALUATION 02/11/20 22 [facility] MOST RECENT DIASTOLIC BLOOD PRESSURE 80-89 MM HG (HTN, CKD, CAD) (DM) 05/24/20 17 [facility] WEIGHT RECORDED (PAG) 05/04/20 17 [facility] HEPATITIS A VACCINE (HEPA), ADULT DOSAGE, FOR INTRAMUSCULAR USE 08/31/20 05 [facility] PHYS/OTH QUALIFIED HEALTH FUR LINER QUALIFIED,EDUCATION, TRAIN,LICENSURE/REGU LATION (WHEN APPLICABLE) EDUC SER RENDERED TO PATS IN A GRP SETTING (EG,,OBESITY ,OR DIABETIC INSTRUCT) 08/30/20 05 [facility] OPHTHALMOLOGICAL SERVICES: MEDICAL EXAMINATION AND EVALUATION WITH INITIATION OF DIAGNOSTIC AND TREATMENT PROGRAM; INTERMEDIATE, NEW PATIENT 08/30/20 05 [facility] PSYC TSTNG(PSYCODIAG ASSESS,EMOTITY,INTEL LECTUAL ABILITIES,PERSONALIT Y&PSYCOPATHOLOGY,EG, MMPI&WAIS),W QUALIFIED HEALTH CARE PROFSIONAL INTERP&RPT,ADMINISTE RED HEMATOLOGY TECHNOLOGIST,/HR,TECH TME,FCE-2-FCE 02/28/20 12 [facility] INDIVIDUAL PSYCHOTHERAPY, INSIGHT ORIENTED, BEHAVIOR MODIFYING AND/OR SUPPORTIVE, IN AN OFFICE OR OUTPATIENT FACILITY, APPROXIMATELY 45 TO 50 MINUTES [id number] WITH THE PATIENT 10/27/19 12 [facility] INDIVIDUAL PSYCHOTHERAPY, INSIGHT ORIENTED, BEHAVIOR MODIFYING AND/OR SUPPORTIVE, IN AN OFFICE OR OUTPATIENT FACILITY, APPROXIMATELY 45 TO 50 MINUTES [id number] WITH THE PATIENT 10/13/19 12 [facility] INDIVIDUAL PSYCHOTHERAPY, INSIGHT ORIENTED, BEHAVIOR MODIFYING AND/OR SUPPORTIVE, IN AN OFFICE OR OUTPATIENT FACILITY, APPROXIMATELY 20 TO 30 MINUTES [id number] W THE PATIENT; W MED EVAL & MGT SER 10/12/19 12 [facility] INDIVIDUAL PSYCHOTHERAPY, INSIGHT ORIENTED, BEHAVIOR MODIFYING AND/OR SUPPORTIVE, IN AN OFFICE OR OUTPATIENT FACILITY, APPROXIMATELY 45 TO 50 MINUTES [id number]-[id number] WITH THE PATIENT 09/27/20 11 [facility] INDIVIDUAL PSYCHOTHERAPY, INSIGHT ORIENTED, BEHAVIOR MODIFYING AND/OR SUPPORTIVE, IN AN OFFICE OR OUTPATIENT FACILITY, APPROXIMATELY 20 TO 30 MINUTES [id number] W THE PATIENT; W MED EVAL & MGT SER 09/19/20 11 [facility] INDIVIDUAL PSYCHOTHERAPY, INSIGHT ORIENTED, BEHAVIOR MODIFYING AND/OR SUPPORTIVE, IN AN OFFICE OR OUTPATIENT FACILITY, APPROXIMATELY 45 TO 50 MINUTES [id number] WITH THE PATIENT 09/02/20 11 [facility] PSYCHIATRIC DIAGNOSTIC INTERVIEW EXAMINATION 09/02/20 11 [facility] PSYCHIATRIC DIAGNOSTIC INTERVIEW EXAMINATION 08/24/20 11 [facility] SCREENING TEST OF VISUAL ACUITY, QUANTITATIVE, BILATERAL 03/14/20 11 [facility] FITTING OF SPECTACLES, EXCEPT FOR APHAKIA; MONOFOCAL 02/23/20 11 [facility] PURE TONE AUDIOMETRY (THRESHOLD); AIR ONLY 08/30/20 10 [facility] HEPATITIS A VACCINE (HEPA), ADULT DOSAGE, FOR INTRAMUSCULAR USE 04/06/20 10 [facility] PHYS/OTH QUALIFIED HEALTH FUR LINER QUALIFIED,EDUCATION, TRAIN,LICENSURE/REGU LATION (WHEN APPLICABLE) EDUC SER RENDERED TO PATS IN A [facility] SETTING (EG,,OBESITY ,OR DIABETIC INSTRUCT) 02/11/20 09 [facility]D ANALYSIS OF CLINICAL DATA STORED IN COMPUTERS (EG, ECGS, BLOOD PRESSURES, HEMATOLOGIC DATA) 10/23/19 09 DoD SUPP &MATERIAL (EXCEPT SPECTACLE),PROVID,TH E PHYS/OTH QUALIFIED HEALTH FUR LINER OVER &ABOVE THOSE USUALLY INCLD W THE OFFICE VISIT/OTH SER RENDERED (LIST DRUG,TRAYS,SUPP,OR MATERIAL PROVID) 09/17/20 08 [facility] ANALYSIS OF CLINICAL DATA STORED IN COMPUTERS (EG, ECGS, BLOOD PRESSURES, HEMATOLOGIC DATA) 10/04/19 08 [facility] COLLECTION OF VENOUS BLOOD BY VENIPUNCTURE 05/10/20 07 DoD Social History Combined list of available smoking, tobacco, and other social history from Department of Defense and Veterans Affairs facilities. Social History Type Response Date Comment Sour e This section is an empty social history section. DoD
== END 2024-11-19 12:50 | disposition home or self-care (01) ==
LOC: HO.HMGCX 12:49
PROVIDERS: PCP Internal Medicine; Visit Provider Internal Medicine
DX: M25.421 Effusion, right elbow (principal); Z91.81 History of falling
CPT/HCPCS: 73080; 99212

== ENCOUNTER → 2024-11-19 13:38 | Outpatient (BNV) | payer OTHER, SELFPAY | PROVIDERS: PCP Internal Medicine; Visit Provider Radiology Diagnostic Radiology | DX: R22.31 Localized swelling, mass and lump, right upper limb (principal) | CPT/HCPCS: 73080 ==

== ENCOUNTER 2024-11-22 09:32 | Outpatient (AMB) | payer OTHER, SELFPAY ==
--- NOTE | 2024-11-22 09:42 | AM.OFFWIN_ITS ---
Intake Vital Signs 11/22/24 09:45 Weight 317 lb BP 130/80 Blood Pressure Location Lt brachial Position Sitting Pulse 86 Pulse Source Pulse Oximeter Pulse Oximetry (%) 98 Oxygen Delivery Method Room Air Intake Visit Reasons: EP ? infection on RT elbow Intake Note: Patient here right elbow infection that is spreading up the arm and down the arm even after starting antibiotics. Patient Tobacco Use Status: Current someday Tobacco user Allergies amoxicillin Allergy (Mild, Verified 11/19/24 13:07) Hives Do you need a note to return to daycare/school/sports/work: No HPI HPI Comments History of Present Illness Details This is a 39-year-old male who presented to the walk-in clinic complaining of worsening elbow pain/swelling and erythema of his right arm. He was evaluated at the walk-in clinic on 11/19/2024 following a fall that occurred 1 week prior. He underwent an x-ray of the right elbow, which showed olecranon bursitis but no fracture/dislocations. He was discharged on PO levofloxacin 500 mg daily x7 days to prevent septic/infectious bursitis. He was instructed to proceed to the emergency room if he were to develop worsening symptoms. Patient states that he has been taking the levofloxacin as prescribed; however, he has had worsening elbow pain/swelling as well as increasing erythema of the left forearm. He denies any fever/chills. [facility] Medical History Lumbar back pain with radiculopathy affecting right lower extremity Adjustment disorder Surgical History No pertinent past surgical history Family History Father COPD (chronic obstructive pulmonary disease) CHF (congestive heart failure) Mother Hypertension High cholesterol Brother High cholesterol Maternal Grandfather Skin cancer Social History Housing: House Alcohol intake: current Alcohol intake frequency: a few times a week Alcohol t ype: hard liquor Patient Tobacco Use Status: Current someday Tobacco user Tobacco use type: Cigar (once a month) and Smokeless Tobacco (Chewing Tobacco) e-Cigarette/Vaping Use: Never Used Second Hand Smoke Exposure: Yes service: Yes Current occupational status: employed Current occupational exposures/hazards: No Cognitive needs: No Hearing needs: No Vision needs: No Review of Systems Const All systems reviewed & are unremarkable except as noted in HPI and below Reports no additional complaints Eyes Reports no additional complaints ENT Reports no additional complaints Card Reports no additional complaints Resp Reports no additional complaints GI Reports no additional complaints Reports no additional complaints Musc Reports no additional complaints Skin/Breast Reports system reviewed and no additional complaints, except as documented Neuro Reports no additional complaints Psych Reports no additional complaints Endo Reports no additional complaints Jeff/Lymph Reports no additional complaints Aller/Immun Reports no additional complaints Physical Exam Vital Signs: Last Vital Signs Pulse 86 11/22/24 09:45 BP 130/80 11/22/24 09:45 Pulse Ox 98 11/22/24 09:45 Oxygen Delivery Method Room Air 11/22/24 09:45 Const Other: Vital signs reviewed. Constitutional: Non-toxic appearing. No acute distress. Well-developed and well-nourished. HEENT: Normocephalic and atraumatic. Skin: Warm and dry. No rashes or lesions noted. There is erythema of the right elbow extending proximally to his upper arm and distally throughout his forearm. Neck: Full and painless range of motion. No cervical lymphadenopathy. Cardio: Regular rate. No lower extremity edema. No JVD. Pulmonary: No respiratory distress. No accessory muscle usage. Musculoskeletal: He has mildly reduced range of motion of the right elbow due to pain and swelling. There is moderate swelling and erythema of the right elbow with diffuse tenderness to palpation. Neuro: Alert and oriented x4. Cranial nerves 2-12 grossly intact. No focal deficits appreciated. Psych: Normal mood and affect. Assessment & Plan Assessment & Plan (1) Swelling of joint, elbow, right: Code(s): M25.421 - Effusion, right elbow Plan This is a 39-year-old male who presented to the walk-in clinic complaining of worsening right elbow pain/swelling/erythema and erythema of the right arm despite oral antibiotic treatment. He was given levofloxacin on 11/19/2024 to prevent septic/infectious bursitis; however, his symptoms have been worsening despite compliance with antibiotics. There is concern for septic/infectious bursitis so the patient was advised to proceed directly to the emergency room for IV antibiotics as well as further imaging/labs. I spoke with the emergency room Erica GARY and discussed patient's case, history, physical exam, and recommendations. Patient proceeding directly to the emergency room via private car at this time. Coding Level of Care Code Est Pt Level 3 (93706) Diagnoses Swelling of joint, elbow, right M25.421
[2024-11-22 09:45] VITALS: BP 130/80; PULSE 86; O2SAT 98
== END 2024-11-22 10:39 | disposition home or self-care (01) ==
PROVIDERS: PCP Internal Medicine; Visit Provider Physician Assistant Medical
DX: M25.421 Effusion, right elbow (principal)

== ENCOUNTER → 2024-11-22 09:32 | Outpatient (BNVA) | payer OTHER, SELFPAY | PROVIDERS: PCP Internal Medicine | DX: M25.421 Effusion, right elbow (principal) | CPT/HCPCS: 99212 ==

== ENCOUNTER 2024-11-22 11:15 | Emergency (ER) | payer OTHER, SELFPAY ==
--- NOTE | ~2024-11-22 | US_ITS ---
EXAMINATION: US TRIPLEX UPPER EXTREMITY, RIGHT CLINICAL INFORMATION: Trauma, swelling and pain. Rule out DVT. COMPARISON: None available. TECHNIQUE: Color-flow triplex imaging with spectral analysis and compression Doppler was performed on the right upper extremity. FINDINGS: The right internal jugular, subclavian, and axillary veins are patent and free of thrombus. The imaged segment of the right brachiocephalic vein is patent. Spectral doppler waveforms are normal. The brachial, basilic, cephalic, radial, and ulnar veins are patent and compressible. There is a fluid collection within the olecranon bursa measuring 3.0 x 1.6 x 3.1 cm. This could be infected or inflammatory. There are small reactive lymph nodes in the medial distal upper arm. US/US venous duplex UE RT IMPRESSION: 1. No evidence of deep venous thrombosis involving the right upper extremity. 2. Olecranon bursa fluid collection measuring 3.0 x 1.6 x 3 x 1 cm. This could be inflammatory (i.e. gout), versus infectious. Correlate clinically. Electronically signed by: Titi Juan MD 11/22/2024 01:19 PM RACQUEL JOSEPH
[2024-11-22 11:35] VITALS: BP 131/89; PULSE 79; RESP 18; TEMP 36.7; O2SAT 97; BMI 34.1
--- NOTE | 2024-11-22 11:39 | ED_ITS ---
HPI - General Adult General Chief complaint: Skin/Abscess/Foreign Body Stated complaint: Infection R arm Time Seen by Provider: 11/22/24 18:52 Source: patient, RN notes reviewed and old records reviewed Mode of arrival: ambulatory Limitations: no limitations History of Present Illness ED Provider: Maik HPI narrative: 39-year-old male presents for evaluation of right elbow and forearm pain and swelling. The patient reports he fell about 10 days ago, he went to an urgent care facility 4 days ago. He had x-rays that did not show any fracture. He was sent home on levofloxacin He reports he has been taking the antibiotic as prescribed but the redness, pain has been worsening pain Does not have any fevers. He is able to bend and extend the elbow without much difficulty He is not a diabetic Related Data Previous Rx's ?Medication ?Instructions ?Recorded fluoxetine 40 mg capsule (Prozac) 40 mg PO DAILY #30 caps 11/05/24 diclofenac sodium 75 mg 75 mg PO BID pain 10 days #20 tabs 11/19/24 tablet,delayed release levofloxacin 500 mg tablet 500 mg PO DAILY 7 days #7 tabs 11/19/24 cephalexin 500 mg tablet 500 mg PO QID #39 tabs 11/22/24 doxycycline hyclate 100 mg tablet 100 mg PO BID #19 tabs 11/22/24 Allergies Allergy/AdvReac Type Severity Reaction Status Date / Time amoxicillin Allergy Mild Hives Verified 11/22/24 11:38 Review of Systems 2 Constitutional: Constitutional: Denies body ache(s), Denies chills and Denies fever(s) Musculoskeletal: Musculoskeletal: Reports arthralgias, Reports joint swelling and Denies limited range of motion Integumentary/Breasts: Skin/Breast: Reports erythema, Denies rash and Denies wounds PMFSH Past Medical History Medical History Lumbar back pain with radiculopathy affecting right lower extremity Adjustment disorder Surgical History No pertinent past surgical history Family History Family History Father COPD (chronic obstructive pulmonary disease) CHF (congestive heart failure) Mother Hypertension High cholesterol Brother High cholesterol Maternal Grandfather Skin cancer Social History Social History Housing: House Alcohol intake: current Alcohol intake frequency: 0-2 drinks per day Alcohol type: hard liquor Patient Tobacco Use Status: Current someday Tobacco user Tobacco use type: Cigar (once a month) and Smokeless Tobacco (Chewing Tobacco) Smoked in Last 30 Days: No e-Cigarette/Vaping Use: Never Used Second Hand Smoke Exposure: Yes Use of substances other than those prescribed or required for medical reasons: No Advance Directives: No Advance Directives Information Provided: Yes Do you have a plan to hurt others: No Plan service: Yes Current occupational status: employed Current occupational exposures/hazards: No Cognitive needs: No Hearing needs: No Vision needs: No Physical Exam ED Vital Signs: Vital Signs - 24 hr 11/22/24 11:35 11/22/24 19:04 11/22/24 20:10 Temperature 98.1 F 98.6 F 98.6 F Pulse Rate 79 78 76 Respiratory Rate 18 14 16 Blood Pressure 131/89 145/99 H 141/89 H Pulse Oximetry 97 99 99 Oxygen Delivery Method Room Air Room Air Room Air BMI result Body Mass Index 34.1 Extrem Other: Patient has edema with erythema extending from just above the elbow covering most of the dorsal surface of the right forearm. This is blotchy erythema. There are no open wounds, there is a small area of fluctuance distal to the right elbow. The patient has full range of motion with flexion-extension of the elbow, wrist and all fingers of the right hand. Course Course Course Narrative: This is a rapid medical exam performed by Glenny Jameson PA-C. The patient is a 39-year-old male who presents with concern for right upper extremity infection. Patient states he fell a week ago, had negative x-rays. He developed redness and swelling of the right upper extremity over the forearm, he was seen at urgent Care, placed on Levaquin, his symptoms have not improved. On exam, the right upper extremity is swollen distally with overlying erythema, patient can flex and extend from the elbow. We will order screening labs and an ultrasound to rule out DVT. The patient is stable and can return to the waiting room pending his full medical assessment. Medications Administered Discontinued Medications Generic Name Dose Route Start Last Admin Trade Name Freq PRN Reason Stop Dose Admin Cephalexin HCl 500 mg 11/22/24 19:51 11/22/24 20:05 Cephalexin 500 Mg Capsule PO 11/22/24 19:52 500 mg ONCE ONE Administration Doxycycline Monohydrate 100 mg 11/22/24 19:51 11/22/24 20:05 Doxycycline Monohydrate 100 Mg Capsule PO 11/22/24 19:52 100 mg ONCE ONE Administration Lidocaine/Epinephrine 10 ml 11/22/24 19:13 11/22/24 19:38 Lidocaine Hcl 1%/Epi 1:100,000 10 Ml Vial INFILTRATI 11/22/24 19:14 10 ml ONCE ONE Administration Procedures Abscess I/D Site: upper extremity Side (if applicable): right Local Anesthetic: lidocaine 1% and with epi Amount of anesthesia used (mL): 5 Technique: needle aspiration Amount of fluid expressed (mL): 5 Sent for culture/gram staining?: No Irrigation: No Packing used?: none Medical Decision Making Medical Decision Making MDM Narrative: 39-year-old male presents for evaluation of worsening right arm and elbow redness and pain. Clinically the patient does not have a septic joint. He has good range of motion of the elbow. His redness is spreading distally down the forearm. He had a workup that included labs, an ultrasound. His labs are reassuring, no evidence of systemic infection. His ultrasound shows no DVT but does show a fluid collection consistent with an abscess. This measures up to 3 x 1.6 x 3.1 cm. I was able to needle aspirate approximately 4/5 cc of purulent/bloody fluid. Levofloxacin would not be the 1st choice of antibiotic for cellulitis or a skin infection in a nondiabetic. I did consider admission for the patient however he was quite well appearing, he is not septic. I was able to aspirate a good amount of purulent drainage from his abscess. We will discharge the patient is cephalexin and doxycycline. He was given strict return precautions to return to the ER. If he was not improve with this course of antibiotics he will likely require admission for IV antibiotics plus or minus an orthopedic consult Differential Diagnosis Differential Diagnoses: The differential diagnosis associated with the presentation includes Abscess Cellulitis Septic joint less likely Dermatitis Bursitis Gout Admission/Observation Consideration of admission/observation: Escalation of care including admission/observation considered Lab Data 11/22/24 11:58 11/22/24 11:58 Labs: Lab Results 11/22/24 Range/Units 11:58 WBC 8.6 (4.8-10.8) X10*3/uL RBC 4.94 (4.60-5.80) X10*6/uL Hgb 14.9 (14.0-18.0) g/dl Hct 43.7 (42.0-52.0) % MCV 88.5 (80.0-98.0) fL MCH 30.2 (27.0-33.0) pg MCHC 34.1 (31.0-36.0) g/dl RDW 12.2 (11.0-16.0) % Plt Count 204 (160-400) X10*3/uL MPV 11.0 (9.4-12.4) fL Immature Gran % (Auto) 0.4 (0.0-0.4) % Neut % (Auto) 68.2 (45-73) % Lymph % (Auto) 20.0 (20-40) % [place] % (Auto) 9.4 (2-11) % Eos % (Auto) 1.6 (0-4) % Baso % (Auto) 0.4 (0-2) % Lymph # (Auto) 1.7 (1.2-4.9) X10*3/uL [place] # (Auto) 0.8 (0.1-1.2) X10*3/uL Eos # (Auto) 0.1 (0.0-0.4) X10*3/uL Baso # (Auto) 0.0 (0.0-0.2) X10*3/uL Abs Immat Gran (auto) 0.03 (0.00-0.03) X10*3/uL Absolute Neuts (auto) 5.8 (2.0-8.3) x10*3/uL Absolute Nucleated RBC 0.000 (0.0-0.012) X10*3/uL Nucleated RBC % (auto) 0.0 (0.0-0.2) /100WBC Sodium 139 (135-145) mmol/L Potassium 3.8 (3.3-5.1) mmol/L Chloride 107 (96-108) mmol/L Carbon Dioxide 25 (22-29) mmol/L Anion Gap 11 L (12-20) BUN 13 (9-16) mg/dL Creatinine 0.95 (0.5-1.4) mg/dL Estim Creat Clear Calc 153.4 Estimated GFR > 60 Random Glucose 103 (60-115) mg/dL Calcium 9.2 (8.4-10.2) mg/dL Magnesium 2.1 (1.6-2.6) mg/dL Discharge Plan Discharge Clinical Impression: Abscess of forearm, right Patient Disposition: Home, Self-Care Instructions: Abscess Follow-up (ED) Additional Instructions: Take cephalexin and doxycycline as prescribed for 10 days. You should discontinue the levofloxacin Apply warm compresses to the swollen area approximately every 8 hours for 10-15 minutes to help with drainage Follow-up with your primary doctor, return for new or worsening symptoms, especially if you develop a fever, worsening pain or unable to bend or straighten your elbow Prescriptions: New cephalexin 500 mg tablet 500 mg PO QID Qty: 39 0RF doxycycline hyclate 100 mg tablet 100 mg PO BID Qty: 19 0RF No Action levofloxacin 500 mg tablet 500 mg PO DAILY 7 Days Qty: 7 0RF diclofenac sodium 75 mg tablet,delayed release (DR/EC) 75 mg PO BID 10 Days Qty: 20 0RF fluoxetine [Prozac] 40 mg capsule 40 mg PO DAILY Qty: 30 2RF Interventions: ED Discharge Assessment Last Done: 11/22/24 20:10 Print Language: Emirati
[2024-11-22 12:03] LABS: MANUAL DIFF FLAG NO
[2024-11-22 12:05] LABS: Basophils Percent Auto 0.4 % (0-2); Eosinophils Absolute Auto 0.1 X10*3/uL (0.0-0.4); Eosinophils Percent Auto 1.6 % (0-4); Hematocrit 43.7 % (42.0-52.0); Hemoglobin 14.9 g/dl (14.0-18.0); Imm Gran Abs Auto 0.03 X10*3/uL (0.00-0.03); Imm Gran Pct Auto 0.4 % (0.0-0.4); Lymphocytes Absolute Auto 1.7 X10*3/uL (1.2-4.9); Mean Corpuscular HGB Conc 34.1 g/dl (31.0-36.0); Mean Corpuscular Hemoglobin 30.2 pg (27.0-33.0); Mean Corpuscular Volume 88.5 fL (80.0-98.0); Monocytes Absolute Auto 0.8 X10*3/uL (0.1-1.2); Monocytes Percent Auto 9.4 % (2-11); Neutrophils Absolute Auto 5.8 x10*3/uL (2.0-8.3); Neutrophils Percent Auto 68.2 % (45-73); Platelet Count 204 X10*3/uL (160-400); Red Blood Count 4.94 X10*6/uL (4.60-5.80); Red Cell Distribution Width 12.2 % (11.0-16.0); White Blood Count 8.6 X10*3/uL (4.8-10.8)
[2024-11-22 12:18] LABS: Anion Gap 11 (12-20); Blood Urea Nitrogen 13 mg/dL (9-16); Calcium 9.2 mg/dL (8.4-10.2); Carbon Dioxide 25 mmol/L (22-29); Chloride 107 mmol/L (96-108); Creatinine Clr Calc Pharmacy 153.4; Estimated Glomerular Filt Rate > 60; Glucose Random 103 mg/dL (60-115); Magnesium 2.1 mg/dL (1.6-2.6); Potassium 3.8 mmol/L (3.3-5.1); Sodium 139 mmol/L (135-145)
[2024-11-22 19:04] VITALS: BP 145/99; PULSE 78; RESP 14; TEMP 37; O2SAT 99
[2024-11-22] MEDS: Lidocaine HCl 1%/Epi 1:100,000 10 ML VIAL INFILTRATI (19:38)
[2024-11-22] MEDS: cephALEXin 500 MG CAPSULE PO (20:05)
[2024-11-22] MEDS: Doxycycline Monohydrate 100 MG CAPSULE PO (20:05)
[2024-11-22 20:10] VITALS: BP 141/89; PULSE 76; RESP 16; TEMP 37; O2SAT 99
== END 2024-11-22 20:28 | disposition home or self-care (01) ==
PROVIDERS: Physician Assistant Medical; Emergency Provider Internal Medicine; PCP Internal Medicine
DX: L02.413 Cutaneous abscess of right upper limb (principal); M79.644 Pain in right finger(s); R60.0 Localized edema; Z79.899 Other long term (current) drug therapy
CPT/HCPCS: 10060; 36415; 80048; 83735; 85025; 93971; 99284; J2004

== ENCOUNTER → 2024-11-22 11:38 | Outpatient (BNV) | payer OTHER, SELFPAY | PROVIDERS: PCP Internal Medicine; Visit Provider Radiology Diagnostic Radiology | DX: M79.601 Pain in right arm (principal); R59.9 Enlarged lymph nodes, unspecified | CPT/HCPCS: 93971 ==

== ENCOUNTER 2024-11-25 10:13 | Outpatient (REF) | payer OTHER, SELFPAY ==
--- NOTE | ~2024-11-25 | CT_ITS ---
CLINICAL HISTORY: NODULES CT chest without contrast Comparison: CT/[place] - CT CHEST WO IV CON - 12/08/23 15:33 EST Findings: There is no cardiomegaly or pericardial effusion. Minimal atherosclerotic disease of the coronary arteries. No suspicious thyroid lesion. No significant mediastinal adenopathy. A few tiny pulmonary nodules are again noted, for example right middle lobe, axial 75, 3 mm and stable. Reference axial image 58 along the left major fissure, 3 mm nodule No new, increasing or suspicious nodule. No effusion or pneumothorax. Visualized upper abdomen is unremarkable. No acute osseous finding. Impression: Stable tiny benign nodules. No follow-up recommended. This document has been electronically signed by: Sean Trevino MD on 11/26/2024 13:14:22
--- OUTSIDE RECORDS SUMMARY | 2024-11-25 11:25 | XMS_ITS | Continuity of Care Document ---
Author Name [facility] Organization [facility] Care Team Providers Care Corporate Lawyer Name Role Phone [facility] Unavailable Unavailable Problems Combined list of problems [...] Condition DoD ankle sprain left Inactive Condition [facility] Patient Counseling: Inactive Condition No treatment [...] TRIHYDRATE) Drug allergy (disorder) Unknown active [facility]/08/2009 [facility] Immunizations Combined list of available immunizations from the Department of Defense and Veterans Affairs facilities. Immunization Series Date Given Administered By Site Reaction Lot Number CVX Code Drug Brineyard Supervisor Status Comments Source influenza, injectable, quadrivalent, preservative free 2021 JANES GILLETTE () Not Given influenza , injectabl e, quadrival ent, preservat tino free [facility] Influenza, injectable, quadrivalent, preservative free 0 [...] dose 0 2020 Unknown, Provider TRS 208 [facility] (PFR) complet ed SARS-COV- 2 (COVID-19 ) vaccine, mRNA, spike protein, LNP, preservat tino free, 30 mcg/0.3mL dose DoD COVID-19, mRNA, LNP-S, PF, 30 mcg/0.3 mL dose 2020 JANES GILLETTE () Not Given COVID-19, mRNA, LNP-S, PF, 30 mcg/0.3 mL dose DoD SARS-COV-2 (COVID-19) vaccine, mRNA, spike protein, LNP, preservative free, 30 mcg/0.3mL dose 0 2020 Unknown, Provider TRS 208 [employer] (PFR) complet ed SARS-COV- 2 (COVID-19 ) [...] Influenza , injectabl e, quadrival ent, preservat tnio free DoD influenza, injectable, quadrivalent, contains preservative 1 2018 [id number] 158 [employer] (SKB) complet ed influenza , injectabl e, quadrival ent, contains preservat tino DoD influenza, injectable, quadrivalent, contains preservative 1 2017 [id number] 158 Unknown (UNK) comple t ed influenza , injectabl e, quadrival ent, contains preservat tino DoD Influenza, injectable, quadrivalent, preservative free 1 2016 [id number] 150 [employer] (SKB) complet ed Influenza , injectabl e, quadrival ent, preservat tino free DoD influenza, injectable, quadrivalent, contains preservative 1 2015 [id number] 158 Seqirus (SEQ) complet ed influenza , injectabl e, quadrival ent, contains preservat tino DoD measles, mumps and rubella virus vaccine 2 2014 [id number] 03 Merck (MSD) complet ed measles, mumps and rubella virus vaccine DoD Influenza, seasonal, injectable 2013 CARMELA ROQUE () Not Given Influenza , seasonal, injectabl e DoD influenza, injectable, quadrivalent, contains preservative 1 2013 [id number] 158 Nov[employer]is [employer] Adriano. (NOV) complet ed influenza , injectabl e, quadrival ent, contains preservat tino DoD Influenza, seasonal, injectable 0 2012 141 (MVX) complet ed Influenza , seasonal, injectabl e DoD Influenza, seasonal, injectable, preservative free 1 2012 [id number] 140 Unknown (UNK) comple t ed Influenza , seasonal, injectabl e, preservat tino free DoD Influenza, seasonal, injectable, preservative free 1 2011 [id number] 140 [employer]is [employer]ano. (NOV) complet ed Influenza , seasonal, injectabl e, preservat tino free DoD tuberculin skin test; purified protein derivative solution, intradermal 0 2010 TRUDI BRIGGS 96 Transcribed (TRS) complet ed tuberculi n skin test; purified protein derivativ e solution, intraderm al DoD Influenza, seasonal, injectable, preservative free 1 2010 [id number] 140 Unknown (UNK) comple t ed Influenza , seasonal, injectabl e, preservat tino free DoD typhoid Vi capsular polysaccharid e vaccine 1 2010 [id number] 101 Sanofi Pasteur ([facility]) complet ed typhoid Vi capsular polysacch aride vaccine DoD anthrax vaccine 2 2010 [id number] 24 [facility] ([facility]) complet ed anthrax vaccine DoD tetanus toxoid, reduced diphtheria toxoid, and acellular pertu is vaccine, adsorbed 1 2010 [id number] 115 Sanofi Pasteur ([facility]) complet ed tetanus toxoid, reduced diphtheri a toxoid, and acellular pertussis vaccine, adsorbed DoD influenza virus vaccine, unspecified formulation 1 2010 [id number] 88 [facility] ([facility]) complet ed influenza virus vaccine, unspecifi ed formulati on DoD hepatitis A vaccine, adult dosage 4 2009 [id number] 52 [employer] (SKB) complet ed hepatitis A vaccine, adult dosage DoD Novel influenza-H1N 1-09, injectable 1 2008 [id number] 127 [employer]. (NOV) complet ed Novel influenza -E3X2-58, injectabl e DoD anthrax vaccine 1 2008 [id number] 24 [facility] ([facility]) complet ed anthrax vaccine DoD typhoid Vi capsular polysaccharid e vaccine 1 2008 [id number] 101 Sanofi Pasteur ([facility]) complet ed typhoid Vi capsular polysacch aride vaccine DoD influenza virus vaccine, live, attenuated, for intranasal use 1 2007 [id number] 111 Other (OTH) complet ed influenza virus vaccine, live, attenuate d, for intranasa l use DoD influenza virus vaccine, live, attenuated, for intranasal use 1 2006 [id number] 111 [employer] (MED) complet ed influenza virus vaccine, [...] dosage DoD vaccinia (smallpox) vaccine 1 2005 [id number] 75 Rogelio-Geraldo (WAL) complet ed vaccinia (smallpox ) vaccine DoD typhoid Vi capsular polysaccharid e vaccine 1 2005 [id number] 101 Sanofi Pasteur (PMC) complet ed typhoid [...] 2 Lf of diphtheria toxoid) 1 2004 [id number] 09 Sanofi Pasteur (PMC) complet ed tetanus and diphtheri a toxoids, adsorbed, preservat tino free, for adult use (2 Lf of tetanus toxoid and 2 Lf of diphtheri a toxoid) DoD poliovirus vaccine, inactivated 1 2004 [id number] 10 Sanofi Pasteur (PMC) complet ed polioviru s vaccine, inactivat ed DoD influenza virus vaccine, split virus (incl. purified surface antigen)-reti red CODE 1 2004 [id number] 15 FL3XX. (MED) complet ed influenza virus vaccine, split virus (incl. purified surface antigen)- retired CODE DoD meningococcal polysaccharid e vaccine (MPSV4) 1 2004 [id number] 32 Sanofi Pasteur (PMC) complet ed meningoco [...] [place] [place] [facility] ) OUTPATIENT [id number] YEHUDA Vides 08/30 Released w/o Limitations Veronica [place] Optomet [facility]) [facility] [place]) OUTPATIENT [id number] LATANYA PERALTA 08/31 Released w/o Limitations Ver[facility] [place](Rece [facility] Station ) [facility](1st C.R.O.W.S .) OUTPATIENT [id number] IMAN Miranda 01/24 Released w/o Limitations [facility](1 st C.R.O.W .S.) [facility]([place] 2-2 SBCT) OUTPATIENT [id number] left ankle pain TRUDI SAGASTUME 08/01 Released w/o Limitations [facility]([place] 2-2 SBCT) [facility]([place] OUTPATIENT [id number] JESICA SUAREZ 09/17 Released w/o Limitations [facility]([place] [facility] ) [facility](AMH S 01A17 Fabricati on) OUTPATIENT [id number] hiv screeni YVAN Villegas 01/08 Released w/o Limitations [facility](A MHS 01A17 [place] t[place]) [facility](AMH S 01A17 Fabricati on) OUTPATIENT [id number] HIV test RENITA FERNANDEZ 05/27 Released w/o Limitations [facility](A MHS 01A17 [place] t[place]) [facility](AMH S 01A17 Fabricati on) OUTPATIENT [id number] oversea s screeni RENITA Feng 06/01 Released w/o Limitations [facility](A MHS 01A17 [place] t[place]) [facility](ZZZBH R Physical Exam) OUTPATIENT [id number] INPROCE [facility] RON RODRIGUEZ 07/21 Released w/o Limitations [facility](ZZZ R Physica l Exam) [facility](1AD 11/07 In BAS) OUTPATIENT [id number] [facility] TAJALLI 07/29 Released w/o Limitations [facility](1AD 2 In BAS) [facility](ZZZ R Physical Exam) OUTPATIENT [id number] PDHA RON RODRIGUEZ 08/30 Released w/o Limitations [facility](ZZZ BHR Physica l Exam) [facility]) OUTPATIENT [id number] Pre-Dep loyment Hearing Test JOBY COX 08/30 Released w/o Limitations [facility] ation) [facility] ) OUTPATIENT [id number] eye exam GENO FRENCH 02/22 Released w/o Limitations [facility] Optomet ry) [facility]) OUTPATIENT [id number] PHA, online portion complet ed FRANCISCO RIOS 03/14 Released w/o Limitations [facility]) [facility] OUTPATIENT [id number] 06/17 Released w/o Limitations Theater Facilit y [facility](ZZZ R Pre/Post Deploymen t) OUTPATIENT [id number] redeplo yment FRANCISCO RIOS 08/13 Released w/o Limitations [facility](ZZZ BHR Pre/Pos t Deploym ent) [facility](1AD 11/07 In BAS) OUTPATIENT [id number] pdhWALTER Castillo 01/15 Released w/o Limitations [facility](1AD 6th In BAS) [facility]) OUTPATIENT [id number] meta/yue d pod/fit test NASRA UNGER 09/02 Released w/o Limitations [facility]( [facility]) ANGELA Phan([facility]) OUTPATIENT [id number] Notes Entered by: MILIND FERRO 04 May 2017 1319 ------- ------- ------- ------- -- PHA KATHERINE DURÁN 05/04 Released w/o Limitations ANGELA Phan([facility]) ANGELA Phan([facility]) OUTPATIENT [id number] Notes Entered by: MILIND FERRO 24 May 2017 1314 ------- ------- ------- ------- -- Hearing follow up KATHERINE DURÁN 05/24 Released w/o Limitations ANGELA Phan([facility]) ANGELA Phan([facility] S[facility]A [facility]) TELE CONSULT [id number] 2 Notes Entered by: MAURICIO DAO 19 Jun 2019 0751 ------- ------- ------- ------- -- Month Medicat ion Review CORRINE DAO 06/19 Other Not Elsewhere Classified ANGELA Phan([facility]) ANGELA Phan([facility] F[facility]B [facility]) TELE CONSULT [id number] 3 Notes Entered by: MAURICIO DAO 10 Sep 2020 1124 ------- ------- ------- ------- -- Month Medicat ion Review CORRINE DAO 09/10 Other Not Elsewhere Classified ANGELA Phan([facility] F[facility]) Procedures Combined list of: 1) Procedures from Department of Veterans Affairs facilities going back up to thelast 18 months, not all VA non-surgical procedures are included; 2) All procedures from the Department of Defense facilities. Procedure Procedure Type Code Date Perfomer Comments Sourchristopher e HEPATITIS A VACCINE (HEPA), ADULT DOSAGE, FOR INTRAMUSCULAR USE 08/31/20 05 DoD PHYS/OTH QUALIFIED HEALTH BPM ANALYST QUALIFIED,EDUCATION, TRAIN,LICENSURE/REGU LATION (WHEN APPLICABLE) EDUC SER RENDERED TO PATS IN A GRP SETTING (EG,,OBESITY ,OR DIABETIC INSTRUCT) 08/30/20 05 [facility] OPHTHALMOLOGICAL SERVICES: MEDICAL EXAMINATION AND EVALUATION WITH INITIATION OF DIAGNOSTIC AND TREATMENT PROGRAM; INTERMEDIATE, NEW PATIENT 08/30/20 05 [facility] PSYCHIATRIC DIAGNOSTIC EVALUATION 02/11/20 22 [facility] MOST RECENT DIASTOLIC BLOOD PRESSURE 80-89 MM HG (HTN, CKD, CAD) (DM) 05/24/20 17 [facility] WEIGHT RECORDED (PAG) 05/04/20 17 [facility] HEPATITIS A VACCINE (HEPA), ADULT DOSAGE, FOR INTRAMUSCULAR USE 04/06/20 10 DoD PHYS/OTH QUALIFIED HEALTH BPM ANALYST QUALIFIED,EDUCATION, TRAIN,LICENSURE/REGU LATION (WHEN APPLICABLE) EDUC SER RENDERED TO PATS IN A GRP SETTING (EG,,OBESITY ,OR DIABETIC INSTRUCT) 02/11/20 09 [facility] ANALYSIS OF CLINICAL DATA STORED IN COMPUTERS (EG, ECGS, BLOOD PRESSURES, HEMATOLOGIC DATA) 10/23/19 09 [facility] SUPP &MATERIAL (EXCEPT SPECTACLE),PROVID,TH E PHYS/OTH QUALIFIED HEALTH BPM ANALYST OVER &ABOVE THOSE USUALLY INCLD W THE OFFICE VISIT/OTH SER RENDERED (LIST DRUG,TRAYS,SUPP,OR MATERIAL PROVID) 09/17/20 08 [facility] ANALYSIS OF CLINICAL DATA STORED IN COMPUTERS (EG, ECGS, BLOOD PRESSURES, HEMATOLOGIC DATA) 10/04/19 08 [facility] COLLECTION OF VENOUS BLOOD BY VENIPUNCTURE 05/10/20 07 [facility] PSYC TSTNG(PSYCODIAG ASSESS,EMOTITY,INTEL LECTUAL ABILITIES,PERSONALIT Y&PSYCOPATHOLOGY,EG, MMPI&WAIS),W QUALIFIED HEALTH CARE PROFSIONAL INTERP&RPT,ADMINISTE RED MECHANICAL DETAILER,/HR,TECH TME,FCE-2-FCE 02/28/20 12 [facility] INDIVIDUAL PSYCHOTHERAPY, INSIGHT ORIENTED, BEHAVIOR MODIFYING AND/OR SUPPORTIVE, IN AN OFFICE OR OUTPATIENT FACILITY, APPROXIMATELY 45 TO 50 MINUTES [id number] WITH THE PATIENT 10/27/19 12 [facility] INDIVIDUAL PSYCHOTHERAPY, INSIGHT ORIENTED, BEHAVIOR MODIFYING AND/OR SUPPORTIVE, IN AN OFFICE OR OUTPATIENT FACILITY, APPROXIMATELY 45 TO 50 MINUTES [id number] WITH THE PATIENT 10/13/19 12 [facility] INDIVIDUAL PSYCHOTHERAPY, INSIGHT ORIENTED, BEHAVIOR MODIFYING AND/OR SUPPORTIVE, IN AN OFFICE OR OUTPATIENT FACILITY, APPROXIMATELY 20 TO 30 MINUTES [id number] W THE PATIENT; W MED EVAL & MGT SER 10/12/19 12 DoD INDIVIDUAL PSYCHOTHERAPY, INSIGHT ORIENTED, BEHAVIOR MODIFYING AND/OR SUPPORTIVE, IN AN OFFICE OR OUTPATIENT FACILITY, APPROXIMATELY 45 TO 50 MINUTES [id number] WITH THE PATIENT 09/27/20 11 [facility] INDIVIDUAL PSYCHOTHERAPY, INSIGHT ORIENTED, BEHAVIOR MODIFYING AND/OR SUPPORTIVE, IN AN OFFICE OR OUTPATIENT FACILITY, APPROXIMATELY 20 TO 30 MINUTES [id number] W THE PATIENT; W MED EVAL & MGT SER 09/19/20 11 [facility] INDIVIDUAL PSYCHOTHERAPY, INSIGHT ORIENTED, BEHAVIOR MODIFYING AND/OR SUPPORTIVE, IN AN OFFICE OR OUTPATIENT FACILITY, APPROXIMATELY 45 TO 50 MINUTES [id number] WITH THE PATIENT 09/02/20 11 [facility] PSYCHIATRIC DIAGNOSTIC INTERVIEW EXAMINATION 09/02/20 11 [facility] PSYCHIATRIC DIAGNOSTIC INTERVIEW EXAMINATION 08/24/20 11 [facility] SCREENING TEST OF VISUAL ACUITY, QUANTITATIVE, BILATERAL 03/14/20 11 [facility] FITTING OF SPECTACLES, EXCEPT FOR APHAKIA; MONOFOCAL 02/23/20 11 [facility] PURE TONE AUDIOMETRY (THRESHOLD); AIR ONLY 08/30/20 10 DoD OXYGEN UPTAKE, GAS ANALYSIS; REST AND EXERCISE, DIRECT, SIMPLE 09/02/20 14 [facility] Most Recent Diastolic BP 80-89 mmHg Most Recent Diastolic BP 80-89 mmHg 3079F 05/24/20 17 KATHERINE DURÁN Most Recent Systolic BP 130 - 139 mmHg Most Recent Systolic BP 130 - 139 mmHg 3075F 05/24/20 17 KATHERINE DURÁN Threshold Audiogram (Pure Tone) Threshold Audiogram (Pure Tone) 51379 05/24/20 17 KATHERINE DURÁN Weight Recorded Weight Recorded 05/04/20 17 KATHERINE DURÁN Most Recent Diastolic BP 80-89 mmHg Most Recent Diastolic BP 80-89 mmHg 3079F 05/04/20 17 KATHERINE DURÁN Most Recent Systolic BP < 130 mmHg Most Recent Systolic BP < 130 mmHg 3074F 05/04/20 17 KATHERINE DURÁN Threshold Audiogram (Pure Tone) Threshold Audiogram (Pure Tone) 57851 05/04/20 17 KATHERINE DURÁN Screening Test Of Visual Acuity, Quantitative, Bilateral Screening Test Of Visual Acuity, Quantitative, Bilateral 87976 05/04/20 17 KATHERINE DURÁN PT A e ment Physical Performance Testing PT Assessment Physical Performance Testing 13234 09/02/20 14 NASRA MUSA Pulmon Function - O2 Uptake - Gas Analysis Rest, Ind Pulmon Function - O[place] [address] 09/02/20 14 NASRA MUSA [facility] Pulmonary Function - O2 Uptake - Gas Determination Pulmonary Function - O2 Uptake - Gas Determination 99379 09/02/20 [facility] PT Performance Testing A istive Technology A e [facility] PT Performance Testing Assistive Technology Assessment 23787 09/02/[address] [facility] Psychiatric Diagnostic Evaluation Review of Records and Reports Psychiatric Diagnostic Evaluation Review of Records and Reports 90733 02/28/20 12 ANTONIA SUNSHINE [facility] Psychologic Testing And Report Administered By Trench Trimmer Fine Psychologic Testing And Report Administered By Trench Trimmer Fine 82508 02/28/20 12 ANTONIA SUNSHINE [facility] Psychiatric Diagnostic Evaluation Comprehensive Examination Psychiatric Diagnostic Evaluation Comprehensive Examination 27836 02/28/20 12 ANTONIA SUNSHINE [facility] Clinical Social Work Individual Outpatient Counseling 45 Minutes Clinical Social Work Individual Outpatient Counseling 45 Minutes 78151 10/28/19 12 BRIELLE RUIZ [facility] Clinical Social Work Individual Outpatient Counseling 45 Minutes Clinical Social Work Individual Outpatient Counseling 45 Minutes 57501 10/14/19 12 BRIELLE RUIZ Psychotherapy Individual Approx 30 Min W/ Medical Evaluation & Management Psychotherapy Individual Approx 30 Min W/ Medical Evaluation & Management 55190 10/12/19 12 DILEEP HANSON [facility] Clinical Social Work Individual Outpatient Counseling 45 Minutes Clinical Social Work Individual Outpatient Counseling 45 Minutes 03128 09/28/20 11 BRIELLE RUIZ Psychotherapy With Medication Management Psychotherapy With Medication Management 20195 09/19/20 11 DILEEP HANSON [facility] Clinical Social Work Individual Outpatient Counseling 45 Minutes Clinical Social Work Individual Outpatient Counseling 45 Minutes 14139 09/08/20 11 BRIELLE RUIZ Psychiatric Diagnostic Evaluation Comprehensive Examination Psychiatric Diagnostic Evaluation Comprehensive Examination 41025 09/02/20 11 DILEEP HANSON [facility] Psychiatric Diagnostic Evaluation Comprehensive Examination Psychiatric Diagnostic Evaluation Comprehensive Examination 05359 08/30/20 11 BRIELLE RUIZ [employer] [facility] Fitting Monofocal Except For Aphakia [employer] [facility] Fitting Monofocal Except For Aphakia 48232 02/23/20 11 GENO FRENCH Fitted and ordered 350, FOC. DoD Determination Of Refractive State Determination Of Refractive State 53259 02/23/20 11 GENO FRENCH [facility] Ophthalmological New Patient Start Comprehensive Care Ophthalmological New Patient Start Comprehensive Care 88920 02/23/20 11 GENO FRENCH [facility] Threshold Audiogram (Pure Tone) Threshold Audiogram (Pure Tone) 17764 08/30/20 10 JOBY COX [facility] Physician Supervised Group Educational Services 09/17/20 08 NARENDRA COOLEY [facility] Physician Supervised Services Provision Of Special Supplies Physician Supervised Services Provision Of Special Supplies 67638 09/17/20 08 NARENDRA COOLEY Audiometry Group Testing Audiometry Group Testing 73147 09/17/20 08 NARENDRA COOLEY [facility] ENT Services ENT Services 42343 09/17/20 08 NARENDRA COOLEY [facility] Special Physician Services Analysis Of Computerized Data Special Physician Services Analysis Of Computerized Data 95448 09/17/20 08 NARENDRA COOLEY [facility] Threshold Audiogram (Pure Tone) Threshold Audiogram (Pure Tone) 03510 09/17/20 08 NARENDRA COOLEY [facility] Influenza Split Virus Vaccine 0.5mL Dosage Intramuscular 08/31/20 05 [facility] Immunization Administration By Injection, One Vaccine Immunization Administration By Injection, One Vaccine 42671 08/31/20 05 [facility] Hepatitis A Vaccine Adult Dosage (Intramuscular Use) Hepatitis A Vaccine Adult Dosage (Intramuscular Use) 48058 08/31/20 05 [facility] Venipuncture Venipuncture 56049 08/31/20 05 [facility] Vaccines Viral Measles, Mumps and Rubella, Live Vaccines Viral Measles, Mumps and Rubella, Live 93867 08/31/[address] [place] [address] Td Vaccine Td Vaccine 58215 08/31/20 05 [facility] Skin Test Anergy Tuberculin Intradermal Skin Test Anergy Tuberculin Intradermal 56305 08/31/20 05 [facility] Physician Supervised Injection Subcutaneous Physician Supervised Injection Subcutaneous 38255 08/31/20 05 [facility] Meningococcal Polysaccharide Vaccine Serogroup C Meningococcal Polysaccharide Vaccine Serogroup C 26637 08/31/20 05 [facility] Vaccines Viral Polio, Inactivated Vaccines Viral Polio, Inactivated 98126 08/31/20 05 RONLATANYA WRAY [facility] Immunization Administration By Injection, Each Additional Vaccine 08/31/20 05 RONLATANYA WRAY [facility] [employer] Fitting Monofocal Except For Aphakia [employer] [facility] Fitting Monofocal Except For Aphakia 87397 08/30/20 05 YEHUDA POLK Determination Of Refractive State Determination Of Refractive State 83093 08/30/20 05 YEHUDA POLK Ophthalmological New Patient Start Intermediate Level Care Ophthalmological New Patient Start Intermediate Level Care 37650 08/30/20 05 YEHUDA POLK Psychiatric Diagnostic Evaluation Psychiatric Diagnostic Evaluation 55660 ERNESTO MOYER [facility] Social History Combined list of available smoking, tobacco, and other social history from Department of Defense and Veterans Affairs facilities. Social History Type Response Date Comment Sourc e This section is an empty social history section. DoD
== END 2024-11-25 10:14 | disposition home or self-care (01) ==
LOC: HO.CT 10:13
PROVIDERS: PCP Internal Medicine; Visit Provider Internal Medicine Pulmonary Disease
DX: R91.8 Other nonspecific abnormal finding of lung field (principal)
CPT/HCPCS: 71250

== ENCOUNTER → 2024-11-25 10:16 | Outpatient (BNV) | payer OTHER, SELFPAY | PROVIDERS: PCP Internal Medicine; Visit Provider Radiology Vascular & Interventional Radiology | DX: R91.8 Other nonspecific abnormal finding of lung field (principal) | CPT/HCPCS: 71250 ==

== ENCOUNTER 2024-12-03 11:36 | Outpatient (AMB) | payer OTHER, SELFPAY ==
[2024-12-03 11:41] VITALS: BP 122/70; PULSE 72; O2SAT 97; BMI 38.3
--- NOTE | 2024-12-03 11:41 | A.OFFVIS_ITS ---
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 Patient states that over the last year his started to develop wheezing in dyspnea and decrease trying capacity. He he does have family history of COPD in his father who was a smoker. He denies prior personal history of lung issues. His prior CT scan showed no evidence of fibrosis, but small 3 mm and under bilateral pulmonary nodules. He has completed his pulmonary function test that is essentially normal. His follow-up CT chest in 12 months demonstrated no changes in his bilateral 3 mm and under pulmonary nodules. [facility] Medical History Lumbar back pain with radiculopathy affecting right lower extremity Adjustment disorder Surgical History No pertinent past surgical history Family History Father COPD (chronic obstructive pulmonary disease) CHF (congestive heart failure) Mother Hypertension High cholesterol Brother High cholesterol Maternal Grandfather Skin cancer Social History Housing: House Alcohol intake: current Alcohol intake frequency: 0-2 drinks per day Alcohol type: hard liquor Patient Tobacco Use Status: Current someday Tobacco user Tobacco use type: Cigar (once a month) and Smokeless Tobacco (Chewing Tobacco) e-Cigarette/Vaping Use: Never Used Second Hand Smoke Exposure: Yes service: Yes Current occupational status: employed Current occupational exposures/hazards: No Cognitive needs: No Hearing needs: No Vision needs: No Review of Systems Const Denies daytime sleepiness, Denies excessive sweating, Denies fatigue, Denies fever(s), Denies lethargy, Denies malaise, Denies night sweats, Denies snoring and Denies weight loss Eyes Denies blurry vision and Denies itchy eyes ENT Denies nasal congestion, Denies post nasal drip, Denies sinus pain, Denies sinus pressure and Denies other ( Thrush) Card Denies chest pain, Denies pedal edema, Denies dyspnea, Denies orthopnea and Denies paroxysmal nocturnal dyspnea Resp Denies cough, Denies hemoptysis, Denies excessive phlegm production, Denies dyspnea, Denies snoring and Denies wheezing GI Denies abdominal pain and Denies heartburn Musc Denies myalgias, Denies arthralgias and Denies joint swelling Skin/Breast Denies rash Neuro Denies memory loss and Denies seizure-like activity Psych Denies abnormal sleep pattern, Denies anxiety and Denies memory loss Endo Denies excessive sweating, Denies fatigue and Denies heat intolerance Jeff/Lymph Denies easy bruising Aller/Immun Denies itchy eyes, Denies seasonal rhinorrhea and Denies wheezing Physical Exam Vital Signs: Last Vital Signs Pulse 72 12/03/24 11:41 BP 122/70 12/03/24 11:41 Pulse Ox 97 12/03/24 11:41 Oxygen Delivery Method Room Air 12/03/24 11:41 BMI result Body Mass Index 38.3 Const General: no acute distress and alert Nutritional Appearance: not obese Orientation/consciousness: Other orientation findings ( oriented) HEENT Head: Yes atraumatic Eyes General: appearance normal, both eyes and all related structures Sclerae: sclerae normal EOM: EOMs intact bilaterally Neck Neck: Yes supple Lymphatic: no lymphadenopathy noted Resp Effort & Inspection: normal respiratory effort and no use of accessory muscles Auscultation: clear to auscultation bilaterally Cardio Rate: regular rate Rhythm: regular rhythm Heart sounds: no gallops, no murmurs and no rubs Skin General skin exam: other ( warm) Extrem General: No clubbing, No cyanosis and No edema Assessment & Plan Assessment & Plan (1) Pulmonary nodules: Code(s): R91.8 - Other nonspecific abnormal finding of lung field Category: Medical Plan: Results of CT chest reviewed, 12 months of stability on bilateral 3 mm and under pulmonary nodules in low risk patient. No further imaging follow-up is required at this time. Coding Level of Care Code Est Pt Level 3 (23759) Diagnoses Pulmonary nodules R91.8
== END 2024-12-03 11:52 | disposition home or self-care (01) ==
PROVIDERS: PCP Internal Medicine; Visit Provider Internal Medicine Pulmonary Disease
DX: R91.8 Other nonspecific abnormal finding of lung field (principal)
CPT/HCPCS: 99213

== ENCOUNTER → 2024-12-03 11:36 | Outpatient (BNVA) | payer OTHER, SELFPAY | PROVIDERS: PCP Internal Medicine; Visit Provider Internal Medicine Pulmonary Disease | DX: R91.8 Other nonspecific abnormal finding of lung field (principal) | CPT/HCPCS: 99212 ==

== ENCOUNTER 2024-12-19 09:09 | Outpatient (AMB) | payer OTHER, SELFPAY ==
--- NOTE | 2024-12-19 09:31 | A.OFFPC_ITS ---
Vital Signs 12/19/24 09:33 Height 6 ft 4 in Weight 312 lb 4 oz BMI 38.0 BP 140/70 H Blood Pressure Location Lt brachial Position Sitting Pulse 75 Pulse Source Pulse Oximeter Temp 96.9 F Temp Source Temporal Artery Scan Pulse Oximetry (%) 96 Oxygen Delivery Method Room Air Intake Visit Reasons: 6mth f/u Intake Note: Patient is here to follow up on Back pain, RENE, PTSD. 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 Mill Operator: Not Required per policy Accompanied by: Self / Same As Patient Allergies amoxicillin Allergy (Mild, Verified 12/19/24 09:33) Hives Tobacco use date assessed: 12/19/24 Dental Screening Dental Screen Date: 12/19/24 Did you have a dental visit in the last 12 months?: Yes Did you have a dental problem in the last 6 months where you did not have access to dental care?: No Was dental information given to patient?: Patient has dentist [facility] Medical History (Updated 12/19/24 @ 09:39 by RADHA Brown) History of drainage of abscess Lumbar back pain with radiculopathy affecting right lower extremity Adjustment disorder Surgical History No pertinent past surgical history Family History Father COPD (chronic obstructive pulmonary disease) CHF (congestive heart failure) Mother Hypertension High cholesterol Brother High cholesterol Maternal Grandfather Skin cancer Social History Housing: House Alcohol intake: current Alcohol intake frequency: 0-2 drinks per day Alcohol type: hard liquor Patient Tobacco Use Status: Current someday Tobacco user Tobacco use type: Cigar (once a month) and Smokeless Tobacco (Chewing Tobacco) e-Cigarette/Vaping Use: Never Used Second Hand Smoke Exposure: Yes service: Yes Current occupational status: employed Current occupational exposures/hazards: No Cognitive needs: No Hearing needs: No Vision needs: No Questionnaire PHQ-9 Over the last 2 weeks, how often have you been bothered by any of the following problems? 1. Little interest or pleasure in doing things: not at all 2. Feeling down, depressed, or hopeless: not at all 3. Trouble falling or staying asleep, or sleeping too much: not at all 4. Feeling tired or having little energy: not at all 5. Poor appetite or overeating: not at all 6. Feeling bad about yourself - or that you are a failure or have let yourself or your family down: not at all 7. Trouble concentrating on things, such as reading the newspaper or watching television: not at all 8. Moving or speaking so slowly that other people could have noticed. Or the opposite - being so fidgety or restless that you have been moving around a lot more than usual: not at all 9. Thoughts that you would be better off or of hurting yourself in some way: not at all Total score: 0 Depression Screening Interpretation: Negative Depression Screening Done: Yes Source: Developed by Drs. Gwyn Ballesteros, Aby Lua, Selvin Albarran and colleagues, with an educational juvenal from [employer]. Thrive Questionnaire Date Thrive assessed: 12/19/24 I am a: Patient What is your living situation today?: I have a steady place to live Within the past 12 months, did the food you bought not last and you didn't have the money to get more?: Never true Within the past 12 months, did you worry whether your food would run out before you got money to buy more?: Never true Do you have trouble paying for medicines?: No Do you have trouble getting transportation to medical appointments?: No Do you have trouble paying your heating and electricity bill?: No Do you have trouble taking care of your child, family member or friend?: No Do you have trouble with day-to-day activities such as bathing, preparing meals, shopping, managing finances, etc.?: No Are you currently unemployed and looking for a job?: No Are you interested in more education?: No Please select the resources that you would like help with: None Currently or been in a relationship where the following occur: No concerns reported THRIVE Score: 0 AUDIT C Alcohol Use Questionnaire (AUDIT-C) 1. How often do you have a drink containing alcohol?: 2-3 times a week 2. How many drinks containing alcohol do you have on a typical day when you are drinking?: 1 or 2 Total Score: 3 HARSH-7 AMB Questionnaire HARSH-7 Date HARSH - 7 assessed: 12/19/24 Feeling nervous, anxious, or on edge: 0 = Not at all Not being able to stop or control worryin = Not at all Worrying too much about different things: 0 = Not at all Trouble relaxin = Not at all Being so restless that it is hard to sit still: 0 = Not at all Becoming easily annoyed or irritable: 0 = Not at all Feeling afraid as if something awful might happen: 0 = Not at all Total HARSH-7 score (0-4 normal; 5-9 mild; 10-14 moderate; 15-21 severe): 0 Source: Developed by Drs. Gwyn Ballesteros, Aby Lua, Selvin Albarran and colleagues, with an educational juvenal from [employer]. Physical exam (Primary Care) Vital Signs: Last Vital Signs Temp 96.9 F 12/19/24 09:33 Pulse 75 12/19/24 09:33 BP 140/70 H 12/19/24 09:33 Pulse Ox 96 12/19/24 09:33 Oxygen Delivery Method Room Air 12/19/24 09:33 BMI result Body Mass Index 38.0 Tobacco/Smoking Status: Tobacco use Status Tobacco use date assessed 12/19/24 12/19/24 09:41 Patient Tobacco Use Status Current someday Tobacco 12/19/24 09:41 Tobacco use type Cigar (once a month), 12/19/24 09:41 Smokeless Tobacco (Chewing Tobacco) e-Cigarette/Vaping Use Never Used 12/19/24 09:41 PHQ-9: PHQ-9 Score PHQ-9: Total score 0 12/19/24 09:41 Depression Screening Interpretation: Negative Thrive Assessment: Date of Thrive Assessment Date Thrive assessed 12/19/24 12/19/24 09:41 Currently or been in a relationship where the following occur: No concerns reported Coding Level of Care Code Est Pt Level 4 (79293) Complex EM visit Add On G2211 Diagnoses PTSD (post-traumatic stress disorder) F43.10 Lumbar back pain with radiculopathy affecting right lower extremity M54.16 Borderline hyperlipidemia E78.5 Assessment & Plan Assessment & Plan (1) PTSD (post-traumatic stress disorder): Code(s): F43.10 - Post-traumatic stress disorder, unspecified Category: Medical Plan: Patient seen by Psyc provider. Diagnosed with PTSD. On Prozac which is helping prescription sent. (2) Lumbar back pain with radiculopathy affecting right lower extremity: Code(s): M54.16 - Radiculopathy, lumbar region Category: Medical Plan: Condition is stable. (3) Borderline hyperlipidemia: Code(s): E78.5 - Hyperlipidemia, unspecified Category: Medical Plan: BW ordered. Will call with results Plan History of Present Illness The patient is a 39-year-old male presenting with a follow-up for ongoing psychiatric management and evaluation of chronic pain issues. He reports continued low back pain, with sensations extending to the knee, without alleviation from previous consultations with pain sports management internship. The patient persists in managing this condition without opting for injections, informed by familial advice and concern regarding repetitive procedures. The patient's psychiatric history includes a diagnosis of post-traumatic stress disorder (PTSD), managed with Prozac, which he reports as effective. Additionally, he has been actively moderating his alcohol use, initially achieving complete abstinence for a month, and though he temporarily relapsed, he has resumed abstinence, demonstrating improved management over his alcohol use disorder. Pulmonary evaluation has identified a small nodule, monitored by interval imaging revealing no progression, alleviating immediate concerns of malignancy. The patient's prior lipid evaluations indicated marginally elevated cholesterol levels, yet recent laboratory work inadvertently excluded lipid metrics. Anticipated changes in the patient's personal situation, specifically alf and relocation, pose potential challenges to future healthcare access and management. 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 - Psychiatric: Reports improvement in mood with current psychiatric medication. Physical Exam General: Appearance normal, both eyes and all related structures Nutritional Appearance: Well nourished Orientation/consciousness: Patient oriented x3 Limitations: Back pain, pain extending into knee Head: Normal to inspection Neck: Normal visual inspection Chest: Normal palpation of entire chest wall Respiratory: Normal respiratory effort Neurology: Patient oriented x3 Results - Imaging: Pulmonary nodule identified; follow-up imaging shows no growth. Plan Chronic low back and knee pain management to continue with patient abstaining from injectable interventions. Prozac therapy for PTSD remains beneficial with a prescription refill provided. Alcohol use disorder managed successfully with abstinence and lifestyle modifications discussed. Pulmonary nodule stable with no current growth; continued monitoring recommended. Lipid profile to be reassessed for dyslipidemia management. Future care considerations are required in light of upcoming relocation and alf, particularly to establish new mental health resources. Patient was informed and verbally consented to the use of an ambient scribe for clinic note documentation during this visit. Discussion Notes During this visit, I reviewed the patient's current psychiatric treatment plan and reaffirmed the continuation of Prozac, given its effectiveness in managing PTSD symptoms. The patient's efforts to manage alcohol use disorder have been commendable, leading to significant lifestyle improvements. Discussions focused on moving strategies, especially establishing new mental health supports and ensuring continuity of care post-alf. Emphasis was placed on monitoring potential risks for relapse in alcohol use. Pulmonary evaluation insights were shared, and no immediate concerns were identified. Encouragement for ongoing li pid management was communicated, with a fasting lipid panel ordered. The patient expressed understanding and agreement with the discussed care plan. Patient Instructions - Continue current pain management strategies and avoid injections as previously discussed. - Maintain prescribed Prozac regimen. Contact our office if additional support is needed. - Abstain from alcohol and remove any from home to aid in maintaining sobriety. - Schedule and attend follow-up imaging studies for pulmonary nodule monitoring. - Follow-up for a fasting lipid panel as ordered. - Prepare for upcoming relocation by identifying mental health resources in [place]. Medications: Refilled fluoxetine (Prozac) 40 mg PO DAILY 30 caps 2RF
[2024-12-19 09:33] VITALS: BP 140/70; PULSE 75; TEMP 36.1; O2SAT 96; BMI 38.0
== END 2024-12-19 09:59 | disposition home or self-care (01) ==
LOC: HO.HMCH 09:09
PROVIDERS: PCP Internal Medicine; Visit Provider Internal Medicine
DX: F43.10 Post-traumatic stress disorder, unspecified (principal); M54.16 Radiculopathy, lumbar region; E78.5 Hyperlipidemia, unspecified

== ENCOUNTER → 2024-12-19 09:09 | Outpatient (BNVA) | payer OTHER, SELFPAY | PROVIDERS: PCP Internal Medicine; Visit Provider Internal Medicine | DX: F43.10 Post-traumatic stress disorder, unspecified (principal); M54.16 Radiculopathy, lumbar region; E78.5 Hyperlipidemia, unspecified | CPT/HCPCS: 99212 ==